=== PATIENT | male | born 1960 | race Caucasian/White ===

== ENCOUNTER 2018-04-27 09:29 | Day surgery (SDC) | payer BC, SELFPAY ==
[2018-04-27 09:54] VITALS: BP 142/90; PULSE 68; RESP 20; TEMP 36.6; O2SAT 95
[2018-04-27] MEDS: Lactated Ringers 1,000 ML 80 ML IV (10:20)
[2018-04-27] MEDS: Lidocaine 1% Pres-Free 5 ML VIAL (12:11)
--- NOTE | 2018-04-27 12:23 | W.PM.DSUDISC ---
Discharge Plan Disposition Patient Disposition: HOME Condition: Good Discharge Details Attending Provider: Saul Ramos Primary Care Provider: Syed Reyes [place] Meds and New Rx's Prescriptions: New hydrocodone-acetaminophen 5-325 mg Tablet 1 tab PO Q6H PRN PRN (Reason: Pain) Qty: 5 RF: 0 Continue trazodone 50 mg tablet 50 mg PO HS RF: 0 metoprolol succinate 50 MG tablet extended release 24 hr 50 mg PO DAILY RF: 0 aspirin [Aspir-81] 81 MG tablet,delayed release (DR/EC) 81 mg PO DAILY RF: 0 levothyroxine 88 MCG tablet 112 mcg PO DAILY RF: 0 hydrocortisone 30 GM cream 30 gm Topical BID RF: 0 pravastatin 20 MG tablet 20 mg PO DAILY RF: 0 enalapril maleate 20 MG tablet 20 mg PO DAILY RF: 0 olopatadine [Patanol] 5 ML drops 1 drp ophthalmic (eye) PRN PRNRF: 0 fluocinonide 15 GM cream 1 applic Topical PRN PRNRF: 0 fluticasone 16 GM spray,suspension 2 spry Inhalation DAILY RF: 0 coenzyme Q10 [CoQ-10] 100 MG capsule 100 tab PO DAILY RF: 0 cholecalciferol (vitamin D3) [Vitamin D3] 1,000 unit Capsule 1,000 unit PO DAILY RF: 0 sulfacetamide sodium 15 ML drops 2 drp ophthalmic (eye) TID RF: 0 atorvastatin 10 mg Tablet 10 mg PO DAILY RF: 0 lisinopril 20 mg Tablet 20 mg PO DAILY RF: 0 flaxseed oil 1,000 mg Capsule 1,000 mg PO RF: 0 ibuprofen 400 mg Tablet 400 mg PO BID PRNRF: 0 Discharge Instructions Stand Alone Forms: Richard Eddy Tunnel Release Equipment/Supplies: Sling Activity:: Elevate Remove Dressings/Wound Care:: 48 hours Shower/Bathe:: 48 hours Diet:: Normal Diet Discharge Orders Discharge Orders: Discharge Order (Routine); Ordered 04/27/18 Ordered By: Saul Ramos DS: Diagnosis Discharge Diagnosis (1) Left carpal tunnel syndrome: Status: Acute
[2018-04-27 12:55] VITALS: BP 146/99; PULSE 67; RESP 18; TEMP 36.1; O2SAT 95
[2018-04-27 13:15] VITALS: BP 152/96; PULSE 69; RESP 16; TEMP 35.9; O2SAT 97
--- NOTE | 2018-04-27 17:33 | W.PM.OP ---
Date of service: 04/27/18 Time of Service: 13:33 Operative Note DATE OF PROCEDURE: 04/27/18 PRE-OP DIAGNOSIS: Left Carpal Tunnel Syndrome POST-OP DIAGNOSIS: same PROCEDURE: Left Endoscopic Carpal Tunnel Release SURGEON: Saul Ramos ANESTHESIA: MAC ESTIMATED BLOOD LOSS: 0 PATHOLOGY: none sent TOURNIQUET TIME: 8 COMPLICATIONS: None Patient was transported to: same day Patient's condition: stable Indications: I have seen Efra in clinic for symptoms of carpal tunnel syndrome. The numbness, tingling, and pain limited function. Clinical exam findings with nerve conduction tests confirmed the diagnosis of carpal tunnel syndrome. Nonoperative measures such as bracing, time, activity modifications had been tried but disability and pain persisted. I discussed carpal tunnel release with the patient. I reviewed the risks of the procedure to include, but not limited to, bleeding, infection, pain, stiffness, incomplete release, damage to nerves or vessels, persistent numbness, recurrence. Despite these risks, the patient elected to proceed. Findings: There was tightened carpal tunnel. This was dilated and released successfully with the endoscopic with increased space within the tunnel. The antebrachial fascia was released proximally freeing the median nerve at the wrist. Procedure Description: Efra was greeted in the preoperative holding area where the correct side was identified and marked. The consent was reviewed with the patient and signed. The history and physical was updated. All questions were answered. Efra was taken back to the operating room. The patient was placed into the supine position on the operating room table with the left arm on an arm board. A nonsterile tourniquet was placed high onto the arm. All bony prominences were well padded. Prophylactic antibiotics in the form of cefazolin were administered. The left arm was then prepped with Chloraprep and draped in a standard fashion with stockinette and extremity drape. A timeout to confirm correct identity, side and site, procedure, allergies, anesthesia, and medical concerns was performed. The surgical site was marked in the volar wrist creases in line with the radial border of the fourth ray. This area was anesthetized with approximately 6cc of 1% Lidocaine. The limb was then exsanguinated with an Esmarch. The skin was incised with a 15 blade, approximately 1cm. The skin only was cut and the deeper tissue was dissected bluntly with a tenotomy scissor, avoiding passing nerve and venous structures. The fascia was penetrated and opened bluntly. A two-prong skin hook was placed under this proximal fascial edge. A series of hamate finders were used to identify and dilate the carpal tunnel. Synovial elevator was used to free synovial attachments to the underside of the transverse carpal ligament. My thumb was kept in the palm to svetlana the distal extent of the carpal tunnel and correctly position the hand. The [employer] endoscope was inserted without difficulty and without resistance. Excellent visualization showed horizontally running fibers of the transverse carpal ligament (TCL). The distal extent of the TCL was visualized and the end of the scope palpated with the thumb. The blade was elevated and withdrawn from distal to proximal. The TCL was split into two flaps. The endoscope was reinserted to confirm complete release and any remnant ligament was incised. The scope was withdrawn and the proximal aspect of the carpal tunnel was grossly inspected and appeared release with the median nerve visible. The antebrachial fascia at the level of the wrist was then freed from the overlying skin and then the underlying median nerve with blunt dissection. This was transected longitudinally for about 3cm proximal to the wrist incision. The wound was then irrigated with easy flow of irrigant distally and proximally. The incision was closed with a single 4-0 Nylon suture. The wound was dressed with Xeroform, Gauze, Kerlix and Konstantin. The tourniquet was deflated with the initial dressing and held with some pressure. Blood flow returned easily to all digits with capillary refill less than 2 seconds. The patient tolerated the procedure well and was returned to the Same Day Surgery area in a stable condition suffering no known complication.
== END 2018-04-27 13:45 | disposition home or self-care (01) ==
PROVIDERS: PCP Family Medicine; Visit Provider Student in an Organized Health Care Education/Training Program
PROC: 01N54ZZ Release Median Nerve, Percutaneous Endoscopic Approach (ICD-10-PCS; CPT 29848; principal; 2018-04-27 11:45)
DX: G56.02 Carpal tunnel syndrome, left upper limb (principal); E11.9 Type 2 diabetes mellitus without complications; I10 Essential (primary) hypertension
CPT/HCPCS: 29848; J0690; J1885; J2250; L3650

== ENCOUNTER 2018-07-23 12:21 | Outpatient (REF) | payer BC, SELFPAY ==
[2018-07-23 18:15] LABS: Anion Gap 9.8 mmol/L (3-11); BUN 14 mg/dL (7-18); CO2 27.2 mmol/L (21.0-32.0); CREATININE 0.95 mg/dL (0.70-1.30); Calcium 9.1 mg/dL (8.5-10.1); Chloride 103 mmol/L (98-107); Glucose 187 mg/dL (70-100); Potassium 4.1 mmol/L (3.5-5.1); Sodium 140 mmol/L (136-145)
== END 2018-07-23 12:41 ==
LOC: LBN 12:21
PROVIDERS: PCP Family Medicine; Visit Provider Family Medicine
DX: I10 Essential (primary) hypertension (principal); E11.9 Type 2 diabetes mellitus without complications
CPT/HCPCS: 80048

== ENCOUNTER 2019-03-23 08:14 | Outpatient (REF) | payer BC, SELFPAY ==
[2019-03-23 12:34] LABS: TSH (W/Ref FT4) 7.52 uIU/mL (0.36-3.74)
[2019-03-23 12:54] LABS: FREE T4 1.02 ng/dL (0.76-1.46)
== END 2019-03-23 08:34 ==
LOC: NCHCN 08:14
PROVIDERS: PCP Family Medicine; Visit Provider Family Medicine
DX: E03.9 Hypothyroidism, unspecified (principal)
CPT/HCPCS: 84439; 84443

== ENCOUNTER 2019-05-24 11:37 | Outpatient (REF) | payer BC, SELFPAY ==
[2019-05-24 13:14] LABS: HCT 43.3 % (40.0-50.0); HGB 14.6 g/dL (13.5-17.5); Mean Corp. HGB Concentration 33.7 g/dL (32.0-36.0); Mean Corpuscular Hemoglobin 32.5 pg (27.0-33.0); Mean Corpuscular Volume 96.4 fL (80-95); Mean Platelet Volume 8.9 fL (8.0-11.0); Platelet Count 279 x1000/uL (130-400); RBC 4.49 m/cumm (4.50-6.00); RBC Distribution Width 12.3 % (11.8-14.1); White Blood Cell Count 7.16 k/cumm (4.4-10.8)
[2019-05-24 14:12] LABS: ALT 47 U/L (16-63); AST 28 U/L (15-37); Albumin 3.6 g/dL (3.4-5.0); Alkaline Phosphatase 116 U/L (46-116); Anion Gap 10.7 mmol/L (3-11); BUN 11 mg/dL (7-18); Bilirubin, Total 0.3 mg/dL (0.2-1.0); CO2 24.3 mmol/L (21.0-32.0); Calcium 8.5 mg/dL (8.5-10.1); Calculated LDL 36 mg/dL; Chloride 105 mmol/L (98-107); Cholesterol 121 mg/dL (<200); Glucose 125 mg/dL (74-106); HDL Cholesterol 25 mg/dL (40-60); Potassium 4.2 mmol/L (3.5-5.1); Sodium 140 mmol/L (136-145); TSH 0.97 uIU/mL (0.36-3.74); Total Protein 7.1 g/dL (6.4-8.2); Triglyceride 303 mg/dL (<150)
== END 2019-05-24 11:57 ==
LOC: NCHCN 11:37
PROVIDERS: PCP Family Medicine; Visit Provider Family Medicine
DX: E03.9 Hypothyroidism, unspecified (principal); I10 Essential (primary) hypertension; E78.1 Pure hyperglyceridemia; Z00.00 Encounter for general adult medical examination without abnormal findings; E55.9 Vitamin D deficiency, unspecified
CPT/HCPCS: 80053; 80061; 82306; 85027; 84443

== ENCOUNTER 2019-09-21 11:43 | Outpatient (CLI) | payer BC, SELFPAY ==
--- NOTE | 2019-09-21 | DI.RAD_ITS ---
EXAM: XR WRIST LT COMPLETE CLINICAL HISTORY: LT WRIST PAIN M25.562, DORSAL MID CARPAL TENDERNESS AND LIMITED EXTENSION TECHNIQUE: COMPARISON: No exams were available for comparison FINDINGS: Three views were obtained. Carpal alignment appears within normal limits except for possible mild wi dening of navicular lunate joint. There are mild degenerative changes of the joints of the carpus mo st marked involving navicular multangular joints and multangular metacarpal joints. No other signifi cant findings. IMPRESSION:
== END 2019-09-21 12:03 ==
PROVIDERS: PCP Family Medicine; Visit Provider Family Medicine
DX: M25.532 Pain in left wrist (principal); M19.032 Primary osteoarthritis, left wrist
CPT/HCPCS: 73110

== ENCOUNTER 2020-03-28 08:42 | Outpatient (REF) | payer BC, SELFPAY ==
[2020-03-28 11:29] LABS: Hemoglobin A1C 6.4 % (<5.7)
[2020-03-28 11:58] LABS: ALT 44 U/L (16-63); AST 33 U/L (15-37); Albumin 3.7 g/dL (3.4-5.0); Alkaline Phosphatase 116 U/L (46-116); Anion Gap 9.8 mmol/L (3-11); BUN 13 mg/dL (7-18); Bilirubin, Total 0.4 mg/dL (0.2-1.0); CO2 25.2 mmol/L (21.0-32.0); CREATININE 0.85 mg/dL (0.70-1.30); Calcium 8.7 mg/dL (8.5-10.1); Calculated LDL 46 mg/dL (<100); Chloride 103 mmol/L (98-107); Cholesterol 147 mg/dL (<200); Glucose 113 mg/dL (74-106); HDL Cholesterol 26 mg/dL (40-60); Potassium 4.3 mmol/L (3.5-5.1); Sodium 138 mmol/L (136-145); TSH (W/Ref FT4) 4.19 uIU/mL (0.36-3.74); Total Protein 7.5 g/dL (6.4-8.2); Triglyceride 378 mg/dL (<150)
[2020-03-28 12:22] LABS: FREE T4 1.19 ng/dL (0.76-1.46)
== END 2020-03-28 09:02 ==
LOC: NCHCN 08:42
PROVIDERS: PCP Family Medicine; Visit Provider Family Medicine
DX: E11.9 Type 2 diabetes mellitus without complications (principal); E03.9 Hypothyroidism, unspecified; E78.1 Pure hyperglyceridemia; I10 Essential (primary) hypertension
CPT/HCPCS: 80053; 80061; 83036; 84439; 84443

== ENCOUNTER 2020-07-03 15:57 | Outpatient (REF) | payer BC, SELFPAY ==
[2020-07-03 16:08] LABS: TSH (W/Ref FT4) 0.97 uIU/mL (0.36-3.74)
== END 2020-07-03 16:17 ==
LOC: NCHCN 15:57
PROVIDERS: PCP Family Medicine; Visit Provider Family Medicine
DX: E03.9 Hypothyroidism, unspecified (principal)
CPT/HCPCS: 84443

== ENCOUNTER 2021-02-12 11:30 | Outpatient (REF) | payer BC, SELFPAY ==
[2021-02-12 14:17] LABS: Anion Gap 9.5 mmol/L (3-11); BUN 16 mg/dL (7-18); CO2 23.5 mmol/L (21.0-32.0); Calcium 8.7 mg/dL (8.5-10.1); Chloride 104 mmol/L (98-107); Glucose 258 mg/dL (74-106); Potassium 4.6 mmol/L (3.5-5.1); Sodium 137 mmol/L (136-145)
== END 2021-02-12 11:31 | disposition home or self-care (01) ==
LOC: LBN 11:30
PROVIDERS: PCP Family Medicine; Visit Provider Family Medicine
DX: E11.9 Type 2 diabetes mellitus without complications (principal)
CPT/HCPCS: 80048

== ENCOUNTER 2021-02-19 12:57 | Outpatient (CLI) | payer BC, SELFPAY ==
--- NOTE | 2021-02-19 | DI.RAD_ITS ---
Exam(s) XR CHEST 2V PA LATERAL EXAM: XR CHEST 2V PA LATERAL CLINICAL HISTORY: HEMOPTYSIS R04.2 TECHNIQUE: 2D digital imaging was performed. COMPARISON: CR CHEST 2 VIEWS PA,LAT from 12/12/2012 FINDINGS: The heart is not enlarged. The lungs are clear and well expanded. No pleural effusion seen. Mediastin al contours appear intact. IMPRESSION: Normal chest. RADIATION DOSE DELIVERED: Total DLP
== END 2021-02-19 13:17 ==
PROVIDERS: PCP Family Medicine; Visit Provider Family Medicine
DX: R04.2 Hemoptysis (principal)
CPT/HCPCS: 71046

== ENCOUNTER 2021-03-20 01:52 | Outpatient (CLI) | payer BC, SELFPAY ==
--- NOTE | 2021-03-20 | DI.CT_ITS ---
Exam(s) CT CHEST W EXAM: CT CHEST W CLINICAL HISTORY: HEMOPTYSIS, R04.2, SINGLE EPISODE TECHNIQUE: Imaging Protocol: Axial computed tomography images with coronal and sagittal reformatted images were created and reviewed CONTRAST MATERIAL: Intravenous: Omnipaque 350 Contrast volume:70 mL. COMPARISON: CR XR CHEST 2V PA LATERAL from 02/19/2021 CR XR CHEST 2V PA LATERAL from 02/19/2021 FINDINGS: Tracheobronchial tree: Patent where visualized. Mediastinum and Sandy: No dominant adenopathy or fluid collection. Pulmonary parenchyma: There is thickening of the interstitium predominantly in the basilar and periph eral location. There are faint ground-glass opacities seen predominantly in the lower lobes and the right middle lobe. No focal consolidating infiltrates are present. No pulmonary nodules are present . Pleura: No effusion or pneumothorax. Heart: The heart is not dilated. Mild coronary artery calcification. No pericardial effusion. Aorta: Thoracic aorta non-dilated. Mild atherosclerosis. Upper abdomen: There is diffuse decreased attenuation of the liver suggesting fatty infiltration. T here is a well-circumscribed 1.1 cm hypodensity in the subcapsular region of the left lobe of the warren er. There is a 1-2 mm nonobstructing stone in the superior pole of the right kidney. Lymph nodes: Within normal limits. Bones: Within normal limits for the patient's age. Soft tissues: Unremarkable. IMPRESSION: 1. Interstitial thickening in the basilar and peripheral location in the lungs suspicious for pulmona ry fibrosis. 2. Faint ground-glass opacities predominantly in the lower lobes and right middle lobe.The findings a re nonspecific but may include pneumonia, edema or hemorrhage. Please correlate clinically. 3. Fatty infiltration of the liver. 1.1 cm hypodensity in the left lobe of the liver. This may repr esent a cyst. Ultrasound may be considered for further evaluation. 4. Right nephrolithiasis. RADIATION DOSE DELIVERED: 753.73mGy.cm Total DLP DATA REPOSITORY: All CT scans at this facility are submitted to the National Radiology Data Registry (NRDR) Dose Index Registry (DIR) with the [employer] (A[employer]). RADIATION OPTIMIZATION: All CT scans at this facility use at least one of these dose optimization te chniques: automated exposure control; mA and/or kV adjustment per patient size (includes targeted exa ms where dose is matched to clinical indication); or iterative reconstruction.
[2021-03-20] MEDS: Omnipaque 350 MG/ML 100 ML BTL IJ (08:44)
== END 2021-03-20 02:12 ==
PROVIDERS: PCP Family Medicine; Visit Provider Family Medicine
DX: R04.2 Hemoptysis (principal); R91.8 Other nonspecific abnormal finding of lung field; K76.0 Fatty (change of) liver, not elsewhere classified; N20.0 Calculus of kidney
CPT/HCPCS: 71260; J3490

== ENCOUNTER 2021-03-28 02:12 | Outpatient (CLI) | payer BC, SELFPAY ==
[2021-03-28] MEDS: Inhaler, Assist Device 1 EACH MC (14:10)
[2021-03-28] MEDS: Albuterol HFA 18 GM 200 PUFF INH IH (14:10)
--- NOTE | 2021-04-01 14:28 | W.PFT ---
Date of service: 03/28/21 Time of Service: 12:58 Pulmonary Function Test Result Requesting Provider Syed Reyes Indications: Pulmonary fibrosis Interpretation Spirometry: There is no airflow limitation. There is not a significant bronchodilator effect. There is a restrictive pattern in spirometry. Lung Volumes: There is mild restriction Diffusion Capacity: There is a low diffusion capacity Airway Pressure: Airways resistance is normal Impression Mild restrictive lung disease Clinical Correlation therefore is recommended.
== END 2021-03-28 02:13 | disposition home or self-care (01) ==
PROVIDERS: PCP Family Medicine; Visit Provider Family Medicine
DX: J84.10 Pulmonary fibrosis, unspecified (principal); J98.4 Other disorders of lung
CPT/HCPCS: 94060; 94726; 94729

== ENCOUNTER 2021-04-29 16:26 | Outpatient (REF) | payer BC, SELFPAY ==
[2021-04-30 16:38] LABS: Rheumatoid Factor 9.6 IU/mL (<12.0)
[2021-05-01 10:19] LABS: Cyclic Citrullinated Peptide <2.5 U/mL (<5.0)
[2021-05-01 15:37] LABS: Scl 70 Antibodies, IgG <0.2 U
[2021-05-02 11:33] LABS: dsDNA Ab, IgG 20.6 IU/mL (<30.0)
[2021-05-02 12:23] LABS: SS-A Antibody 2.5 Units (<20.0)
[2021-05-02 12:25] LABS: SS-B (La) Ab, IgG 4.8 Units (<20.0)
[2021-05-02 12:40] LABS: Sm (Smith) Ab, IgG 5.5 Units (<20.0)
[2021-05-02 15:30] LABS: ANA Interpretation Positive (Negative)
[2021-05-15 16:11] LABS: Anti-EJ Ab Negative (Negative); Anti-Jo-1 Ab <20 Units (<20); Anti-Ku Ab Negative (Negative); Anti-MDA-5 Ab (CADM-140) <20 Units (<20); Anti-Mi-2-Ab Negative (Negative); Anti-NXP-2 (P140) Ab <20 Units (<20); Anti-OJ Ab Negative (Negative); Anti-PL-12 Ab Negative (Negative); Anti-PL-7 Ab Negative (Negative); Anti-PM/Scl-100 Ab <20 Units (<20); Anti-SRP Ab Negative (Negative); Anti-SS-A 52kD Ab, IgG <20 Units (<20); Anti-TIF-1gamma Ab <20 Units (<20); Anti-U1 RNP Ab <20 Units (<20); Anti-U2 RNP Ab Negative (Negative); Anti-U3 RNP (Fibrillarin) Negative (Negative)
== END 2021-04-29 16:27 | disposition home or self-care (01) ==
LOC: LBN 16:26
PROVIDERS: PCP Family Medicine; Visit Provider Student in an Organized Health Care Education/Training Program
DX: J84.10 Pulmonary fibrosis, unspecified (principal)
CPT/HCPCS: 83516; 86200; 86235; 86038; 86225; 86431

== ENCOUNTER 2021-05-24 15:18 | Outpatient (REF) | payer BC, SELFPAY ==
[2021-05-24 16:23] LABS: ALT 45 U/L (16-63); AST 30 U/L (15-37); Albumin 3.8 g/dL (3.4-5.0); Alkaline Phosphatase 136 U/L (46-116); Bilirubin, Direct 0.1 mg/dL (0.0-0.2); Bilirubin, Total 0.3 mg/dL (0.2-1.0); Total Protein 7.8 g/dL (6.4-8.2)
== END 2021-05-24 15:19 | disposition home or self-care (01) ==
LOC: LBN 15:18
PROVIDERS: PCP Family Medicine; Visit Provider Student in an Organized Health Care Education/Training Program
DX: J84.10 Pulmonary fibrosis, unspecified (principal)
CPT/HCPCS: 80076; 85025

== ENCOUNTER 2021-06-14 13:54 | Outpatient (REF) | payer BC, SELFPAY ==
[2021-06-14 12:20] LABS: Abs Immature Grans 0.05 10^3/uL (0.0-0.06); Absolute Basophil Count 0.08 10^3/uL (0.0-0.2); Absolute Lymphocyte Count 2.04 10^3/uL (1.2-3.4); Absolute Monocyte Count 0.87 10^3/uL (0.1-0.8); Absolute Neutrophil Count 4.69 10^3/uL (1.2-6.7); Basophils % 0.9; Eosinophils % 8.3; HCT 39.7 % (40.0-50.0); Immature Grans % 0.6; Lymphocytes % 24.2; MCHC 32.7 % (32.0-36.0); MCV 94.5 fL (80-95); Monocytes % 10.3; Neutrophils % 55.7; Nucleated RBC 0 %; Platelet Count 275 10^3/uL (130-400); RDW 12.8 % (11.8-14.1); RDW-SD 43.8 fL; WBC 8.43 10^3/uL (4.4-10.8)
[2021-06-14 12:34] LABS: Prothrombin Time 10.1 sec (9.3-11.0)
== END 2021-06-14 13:55 | disposition home or self-care (01) ==
LOC: LBN 13:54
PROVIDERS: PCP Family Medicine; Visit Provider Student in an Organized Health Care Education/Training Program
DX: J84.112 Idiopathic pulmonary fibrosis (principal)
CPT/HCPCS: 85025; 85610

== ENCOUNTER 2021-07-08 15:53 | Outpatient (CLI) | payer BC, SELFPAY ==
--- NOTE | 2021-07-08 | DI.RAD_ITS ---
Exam(s) XR HAND LT COMPLETE EXAM: XR HAND LT COMPLETE CLINICAL HISTORY: LEFT HAND JOINT PAIN M79.642 PAIN AND STIFFNESS 3RD PIP/MCP AND CMC AREA. TECHNIQUE: 2D digital imaging was performed. COMPARISON: No exams were available for comparison FINDINGS: BONES: No acute fracture is present. No bony destructive lesion is seen. JOINTS: No dislocation present. Joint space narrowing and mild periarticular spurring 1st carpal meta carpal joint. Minimal degenerative changes are seen in the distal interphalangeal joints of the fing ers. The metacarpophalangeal joints are unremarkable. SOFT TISSUE: Normal. IMPRESSION: Moderate degenerative changes 1st carpal metacarpal joint. Minimal degenerative changes interphalang eal joints. DATA REPOSITORY: RADIATION DOSE DELIVERED:
== END 2021-07-08 16:13 ==
PROVIDERS: PCP Family Medicine; Visit Provider Family Medicine
DX: M25.542 Pain in joints of left hand (principal); M18.12 Unilateral primary osteoarthritis of first carpometacarpal joint, left hand; M19.042 Primary osteoarthritis, left hand
CPT/HCPCS: 73130

== ENCOUNTER 2021-07-08 17:31 | Outpatient (REF) | payer BC, SELFPAY ==
[2021-07-08 16:27] LABS: Iron 65 ug/dL (65-175); Total Iron Binding Capacity 335 ug/dL (250-450); Transferrin Sat 19 % (20-55)
[2021-07-08 16:46] LABS: Vitamin D 25 Total 29.3 ng/mL (30-100)
[2021-07-08 16:54] LABS: Ferritin 78 ng/mL (26-388); Folate 12.2 ng/mL (8.6-20.0); TSH (W/Ref FT4) 1.18 uIU/mL (0.36-3.74); Vitamin B12 609 pg/mL (193-986)
== END 2021-07-08 17:32 | disposition home or self-care (01) ==
LOC: NCHCN 17:31
PROVIDERS: PCP Family Medicine; Visit Provider Family Medicine
DX: D64.9 Anemia, unspecified (principal); E03.9 Hypothyroidism, unspecified; E55.9 Vitamin D deficiency, unspecified; R94.8 Abnormal results of function studies of other organs and systems
CPT/HCPCS: 82306; 82607; 82728; 82746; 83540; 83550; 84443

== ENCOUNTER 2021-08-02 18:47 | Outpatient (REF) | payer BC, SELFPAY ==
[2021-08-02 18:04] LABS: Abs Immature Grans 0.02 10^3/uL (0.0-0.06); Absolute Basophil Count 0.04 10^3/uL (0.0-0.2); Absolute Eosinophil Count 0.66 10^3/uL (0.0-0.7); Absolute Lymphocyte Count 2.41 10^3/uL (1.2-3.4); Absolute Monocyte Count 0.78 10^3/uL (0.1-0.8); Absolute Neutrophil Count 3.78 10^3/uL (1.2-6.7); Basophils % 0.5; Eosinophils % 8.6; HCT 39.6 % (40.0-50.0); HGB 13.3 g/dL (13.5-17.5); Immature Grans % 0.3; Lymphocytes % 31.3; MCHC 33.6 % (32.0-36.0); MCV 95.2 fL (80-95); MPV 8.8 fL (8.0-11.0); Monocytes % 10.1; Neutrophils % 49.2; Nucleated RBC 0 %; Platelet Count 262 10^3/uL (130-400); RBC 4.16 10^6/uL (4.36-5.78); RDW 12.7 % (11.8-14.1); RDW-SD 43.9 fL; WBC 7.69 10^3/uL (4.4-10.8)
[2021-08-02 18:52] LABS: ALT 44 U/L (16-63); AST 31 U/L (15-37); Albumin 3.7 g/dL (3.4-5.0); Alkaline Phosphatase 148 U/L (46-116); Bilirubin, Direct 0.1 mg/dL (0.0-0.2); Bilirubin, Total 0.4 mg/dL (0.2-1.0); Total Protein 7.7 g/dL (6.4-8.2)
== END 2021-08-02 18:48 | disposition home or self-care (01) ==
LOC: LBN 18:47
PROVIDERS: PCP Family Medicine; Visit Provider Student in an Organized Health Care Education/Training Program
DX: J84.112 Idiopathic pulmonary fibrosis (principal)
CPT/HCPCS: 80076; 85025

== ENCOUNTER 2021-09-03 19:08 | Outpatient (REF) | payer BC, SELFPAY ==
[2021-09-03 18:06] LABS: ALT 46 U/L (16-63); AST 33 U/L (15-37); Albumin 3.9 g/dL (3.4-5.0); Alkaline Phosphatase 140 U/L (46-116); Bilirubin, Direct 0.1 mg/dL (0.0-0.2); Bilirubin, Total 0.4 mg/dL (0.2-1.0); Total Protein 8.1 g/dL (6.4-8.2)
[2021-09-03 21:25] LABS: Abs Immature Grans 0.01 10^3/uL (0.0-0.06); Absolute Basophil Count 0.05 10^3/uL (0.0-0.2); Absolute Eosinophil Count 0.63 10^3/uL (0.0-0.7); Absolute Lymphocyte Count 2.38 10^3/uL (1.2-3.4); Absolute Monocyte Count 0.88 10^3/uL (0.1-0.8); Absolute Neutrophil Count 4.18 10^3/uL (1.2-6.7); Basophils % 0.6; Eosinophils % 7.7; HCT 42.9 % (40.0-50.0); HGB 14.5 g/dL (13.5-17.5); Immature Grans % 0.1; Lymphocytes % 29.3; MCH 32.4 pg (27.0-33.0); MCHC 33.8 % (32.0-36.0); MCV 95.8 fL (80-95); Monocytes % 10.8; Neutrophils % 51.5; Nucleated RBC 0 %; Platelet Count 258 10^3/uL (130-400); RBC 4.48 10^6/uL (4.36-5.78); RDW 13.1 % (11.8-14.1); RDW-SD 45.8 fL; WBC 8.13 10^3/uL (4.4-10.8)
== END 2021-09-03 19:09 | disposition home or self-care (01) ==
LOC: LBN 19:08
PROVIDERS: PCP Family Medicine; Visit Provider Student in an Organized Health Care Education/Training Program
DX: J84.112 Idiopathic pulmonary fibrosis (principal); Z79.899 Other long term (current) drug therapy
CPT/HCPCS: 80076; 85025

== ENCOUNTER 2022-01-13 16:24 | Outpatient (REF) | payer OTHER, SELFPAY ==
[2022-01-13 17:06] LABS: Abs Immature Grans 0.01 10^3/uL (0.0-0.06); Absolute Basophil Count 0.07 10^3/uL (0.0-0.2); Absolute Eosinophil Count 0.87 10^3/uL (0.0-0.7); Absolute Lymphocyte Count 1.96 10^3/uL (1.2-3.4); Absolute Monocyte Count 0.81 10^3/uL (0.1-0.8); Absolute Neutrophil Count 3.94 10^3/uL (1.2-6.7); Basophils % 0.9; Eosinophils % 11.4; HCT 37.5 % (40.0-50.0); HGB 12.8 g/dL (13.5-17.5); Immature Grans % 0.1; Lymphocytes % 25.6; MCH 32.7 pg (27.0-33.0); MCHC 34.1 % (32.0-36.0); MCV 96 fL (80-95); MPV 8.8 fL (8.0-11.0); Monocytes % 10.6; Neutrophils % 51.4; Platelet Count 268 10^3/uL (130-400); RBC 3.92 10^6/uL (4.36-5.78); RDW 12.5 % (11.8-14.1); RDW-SD 43.5 fL; WBC 7.66 10^3/uL (4.4-10.8)
[2022-01-13 17:14] LABS: ALT 45 U/L (16-63); AST 36 U/L (15-37); Albumin 3.6 g/dL (3.4-5.0); Alkaline Phosphatase 120 U/L (46-116); Bilirubin, Direct 0.1 mg/dL (0.0-0.2); Bilirubin, Total 0.4 mg/dL (0.2-1.0); Total Protein 7.5 g/dL (6.4-8.2)
== END 2022-01-13 16:25 | disposition home or self-care (01) ==
LOC: LBN 16:24
PROVIDERS: PCP Family Medicine; Visit Provider Student in an Organized Health Care Education/Training Program
DX: J84.112 Idiopathic pulmonary fibrosis (principal); K21.9 Gastro-esophageal reflux disease without esophagitis; Z51.81 Encounter for therapeutic drug level monitoring
CPT/HCPCS: 80076; 85025

== ENCOUNTER 2022-01-23 01:57 | Outpatient (CLI) | payer OTHER, SELFPAY ==
[2022-01-23] MEDS: Albuterol HFA 18 GM 200 PUFF INH IH (14:14)
[2022-01-23] MEDS: Inhaler, Assist Device 1 EACH MC (14:14)
--- NOTE | 2022-01-24 14:51 | W.PFT ---
Date of service: 01/23/22 Time of Service: 13:03 Pulmonary Function Test Result Requesting Provider Keisha Indications: IPF Interpretation Spirometry: There is no airflow limitation. The FVC is low. There is no significant bronchodilator response. Lung Volumes: Lung volumes are normal Diffusion Capacity: The diffusion is low. Airway Pressure: Normal airways resistance. Impression The diffusion is low, with otherwise normal pulmonary function testing. Note: When compared to 03/28/21, the FEV1, FVC and TLC have improved, the DLCO is unchanged. Clinical Correlation therefore is recommended.
== END 2022-01-23 01:58 | disposition home or self-care (01) ==
LOC: RT 01:57
PROVIDERS: PCP Family Medicine; Visit Provider Student in an Organized Health Care Education/Training Program
DX: J84.112 Idiopathic pulmonary fibrosis (principal); Z87.891 Personal history of nicotine dependence
CPT/HCPCS: 94060; 94726; 94729

== ENCOUNTER 2022-02-10 17:26 | Outpatient (REF) | payer OTHER, SELFPAY ==
[2022-02-10 15:45] LABS: Hemoglobin A1C 6.3 % (<5.7)
[2022-02-11 09:59] LABS: Hepatitis B Surface Ag Negative (Negative)
[2022-02-11 10:26] LABS: HBs Antibody, Quant 6.8 mIU/mL (See Note); HIV-1/2 Ag & Ab Screen Negative (Negative); Hepatitis B Surface Ab Negative (See Note)
[2022-02-11 10:50] LABS: Hep A Total Ab w Rflx IgM Negative (Negative)
== END 2022-02-10 17:27 | disposition home or self-care (01) ==
LOC: NCHCN 17:26
PROVIDERS: PCP Family Medicine; Visit Provider Family Medicine
DX: Z00.00 Encounter for general adult medical examination without abnormal findings (principal); Z11.59 Encounter for screening for other viral diseases; Z11.4 Encounter for screening for human immunodeficiency virus [HIV]; E11.9 Type 2 diabetes mellitus without complications
CPT/HCPCS: 86706; 86709; 87340; 87389; 83036

== ENCOUNTER 2022-05-16 09:54 | Outpatient (CLI) | payer OTHER, SELFPAY ==
[2022-05-16 13:33] LABS: Abs Immature Grans 0.02 10^3/uL (0.0-0.06); Absolute Basophil Count 0.08 10^3/uL (0.0-0.2); Absolute Eosinophil Count 0.68 10^3/uL (0.0-0.7); Absolute Lymphocyte Count 1.76 10^3/uL (1.2-3.4); Absolute Monocyte Count 0.67 10^3/uL (0.1-0.8); Absolute Neutrophil Count 4.59 10^3/uL (1.2-6.7); Eosinophils % 8.7; HCT 41.3 % (40.0-50.0); HGB 13.6 g/dL (13.5-17.5); Immature Grans % 0.3; Lymphocytes % 22.6; MCH 31.6 pg (27.0-33.0); MCHC 32.9 % (32.0-36.0); MCV 96 fL (80-95); Monocytes % 8.6; Neutrophils % 58.8; Platelet Count 247 10^3/uL (130-400); RBC 4.31 10^6/uL (4.36-5.78); RDW 13.7 % (11.8-14.1); RDW-SD 48.9 fL
[2022-05-16 13:43] LABS: ALT 35 U/L (16-63); AST 28 U/L (15-37); Albumin 3.5 g/dL (3.4-5.0); Alkaline Phosphatase 127 U/L (46-116); Anion Gap 10.3 mmol/L (3-11); BUN 15 mg/dL (7-18); Bilirubin, Total 0.4 mg/dL (0.2-1.0); CO2 24.7 mmol/L (21.0-32.0); CREATININE 1.1 mg/dL (0.70-1.30); Calcium 8.5 mg/dL (8.5-10.1); Chloride 104 mmol/L (98-107); Estimated GFR 75.43 (mL/min/1.73m2); Glucose 207 mg/dL (74-106); Potassium 4.2 mmol/L (3.5-5.1); Sodium 139 mmol/L (136-145); Total Protein 7.3 g/dL (6.4-8.2)
== END 2022-05-16 09:55 | disposition home or self-care (01) ==
LOC: LBN 09:56
PROVIDERS: Student in an Organized Health Care Education/Training Program; PCP Family Medicine; Visit Provider Dermatology
DX: J84.112 Idiopathic pulmonary fibrosis (principal); Z79.899 Other long term (current) drug therapy
CPT/HCPCS: 80053; 85025

== ENCOUNTER 2022-07-17 15:20 | Outpatient (REF) | payer OTHER, SELFPAY ==
[2022-07-17 16:49] LABS: Creatine Kinase 334 U/L (39-308); TSH (W/Ref FT4) 5.43 uIU/mL (0.36-3.74)
[2022-07-17 17:47] LABS: FREE T4 0.98 ng/dL (0.76-1.46)
[2022-07-17 18:28] LABS: Vitamin D 25 Total 28.4 ng/mL (30-100)
== END 2022-07-17 15:21 | disposition home or self-care (01) ==
LOC: NCHCN 15:20
PROVIDERS: PCP Family Medicine; Visit Provider Family Medicine
DX: E03.9 Hypothyroidism, unspecified (principal); R94.8 Abnormal results of function studies of other organs and systems; E55.9 Vitamin D deficiency, unspecified
CPT/HCPCS: 82306; 82550; 84439; 84443

== ENCOUNTER 2022-07-24 04:18 | Outpatient (CLI) | payer OTHER, SELFPAY ==
--- NOTE | 2022-07-25 13:59 | W.PFT ---
Date of service: 07/24/22 Time of Service: 10:00 Pulmonary Function Test Result Indications: IPF Interpretation Spirometry: There is no airflow limitation. Diffusion Capacity: Decreased diffusion. Impression Decreased diffusion. Note: When compared to 07/15/22, the FEV1 and FVC are much improved. When compared to 01/23/22, the diffusion is stable, but the FVC is slightly decreased. Clinical Correlation therefore is recommended.
== END 2022-07-24 04:19 | disposition home or self-care (01) ==
LOC: RT 04:18
PROVIDERS: PCP Family Medicine; Visit Provider Student in an Organized Health Care Education/Training Program
DX: J84.112 Idiopathic pulmonary fibrosis (principal)
CPT/HCPCS: 94729; 94010

== ENCOUNTER 2022-09-05 14:43 | Outpatient (REF) | payer OTHER, SELFPAY ==
[2022-09-05 14:49] LABS: Abs Immature Grans 0.02 10^3/uL (0.0-0.06); Absolute Basophil Count 0.08 10^3/uL (0.0-0.2); Absolute Eosinophil Count 0.71 10^3/uL (0.0-0.7); Absolute Lymphocyte Count 1.95 10^3/uL (1.2-3.4); Absolute Monocyte Count 0.84 10^3/uL (0.1-0.8); Absolute Neutrophil Count 4.75 10^3/uL (1.2-6.7); Eosinophils % 8.5; HCT 41.5 % (40.0-50.0); HGB 13.7 g/dL (13.5-17.5); Immature Grans % 0.2; Lymphocytes % 23.4; MCH 31.7 pg (27.0-33.0); MCV 96 fL (80-95); Monocytes % 10.1; Neutrophils % 56.8; Platelet Count 269 10^3/uL (130-400); RBC 4.32 10^6/uL (4.36-5.78); RDW 13.1 % (11.8-14.1); RDW-SD 46.2 fL; WBC 8.35 10^3/uL (4.4-10.8)
[2022-09-05 15:13] LABS: ALT 38 U/L (16-63); AST 30 U/L (15-37); Albumin 3.5 g/dL (3.4-5.0); Alkaline Phosphatase 132 U/L (46-116); Bilirubin, Direct 0.1 mg/dL (0.0-0.2); Bilirubin, Total 0.4 mg/dL (0.2-1.0); Total Protein 7.3 g/dL (6.4-8.2)
== END 2022-09-05 14:44 | disposition home or self-care (01) ==
LOC: NCHCN 14:43
PROVIDERS: PCP Family Medicine; Visit Provider Family Medicine
DX: E03.9 Hypothyroidism, unspecified (principal); Z79.899 Other long term (current) drug therapy
CPT/HCPCS: 80076; 84443; 85025

== ENCOUNTER 2022-11-25 09:08 | Outpatient (CLI) | payer OTHER, SELFPAY ==
[2022-11-25 15:41] LABS: Abs Immature Grans 0.01 10^3/uL (0.0-0.06); Absolute Basophil Count 0.06 10^3/uL (0.0-0.2); Absolute Eosinophil Count 0.61 10^3/uL (0.0-0.7); Absolute Monocyte Count 0.71 10^3/uL (0.1-0.8); Absolute Neutrophil Count 4.15 10^3/uL (1.2-6.7); Basophils % 0.8; Eosinophils % 8.3; HCT 38.1 % (40.0-50.0); HGB 12.2 g/dL (13.5-17.5); Immature Grans % 0.1; Lymphocytes % 24.5; MCH 30.3 pg (27.0-33.0); MCV 95 fL (80-95); MPV 9.3 fL (8.0-11.0); Monocytes % 9.7; Neutrophils % 56.6; Platelet Count 254 10^3/uL (130-400); RBC 4.02 10^6/uL (4.36-5.78); RDW 13.1 % (11.8-14.1); RDW-SD 45.8 fL; WBC 7.34 10^3/uL (4.4-10.8)
[2022-11-25 15:59] LABS: ALT 35 U/L (16-63); AST 31 U/L (15-37); Albumin 3.6 g/dL (3.4-5.0); Alkaline Phosphatase 133 U/L (46-116); Bilirubin, Direct 0.1 mg/dL (0.0-0.2); Bilirubin, Total 0.4 mg/dL (0.2-1.0); Total Protein 7.5 g/dL (6.4-8.2)
== END 2022-11-25 09:09 | disposition home or self-care (01) ==
LOC: PUL 09:12 → LBN 13:21
PROVIDERS: PCP Family Medicine; Visit Provider Student in an Organized Health Care Education/Training Program
DX: J84.112 Idiopathic pulmonary fibrosis (principal); R91.1 Solitary pulmonary nodule; Z51.81 Encounter for therapeutic drug level monitoring; I10 Essential (primary) hypertension; E03.9 Hypothyroidism, unspecified; Z79.899 Other long term (current) drug therapy
CPT/HCPCS: 80076; 85025

== ENCOUNTER 2023-01-21 10:35 | Outpatient (REF) | payer OTHER, SELFPAY ==
[2023-01-21 17:49] LABS: Anion Gap 11.1 mmol/L (3-11); BUN 14 mg/dL (7-18); CO2 23.9 mmol/L (21.0-32.0); Calcium 8.6 mg/dL (8.5-10.1); Chloride 104 mmol/L (98-107); Estimated GFR 84.05 (mL/min/1.73m2); Ferritin 54 ng/mL (26-388); Glucose 199 mg/dL (74-106); Potassium 4.4 mmol/L (3.5-5.1); Sodium 139 mmol/L (136-145); Vitamin B12 646 pg/mL (193-986)
[2023-01-21 18:31] LABS: Iron 56 ug/dL (65-175); Total Iron Binding Capacity 350 ug/dL (250-450); Transferrin Sat 16 % (20-55)
== END 2023-01-21 10:36 | disposition home or self-care (01) ==
LOC: NCHCN 10:35
PROVIDERS: PCP Family Medicine; Visit Provider Family Medicine
DX: D64.9 Anemia, unspecified (principal); E11.9 Type 2 diabetes mellitus without complications; Z79.899 Other long term (current) drug therapy
CPT/HCPCS: 80048; 82607; 82728; 83540; 83550

== ENCOUNTER 2023-03-23 06:18 | Day surgery (SDC) | payer OTHER, SELFPAY ==
--- NOTE | 2023-03-22 19:03 | W.PM.DSUDISC ---
Date of service: 03/23/23 Time of Service: 07:52 Discharge Plan Disposition Patient Disposition: Home Condition: Good Discharge Details Reason For Visit: Screening colonoscopy Attending Provider: Erick Lawson Primary Care Provider: Syed Reyes [place] Meds and New Rx's Prescriptions: Continued trazodone 50 mg tablet 50 mg PO HS Patient Comments: 03.19.18 PT STATES HIS PCP CHANGED HIS ZOLPIDEM TO THIS.HE metoprolol succinate 50 MG tablet extended release 24 hr 50 mg PO DAILY amlodipine 5 mg tablet 5 mg PO DAILY Metamucil 3.4 gram/5.4 gram powder 1 tbsp PO DAILY Rx Instructions: mix into at least 8 oz of water or juice before administering nintedanib 150 mg capsule 150 mg PO Q12H Qty: 60 12RF levothyroxine 88 mcg tablet 150 mcg PO DAILY Patient Comments: patient states he takes 137mcg loratadine [Allergy Relief (loratadine)] 10 mg tablet 10 mg PO DAILY PRN famotidine 40 mg tablet See Rx Instructions .ROUTE .COMPLEX Qty: 90 12RF Dose Instruction: TAKE ONE TABLET BY MOUTH AT BEDTIME Rx Instructions: TAKE ONE TABLET BY MOUTH AT BEDTIME enalapril maleate 20 MG tablet 20 mg PO DAILY Patient Comments: pt. states he no longer takes olopatadine [Patanol] 5 ML drops 1 drp ophthalmic (eye) PRN PRN fluocinonide 15 GM cream 1 applic Topical PRN PRN fluticasone propionate 16 GM spray,suspension 2 spry Inhalation DAILY Patient Comments: nasacort coenzyme Q10 [CoQ-10] 100 mg capsule 100 mg PO DAILY lisinopril 20 mg Tablet 20 mg PO DAILY flaxseed oil 1,000 mg Capsule 1,000 mg PO DIRECTED ibuprofen 400 mg Tablet 400 mg PO BID PRN atorvastatin 10 mg tablet 10 mg PO .QOD Discontinued bisacodyl [Dulcolax (bisacodyl)] 5 mg tablet,delayed release (DR/EC) 5 mg PO ONCE Qty: 4 0RF Rx Instructions: Take per colonoscopy instructions provided by ordering providers office polyethylene glycol 3350 17 gram/dose powder 17 g PO ONCE Qty: 238 0RF Rx Instructions: Take per colonoscopy instructions provided by ordering providers office No Action Men's One Daily Tablet 1 tab PO DAILY iron 18 mg Tablet See Rx Instructions .ROUTE .COMPLEX Rx Instructions: 18 mg orally QOD cholecalciferol (vitamin D3) [Vitamin D3] 25 mcg (1,000 unit) tablet 25 mcg PO DAILY Patient Comments: Take 1 tablet by mouth once a day Discharge Instructions Additional Instructions: Abe, your colonoscopy went fine today. Like we talked about beforehand, you do have diverticulosis. Otherwise, I did not see any signs of tumors or polyps. I would recommend another colonoscopy in 10 years. 1. If tolerated, consume a soft, low fiber diet for 1-2 days. 2. Do not drive, drink alcohol, operate machinery, make critical decisions, or do activities that require coordination or balance for 24 hours. 3. Because air was put into your colon during the procedure, expelling air from your rectum (passing gas or farting) is normal. 4. You may not have a bowel movement for 1-3 days because of the colonoscopy prep. This is normal. 5. Go directly to the emergency room if you notice any of the following: Develop chills (warm to touch), or if you have a thermometer and your temperature is above 101 Difficulty breathing or difficultly swallowing Persistent vomiting Severe abdominal pain, other than gas cramps Severe chest pain Black, tarry stools Any bleeding ? exceeding one tablespoon 6. Call your physician if the site where your intravenous was started becomes red, swollen, painful, and warm to touch. 7. Your physician has reviewed your pre-procedure medications. Please continue to take those medications as previously ordered. You will be given specific information/education regarding any changes to your medications before leaving. Activity:: Activity as Tolerated Diet:: As Tolerated Discharge Orders Discharge Orders: Discharge Order (Routine); Ordered 03/22/23 Ordered By: Erick Lawson DS: Diagnosis Discharge Diagnosis (1) Screen for colon cancer: Status: Acute
--- NOTE | 2023-03-22 19:05 | COLE_ITS ---
Date of service: 03/23/23 Time of Service: 07:53 Colonoscopy Report Date of procedure: 03/23/23 Pre-op diagnosis general: Screening colonoscopy Post-op diagnosis procedure note: other (Diverticulosis) Procedure: Colonoscopy Surgeon: Erick Lawson Anesthesia Type: General:No Airway Estimated blood loss (mL): 0 Pathology: none sent Complications: None Disposition: same day Indications: Efra is 62 years old and he is due for a screening colonoscopy Prep: Miralax/Dulcolax Procedure Start Time: 07:27 Procedure End Time: 07:39 Retraction Time: 9 Findings: Diverticulosis Procedure Description: After the induction of monitored anesthetic care, and with the patient in left lateral decubitus position, I began by performing an external anorectal exam.? Perineum and skin were normal, as was the anal verge.? There were some external skin tags consistent with fibrosed hemorrhoids.? Next, I performed a digital rectal exam.? I did not appreciate any abnormal findings.? Next, I advanced a colonoscope into the rectal vault.? I performed retroflexion.? This was normal.? Using insufflation, I then advanced the colonoscope beyond the rectal folds and into the sigmoid colon before advancing towards the cecum.? The quality of the p rep was excellent.? There was diverticulosis, mostly centered in the sigmoid colon, extending from about 25 cm to about 40 cm from the anal verge the scope was noted to be in the cecum by identification of the ileocecal valve and appendiceal orifice.? I then began withdrawing the colonoscope using repeated irrigation as necessary for full evaluation of the colonic mucosa. ?Once the scope was withdrawn to the level of the rectum, great care was taken to examine portions of the rectal folds.? I did not see any signs of tumors or polyps anywhere along the colon. finally, the scope was withdrawn and the patient was brought to the same-day surgery recovery unit as the anesthetic wore off. ?The findings and instructions were shared with the patient prior to discharge.
[2023-03-23 06:46] VITALS: BP 154/86; PULSE 75; RESP 18; TEMP 36.7; O2SAT 97
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
[2023-03-23] MEDS: Lactated Ringers 1,000 ML 80 ML IV (07:05)
[2023-03-23 07:07] VITALS: BMI 28.7
[2023-03-23 07:45] VITALS: BP 106/69; PULSE 75; RESP 17; TEMP 36.5; O2SAT 96
[2023-03-23 08:15] VITALS: BP 124/73; PULSE 62; RESP 16; TEMP 36.9; O2SAT 96
--- NOTE | 2023-03-23 08:42 | W.ANESPOSTOP ---
Postoperative Evaluation Date, Time and Location Date Performed: 03/23/23 Time Performed: 07:54 Patient Location: Day Surgery Unit Vital Signs Most Recent Imported Vital Signs: Most Recent Vital Signs Temp Pulse Resp BP Pulse Ox 36.9 C 62 16 124/73 96 03/23/23 08:15 03/23/23 08:15 03/23/23 08:15 03/23/23 08:15 03/23/23 08:15 Pain Score Most Recent Pain Score: Most Recent Pain Score Pain Level 0 03/23/23 08:15 Assessment Mental Status: Awake (Alert & Oriented to Patient Baseline) Airway and Respiratory Function: Patent airway with normal (patient baseline) respiratory exam Cardiovascular Function: Hemodynamically Stable Hydration Status: Adequately Hydrated Nausea & Vomiting: No Nausea or Vomiting Pain: Pt. Denies Any Pain Peripheral Nerve Block: Patient did not receive a nerve block
== END 2023-03-23 08:50 | disposition home or self-care (01) ==
PROVIDERS: PCP Family Medicine; Visit Provider Surgery
PROC: 0DJD8ZZ Inspection of Lower Intestinal Tract, Via Natural or Artificial Opening Endoscopic (ICD-10-PCS; CPT 45378; principal; 2023-03-23 07:30)
DX: Z12.11 Encounter for screening for malignant neoplasm of colon (principal); K57.30 Diverticulosis of large intestine without perforation or abscess without bleeding
CPT/HCPCS: 45378; J2001

== ENCOUNTER 2023-05-25 04:46 | Outpatient (CLI) | payer OTHER, SELFPAY ==
--- NOTE | 2023-06-08 11:05 | W.PFT ---
Date of service: 06/24/23 Time of Service: 10:05 Pulmonary Function Test Result Indications: IPF Interpretation Spirometry: There is restrictive appearing spirometry. Lung Volumes: Normal lung volumes Diffusion Capacity: Normal diffusion Airway Pressure: Normal airways resistance Impression Normal pulmonary function testing Note: Lung function is stable from 07/24/22 Clinical Correlation therefore is recommended.
== END 2023-05-25 04:47 | disposition home or self-care (01) ==
PROVIDERS: PCP Family Medicine; Visit Provider Student in an Organized Health Care Education/Training Program
DX: J84.112 Idiopathic pulmonary fibrosis (principal)
CPT/HCPCS: 94726; 94729; 94010

== ENCOUNTER 2023-07-21 09:33 | Outpatient (REF) | payer OTHER, SELFPAY ==
[2023-07-21 15:53] LABS: Calculated LDL 48 mg/dL (<100); Cholesterol 115 mg/dL (<200); HDL Cholesterol 36 mg/dL (40-60); Triglyceride 159 mg/dL (<150)
[2023-07-21 15:58] LABS: Hemoglobin A1C 5.8 % (<5.7)
== END 2023-07-21 09:34 | disposition home or self-care (01) ==
LOC: NCHCN 09:33
PROVIDERS: PCP Family Medicine; Visit Provider Family Medicine
DX: E11.9 Type 2 diabetes mellitus without complications (principal)
CPT/HCPCS: 80061; 83036

== ENCOUNTER 2023-07-28 13:56 | Outpatient (REF) | payer OTHER, SELFPAY ==
[2023-07-28 15:37] LABS: HCT 37.2 % (40.0-50.0); HGB 12.7 g/dL (13.5-17.5); MCH 33.2 pg (27.0-33.0); MCHC 34.1 % (32.0-36.0); MCV 97 fL (80-95); MPV 8.9 fL (8.0-11.0); Platelet Count 271 10^3/uL (130-400); RBC 3.82 10^6/uL (4.36-5.78); RDW-SD 46.1 fL; WBC 8.92 10^3/uL (4.4-10.8)
[2023-07-28 16:45] LABS: Ferritin 184 ng/mL (26-388); TSH (W/Ref FT4) 0.49 uIU/mL (0.36-3.74)
[2023-07-28 17:18] LABS: Iron 49 ug/dL (65-175); Total Iron Binding Capacity 288 ug/dL (250-450); Transferrin Sat 17 % (20-55)
[2023-07-28 17:43] LABS: Vitamin D 25 Total 27.4 ng/mL (30-100)
== END 2023-07-28 13:57 | disposition home or self-care (01) ==
LOC: NCHCN 13:56
PROVIDERS: PCP Family Medicine; Visit Provider Family Medicine
DX: D50.9 Iron deficiency anemia, unspecified (principal); E03.9 Hypothyroidism, unspecified; E55.9 Vitamin D deficiency, unspecified
CPT/HCPCS: 82306; 85027; 82728; 83540; 83550; 84443

== ENCOUNTER 2023-08-24 08:23 | Day surgery (SDC) | payer OTHER, SELFPAY ==
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
--- NOTE | 2023-08-23 20:11 | W.PM.DSUDISC ---
Date of service: 08/24/23 Time of Service: 10:23 Discharge Plan Disposition Patient Disposition: Home Condition: Good Discharge Details Reason For Visit: EGD Attending Provider: Erick Lawson Primary Care Provider: Syed Reyes [place] Meds and New Rx's Prescriptions: Continued trazodone 50 mg tablet 50 mg PO HS Patient Comments: 03.19.18 PT STATES HIS PCP CHANGED HIS ZOLPIDEM TO THIS.HE loperamide [Imodium A-D] 2 mg tablet 1 mg PO DAILY metoprolol succinate 50 MG tablet extended release 24 hr 50 mg PO DAILY amlodipine 5 mg tablet 5 mg PO DAILY Metamucil 3.4 gram/5.4 gram powder 1 tbsp PO DAILY Rx Instructions: mix into at least 8 oz of water or juice before administering levothyroxine 88 mcg tablet 150 mcg PO DAILY loratadine [Allergy Relief (loratadine)] 10 mg tablet 10 mg PO DAILY PRN famotidine 40 mg tablet See Rx Instructions .ROUTE .COMPLEX Qty: 90 12RF Dose Instruction: TAKE ONE TABLET BY MOUTH AT BEDTIME Rx Instructions: TAKE ONE TABLET BY MOUTH AT BEDTIME Ofev 150 mg capsule See Rx Instructions .ROUTE .COMPLEX Qty: 60 12RF Dose Instruction: TAKE 1 CAPSULE BY MOUTH TWICE A DAY 12 HOURS APART WITH FOOD Rx Instructions: TAKE 1 CAPSULE BY MOUTH TWICE A DAY 12 HOURS APART WITH FOOD olopatadine [Patanol] 5 ML drops 1 drp ophthalmic (eye) PRN PRN fluocinonide 15 GM cream 1 applic Topical PRN PRN fluticasone propionate 16 GM spray,suspension 2 spry Inhalation DAILY Patient Comments: nasacort coenzyme Q10 [CoQ-10] 100 mg capsule 100 mg PO DAILY multivitamin with minerals Tablet 1 tab PO DAILY iron 18 mg Tablet See Rx Instructions .ROUTE .COMPLEX Rx Instructions: 18 mg orally QOD cholecalciferol (vitamin D3) [Vitamin D3] 25 mcg (1,000 unit) tablet 25 mcg PO DAILY Patient Comments: Take 1 tablet by mouth once a day lisinopril 20 mg Tablet 20 mg PO DAILY ibuprofen 400 mg Tablet 400 mg PO BID PRN atorvastatin 10 mg tablet 10 mg PO .QOD Discharge Instructions Additional Instructions: Abe, it was very nice seeing you again today, and I hope that the EGD was fairly comfortable. Generally speaking I do not see anything to worry about. However, the lining of your duodenum (which is the first part of your small intestine) looks slightly abnormal to me. Like I showed you in the pictures, the ends of the villi (which are little absorptive fingers in the lining of the tissue) appear a little more white than usual. I wonder if this represents lymphangiectasia. While many of your symptoms do not quite add up with that, there are of lymphangiectasia associated with anemia, as well as low levels of fat-soluble vitamins. And as you probably remember, I pointed out that your vitamin D level was a little bit low. Vitamin D is one of the fat-soluble vitamins. I do not think this is anything to panic about. Like we talked about before the procedure, I did multiple biopsies all different areas, and I would like to see what those biopsies show before we do anything different. When I have those results, I will be in touch with my recommendations for the next steps. 1. If tolerated, consume a soft, low fiber diet for 1-2 days. [address] Do not drive, drink alcohol, operate machinery, make critical decisions, or do activities that require coordination or balance for 24 hours. 3. You may experience a sore throat for 24 to 48 hours. You may use throat lozenges or gargle with warm salt water to relieve the discomfort. 4. Because air was put into your stomach during the procedure, you may experience some belching. 5. Go directly to the emergency room if you notice any of the following: Develop chills (warm to touch), or if you have a thermometer and your temperature is above 101 Difficulty breathing or difficultly swallowing Persistent vomiting Severe abdominal pain, other than gas cramps Severe chest pain Black, tarry stools Any bleeding ? exceeding one tablespoon 6. Call your physician if the site where your intravenous was started becomes red, swollen, painful, and warm to touch. 7. Your physician has reviewed your pre-procedure medications. Please continue to take those medications as previously ordered. You will be given specific information/education regarding any changes to your medications before leaving. Activity:: Activity as Tolerated Diet:: As Tolerated Discharge Orders Discharge Orders: Discharge Order (Routine); Ordered 08/23/23 Ordered By: Erick Lawson DS: Diagnosis Discharge Diagnosis (1) Iron deficiency anemia due to chronic blood loss: Status: Acute Asessment and Plan: Follow-up on biopsy results
--- NOTE | 2023-08-23 20:15 | W.PM.ENDDOP ---
Date of service: 08/24/23 Time of Service: : Endoscopy Report DATE OF PROCEDURE: 08/24/23 PRE-OP DIAGNOSIS: iron deficiency anemia POST-OP DIAGNOSIS: same PROCEDURE: EGD with biopsies SURGEON: Erick Lawson ANESTHESIA TYPE: General:No Airway ESTIMATED BLOOD LOSS: 10 PATHOLOGY: other (Duodenal biopsies, duodenal bulb biopsies, gastric antrum and body biopsies) COMPLICATIONS: None DISPOSITION: same day INDICATIONS: Efra is a 63 year old man with longstanding GERD and iron deficiency anemia PROCEDURE START TIME: 09:56 PROCEDURE END TIME: 10:01 FINDINGS: Prominent duodenal villi that may represent lymphangiectasia. PROCEDURE DESCRIPTION: After the initiation of anesthesia, and with the assistance of a bite block, I advanced a standard gastroscope through the mouth past the hypopharynx and into the esophagus.? Under the direct vision of the scope, I advanced down the esophagus into the stomach.? The esophagus was was totally normal down to the GE junction, which measured approximately 45 cm from the incisors. Z-line was regular, and I did not see any signs of Sims's esophagus. Narrowband imaging was used to assist with the analysis. Next, the camera was advanced down into the stomach proper, and the stomach was insufflated until the gastric rugae were obliterated. The lining of the stomach looked normal. I performed retroflexion. I did not see any obvious signs of hiatal hernia. I turned the camera back antegrade, and navigated down around the incisura angularis. The antrum and pylorus were normal, and I did not see any signs of gastritis. I advanced across the pylorus into the duodenal bulb which was easily insufflated as well. The duodenum was a little bit pale, and the tips of the file were quite prominent and white stained. Clinically, it had an appearance consistent with lymphangiectasia. I saw no signs of any duodenal ulcers. I perform random biopsies of the duodenum, as well as the duodenal bulb. These were done with cold forceps without any significant bleeding. I brought the camera back into the stomach, and perform biopsies of the gastric antrum and body as well to rule out Helicobacter pylori. He tolerated the procedure fine, at that point, I emptied the stomach, and brought the camera back out along the length of the esophagus which was examined 1 last time.
[2023-08-24 09:00] VITALS: BP 147/75; PULSE 70; RESP 16; TEMP 36.7; O2SAT 96
[2023-08-24] MEDS: Lactated Ringers 1,000 ML 80 ML IV (09:03)
[2023-08-24 09:13] VITALS: BMI 29.2
--- NOTE | 2023-08-24 09:59 | BOWEL_PTH ---
PATIENT: Efra Holt LOC: [facility] U#:[id number] AGE/SX: 63/M ROOM: RE08/24/[address]: Erick Lawson MD : 1960 BED: DIS: 08/24/2023 SPEC #: [id number] RECD: 08/24/23 12:46 STATUS: KIMBERLY RE #: [id number] BARRERA: 08/24/23 09:[address]: Erick Lawson DEPT: Surgical Specimen RECD BY: Macarena Bradshaw ENTERED: 08/24/23 12:48 SP TYPE: Bowel OTHR DR: Syed Reyes Tissues: 1 - BIOPSY BOWEL 2 - BIOPSY BOWEL 3 - STOMACH BIOPSY 4 - STOMACH BIOPSY Procedures: GROSS AND MICRO LEVEL 4 IMMUNOPEROXIDASE STAIN Comments: [id number]
[2023-08-24 10:10] VITALS: BP 123/74; PULSE 72; RESP 16; TEMP 36.3; O2SAT 96
[2023-08-24 10:43] VITALS: BP 135/77; PULSE 71; RESP 16; TEMP 36.2; O2SAT 97
--- NOTE | 2023-08-24 10:48 | W.ANESPOSTOP ---
Postoperative Evaluation Date, Time and Location Date Performed: 08/24/23 Time Performed: 10:40 Patient Location: Day Surgery Unit Vital Signs Most Recent Imported Vital Signs: Most Recent Vital Signs Temp Pulse Resp BP Pulse Ox 36.2 C L 71 16 135/77 97 08/24/23 10:43 08/24/23 10:43 08/24/23 10:43 08/24/23 10:43 08/24/23 10:43 Pain Score Most Recent Pain Score: Most Recent Pain Score Pain Level 08/24/23 10:43 Assessment Mental Status: Awake (Alert & Oriented to Patient Baseline) Airway and Respiratory Function: Patent airway with normal (patient baseline) respiratory exam Cardiovascular Function: Hemodynamically Stable Hydration Status: Adequately Hydrated Nausea & Vomiting: No Nausea or Vomiting Pain: Pt. Denies Any Pain Peripheral Nerve Block: Patient did not receive a nerve block
[2023-08-24] MEDS: IRON SUCROSE COMPLEX 200 MG in Normal Saline 100 ML 440 MG IVPB (11:10)
[2023-08-24] MEDS: Normal Saline Flush 10 ML SYR IV (11:24)
== END 2023-08-24 11:40 | disposition home or self-care (01) ==
LOC: SUR 08:24
PROVIDERS: PCP Family Medicine; Visit Provider Surgery
PROC: 0DJ68ZZ Inspection of Stomach, Via Natural or Artificial Opening Endoscopic (ICD-10-PCS; CPT 43235; principal; 2023-08-24 09:45)
DX: D50.0 Iron deficiency anemia secondary to blood loss (chronic) (principal); K21.9 Gastro-esophageal reflux disease without esophagitis; E78.1 Pure hyperglyceridemia; K29.70 Gastritis, unspecified, without bleeding
CPT/HCPCS: 43239; 88305; 96365; 88361; J1756; J2405; J2704

== ENCOUNTER 2023-08-31 03:54 | Outpatient (RCR) | payer OTHER, SELFPAY ==
[2023-08-31] MEDS: IRON SUCROSE COMPLEX 200 MG in Normal Saline 100 ML 440 MG IVPB (14:18)
[2023-08-31] MEDS: Normal Saline Flush 10 ML SYR IVP (14:19)
== END 2023-09-03 23:59 | disposition home or self-care (01) ==
LOC: INF 03:54
PROVIDERS: PCP Family Medicine; Visit Provider Surgery
DX: D64.9 Anemia, unspecified
CPT/HCPCS: 96365; J1756

== ENCOUNTER 2023-09-01 17:26 | Outpatient (REF) | payer OTHER, SELFPAY ==
[2023-09-01 18:11] LABS: ALT 35 U/L (16-63); AST 31 U/L (15-37); Albumin 3.5 g/dL (3.4-5.0); Alkaline Phosphatase 151 U/L (46-116); Anion Gap 11.1 mmol/L (3-11); BUN 19 mg/dL (7-18); Bilirubin, Total 0.4 mg/dL (0.2-1.0); CO2 25.9 mmol/L (21.0-32.0); CREATININE 1.1 mg/dL (0.70-1.30); Calcium 8.9 mg/dL (8.5-10.1); Chloride 104 mmol/L (98-107); Glucose 102 mg/dL (74-106); Potassium 4.4 mmol/L (3.5-5.1); Sodium 141 mmol/L (136-145); Total Protein 7.6 g/dL (6.4-8.2)
== END 2023-09-01 17:27 | disposition home or self-care (01) ==
LOC: NCHCN 17:26
PROVIDERS: PCP Family Medicine; Visit Provider Physician Assistant Surgical
DX: J84.112 Idiopathic pulmonary fibrosis (principal)
CPT/HCPCS: 80053

== ENCOUNTER 2023-09-07 04:42 | Outpatient (RCR) | payer OTHER, SELFPAY ==
[2023-09-07] MEDS: Normal Saline Flush 10 ML SYR IVP (14:12)
[2023-09-07] MEDS: IRON SUCROSE COMPLEX 200 MG in Normal Saline 100 ML 440 MG IVPB (14:12)
== END 2023-10-04 23:59 | disposition home or self-care (01) ==
LOC: INF 04:42
PROVIDERS: PCP Family Medicine; Visit Provider Surgery
DX: D50.9 Iron deficiency anemia, unspecified (principal)
CPT/HCPCS: 96365; J1756

== ENCOUNTER 2023-09-22 12:26 | Outpatient (REF) | payer OTHER, SELFPAY ==
[2023-09-22 15:26] LABS: HGB 12.6 g/dL (13.5-17.5); MCHC 33.2 % (32.0-36.0); MCV 100 fL (80-95); MPV 8.6 fL (8.0-11.0); Platelet Count 280 10^3/uL (130-400); RBC 3.82 10^6/uL (4.36-5.78); RDW 12.9 % (11.8-14.1); RDW-SD 46.9 fL; WBC 9.92 10^3/uL (4.4-10.8)
[2023-09-22 15:46] LABS: Iron 58 ug/dL (65-175); Total Iron Binding Capacity 232 ug/dL (250-450); Transferrin Sat 25 % (20-55)
[2023-09-22 16:33] LABS: Ferritin 383 ng/mL (26-388)
== END 2023-09-22 12:27 | disposition home or self-care (01) ==
LOC: NCHCN 12:26
PROVIDERS: PCP Family Medicine; Visit Provider Family Medicine
DX: D50.9 Iron deficiency anemia, unspecified (principal)
CPT/HCPCS: 85027; 82728; 83540; 83550

== ENCOUNTER 2023-11-08 10:14 | Inpatient (IN) | payer OTHER, SELFPAY ==
[2023-11-08] VITALS (19 sets, daily range): BP systolic 127–168; BP diastolic 60–84; PULSE 88–113; RESP 2–24; TEMP 36.7–38.8; O2SAT 82–94
--- NOTE | 2023-11-08 10:30 | DI.RAD_ITS ---
Exam(s) XR PORTABLE CHEST AP EXAM: XR PORTABLE CHEST AP CLINICAL HISTORY: cough and fever TECHNIQUE: 2D digital imaging was performed. COMPARISON: CR XR CHEST 2V PA LATERAL from 02/19/[address] CHEST WO from 05/21/2023 FINDINGS: Exam limited by under penetration at the lung bases. LUNGS: Bilateral infiltrates involving the mid through lower lung zones. No effusion visible. No p neumothorax. HEART: Normal size. AORTA: Normal diameter. BONES: Unremarkable for age. Soft tissues: Unremarkable. IMPRESSION: Bilateral pulmonary infiltrates. DATA REPOSITORY: RADIATION DOSE DELIVERED:
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
[2023-11-08] MEDS: Acetaminophen 500 MG TAB 1000 MG PO (10:50)
[2023-11-08] MEDS: Albuterol/Ipratropium 3 ML UPD VIAL UPD (10:50)
[2023-11-08] MEDS: Normal Saline 1,000 ML 1000 ML IV (10:51)
[2023-11-08] MEDS: Dexamethasone 10 MG/ML VIAL IVP (10:51)
[2023-11-08 10:55] LABS: BE (Venous) -2 mmol/L (-2-3); HCO3 (Venous) 23 mmol/L (23-28); O2 Sat (Venous) 79 %; TCO2 (Venous) 21 mmol/L (24-29); pCO2 (Venous) 35 mmHg (41-51); pH (Venous) 7.43 (7.31-7.41); pO2 (Venous) 42 mmHg
[2023-11-08 10:56] LABS: Lactate 1.7 mmol/L (0.6-1.4)
[2023-11-08 10:57] LABS: Abs Immature Grans 0.02 10^3/uL (0.0-0.06); Absolute Basophil Count 0.05 10^3/uL (0.0-0.2); Absolute Eosinophil Count 0.17 10^3/uL (0.0-0.7); Absolute Lymphocyte Count 0.92 10^3/uL (1.2-3.4); Absolute Monocyte Count 0.97 10^3/uL (0.1-0.8); Absolute Neutrophil Count 5.47 10^3/uL (1.2-6.7); Basophils % 0.7 %; Eosinophils % 2.2 %; HGB 10.7 g/dL (13.5-17.5); Immature Grans % 0.3 %; Lymphocytes % 12.1 %; MCHC 33.4 % (32.0-36.0); MCV 99 fL (80-95); MPV 8.4 fL (8.0-11.0); Monocytes % 12.8 %; Neutrophils % 71.9 %; Platelet Count 210 10^3/uL (130-400); RBC 3.24 10^6/uL (4.36-5.78); RDW 13.2 % (11.8-14.1)
[2023-11-08 11:09] LABS: INR 1.1 (0.9-1.1); PTT Activated 29.2 sec (23.6-32.8); Prothrombin Time 11.1 sec (9.1-11.1)
[2023-11-08 11:17] LABS: COVID-19 PCR Negative (Negative); Influenza A PCR Negative (Negative); Influenza B PCR Negative (Negative); RSV PCR Negative (Negative)
[2023-11-08 11:18] LABS: Source Nasopharynx
[2023-11-08 11:21] LABS: ALT 29 U/L (16-63); AST 33 U/L (15-37); Albumin 3.1 g/dL (3.4-5.0); Alkaline Phosphatase 128 U/L (46-116); Anion Gap 14.4 mmol/L (3-11); BUN 26 mg/dL (7-18); Bilirubin, Total 1.6 mg/dL (0.2-1.0); CO2 23.6 mmol/L (21.0-32.0); CREATININE 1.4 mg/dL (0.70-1.30); Calcium 8.6 mg/dL (8.5-10.1); Chloride 102 mmol/L (98-107); Estimated GFR 55.78 (mL/min/1.73m2); Glucose 148 mg/dL (74-106); Magnesium 1.9 mg/dL (1.8-2.4); Potassium 3.8 mmol/L (3.5-5.1); Sodium 140 mmol/L (136-145); TSH (W/Ref FT4) 0.59 uIU/mL (0.36-3.74); Total Protein 7.9 g/dL (6.4-8.2)
[2023-11-08 11:28] LABS: Procalcitonin 0.2 ng/mL
[2023-11-08] MEDS: cefTRIAXone 2 GM/50 ML BAG IVPB (11:40)
--- NOTE | 2023-11-08 11:43 | DI.VRAD_ITS ---
PROCEDURE INFORMATION: Exam: XR Chest Exam date and time: 11/08/2023 10:54 AM Age: 63 years old Clinical indication: Other: Cough and fever TECHNIQUE: Imaging protocol: Radiologic exam of the chest. Views: 1 view. COMPARISON: CT CHEST WO 05/21/2023 8:27 AM FINDINGS: Lungs: Increased opacity in the mid to lower lungs bilaterally. Pleural spaces: Cannot exclude pleural effusions. Heart/Mediastinum: Enlarged cardiac silhouette. Bones/joints: Grossly unremarkable. IMPRESSION: 1. Increased opacity in the mid to lower lungs bilaterally, suggesting parenchymal disease such as pneumonia or edema. Pleural effusions cannot be excluded. Follow-up as clinically warranted. 2. Enlarged cardiac silhouette. Dictated and Authenticated by: Shania Avila MD. Ordering:BELLO Sun MD
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
[2023-11-08] MEDS: AZITHROMYCIN 500 MG in Normal Saline 250 ML 250 MG IVPB (12:25)
[2023-11-08 14:21] LABS: Lactate 1.6 mmol/L (0.6-1.4)
[2023-11-08] MEDS: Albuterol 2.5 MG/3 ML INH SOLN VIAL UPD (16:07)
[2023-11-08 16:37] LABS: Bilirubin Negative (Negative); Blood Large (Negative); Clarity Clear (Clear); Glucose 100 mg/dL (Negative); Ketones Negative (Negative); Leukocyte Esterase Negative (Negative); Nitrite Negative (Negative); Specific Gravity 1.015 (1.005-1.025); pH 5.5 (5-8)
[2023-11-08 16:44] LABS: Bacteria Negative HPF (Negative); C & S Indicated? No; Crystals Negative HPF (Negative); Epithelial Cells Negative HPF (Negative); Mucus Trace (Negative); WBC 0-2 HPF (0-5)
[2023-11-08] MEDS: Normal Saline Flush 10 ML SYR IVP (19:43)
[2023-11-08] MEDS: Famotidine 20 MG TAB 40 MG PO (22:30)
[2023-11-08] MEDS: Atorvastatin 10 MG TAB PO (22:30)
[2023-11-08] MEDS: traZODone 50 MG TAB PO (22:30)
[2023-11-08] MEDS: Acetaminophen 325 MG TAB 650 MG PO (23:10)
[2023-11-09] VITALS (12 sets, daily range): BP systolic 135–162; BP diastolic 73–80; PULSE 83–106; RESP 3–20; TEMP 36.9–37.2; O2SAT 88–96
[2023-11-09] MEDS: Levothyroxine 150 MCG TAB PO (05:49)
[2023-11-09 06:21] LABS: Abs Immature Grans 0.09 10^3/uL (0.0-0.06); Absolute Basophil Count 0.03 10^3/uL (0.0-0.2); Absolute Lymphocyte Count 1.45 10^3/uL (1.2-3.4); Absolute Monocyte Count 1.14 10^3/uL (0.1-0.8); Absolute Neutrophil Count 8.76 10^3/uL (1.2-6.7); Basophils % 0.3 %; HCT 29.1 % (40.0-50.0); HGB 10.3 g/dL (13.5-17.5); Immature Grans % 0.8 %; Lymphocytes % 12.6 %; MCHC 35.4 % (32.0-36.0); MCV 96 fL (80-95); MPV 8.5 fL (8.0-11.0); Monocytes % 9.9 %; Neutrophils % 76.4 %; Platelet Count 250 10^3/uL (130-400); RBC 3.03 10^6/uL (4.36-5.78); RDW 13.2 % (11.8-14.1); RDW-SD 46.6 fL; WBC 11.47 10^3/uL (4.4-10.8)
[2023-11-09 06:39] LABS: ALT 31 U/L (16-63); AST 35 U/L (15-37); Albumin 2.8 g/dL (3.4-5.0); Alkaline Phosphatase 121 U/L (46-116); Anion Gap 12.4 mmol/L (3-11); BUN 31 mg/dL (7-18); Bilirubin, Total 0.9 mg/dL (0.2-1.0); CO2 21.6 mmol/L (21.0-32.0); CREATININE 1.3 mg/dL (0.70-1.30); Calcium 8.3 mg/dL (8.5-10.1); Chloride 105 mmol/L (98-107); Estimated GFR 60.96 (mL/min/1.73m2); Glucose 160 mg/dL (74-106); Potassium 4.2 mmol/L (3.5-5.1); Sodium 139 mmol/L (136-145); Total Protein 7.7 g/dL (6.4-8.2)
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
[2023-11-09] MEDS: Multivitamin w/Minerals TAB 1 TAB PO (08:28)
[2023-11-09] MEDS: amLODIPine 5 MG TAB PO (08:29)
[2023-11-09] MEDS: Metoprolol CR 50 MG TABCR PO (08:29)
[2023-11-09] MEDS: Cholecalciferol (Vitamin D3) 1,000 UNIT TAB 1000 UNITS PO (08:29)
[2023-11-09] MEDS: Azithromycin 250 MG TAB PO (08:29)
--- NOTE | 2023-11-09 09:05 | DI.CT_ITS ---
Exam(s) CT CHEST WO EXAM: CT CHEST WO CLINICAL HISTORY: PNA vs ILD flare TECHNIQUE: Imaging Protocol: Axial computed tomography images with coronal and sagittal reformatted images were created and reviewed CONTRAST MATERIAL: Intravenous: Omnipaque 350 Contrast volume:structured data ml. COMPARISON: CT CT CHEST WO from 05/21/2023 CR,XR XR PORTABLE CHEST AP from 11/08/2023 FINDINGS: Pulmonary parenchyma: Bilateral mainly ground-glass infiltrates involving the majority of the lower l obes, portions of the right middle lobe and inferior portions of the upper lobes and lingula. There are a few scattered areas of patchy focal consolidation. Air bronchograms present. Mild underlying fibrotic changes at the lung bases. Tracheobronchial tree: No bronchiectasis or mucous plugging. Mediastinum and [place]: No dominant adenopathy or fluid collection. Pleura: No effusion. No pneumothorax. Heart: The heart is not dilated. Mild coronary artery calcifications are seen. Aorta: Thoracic aorta non-dilated. Mild atherosclerotic changes. Upper abdomen: No acute findings.. Bones: Milddegenerative changes in the spine. Soft tissues: Unremarkable. IMPRESSION: Extensive bilateral, mainly ground-glass infiltrates involving the lower half of the lungs. RADIATION DOSE DELIVERED: 628.53mGy.cm Total DLP DATA REPOSITORY: All CT scans at this facility are submitted to the National Radiology Data Registry (NRDR) Dose Index Registry (DIR) with the [employer] (ACR). RADIATION OPTIMIZATION: All CT scans at this facility use at least one of these dose optimization te chniques: automated exposure control; mA and/or kV adjustment per patient size (includes targeted exa ms where dose is matched to clinical indication); or iterative reconstruction.
[2023-11-09] MEDS: Albuterol/Ipratropium 3 ML UPD VIAL UPD ×4 (09:12→20:20)
[2023-11-09] MEDS: Normal Saline Flush 10 ML SYR IVP ×2 (09:32→22:38)
[2023-11-09] MEDS: cefTRIAXone 2 GM/50 ML BAG IVPB (09:32)
--- NOTE | 2023-11-09 12:00 | PHA.REVIEW2 ---
Pharmacy Admission Review Admission Clinical Review Admission Pharmacy Review: Community acquired pneumonia (Acute) Hypoxic respiratory failure (Acute) Severe sepsis (Acute) Idiopathic pulmonary fibrosis (Acute) Diabetes mellitus type 2, diet-controlled (Acute) Hemoptysis (Acute) seasonal Allergy (Mild, Uncoded 11/08/23 10:21) Itching Resuscitation Status Full Code Height 5 ft 9 in Weight 87.1 kg Pharmacy Admission Review Renal Dosing Renal Dosing: BUN 31 mg/dL (7-18) H 11/09/23 06:11 Creatinine 1.3 mg/dL (0.70-1.30) 11/09/23 06:11 Medications needing adjustments: Reviewed (CrCl 61.9 mL/min) List of meds needing interventions: Current medications are okay Anticoagulation Anticoagulation: Hgb 10.3 g/dL (13.5-17.5) L 11/09/23 06:11 Hct 29.1 % (40.0-50.0) L 11/09/23 06:11 Plt Count 250 10^3/uL (130-400) 11/09/23 06:11 INR 1.1 (0.9-1.1) 11/08/23 10:45 Creatinine 1.3 mg/dL (0.70-1.30) 11/09/23 06:11 DVT Prophylaxis: Reviewed (TEDs) Relevant Labs Relevant Labs: Sodium 139 mmol/L (136-145) 11/09/23 06:11 Potassium 4.2 mmol/L (3.5-5.1) 11/09/23 06:11 Chloride 105 mmol/L (98-107) 11/09/23 06:11 Magnesium 1.9 mg/dL (1.8-2.4) 11/08/23 10:45 Electrolytes, C-Reactive P, ESR: Reviewed (Hgb 10.3) DM Control DM Control: Glucose 160 mg/dL (74-106) H 11/09/23 06:11 DM Control: Reviewed Insulin Dosing, Diabetic Medication: Diet controlled Cardiac Review BP, HR, EF%: Reviewed (BP 137/73 and HR 98, Ox 90) QTc Review QTc: Reviewed (No EKG on file) IV to PO Switch IV Medications: Reviewed (Ceftriaxone) Home Meds Home Med List reviewed: Intervened Relevent Home Meds Not ordered & why?: CoQ10, fluocinonide cream (PRN), ibuprofen (PRN) and lisinopril Reached out to provider regarding lisinopril. Provider stated that it was being held due to possible SOCO but can restart. I put in order for today. Ofev was brought in for patient, verified med and brought back up to [facility] Current Meds Current Medication Order Review: Reviewed Pharmacy Antibiotic Review Relevant Labs: WBC 11.47 10^3/uL (4.4-10.8) H 11/09/23 06:11 Procalcitonin 0.2 ng/mL 11/08/23 10:45 Temperature 37.1 C Pharmacy Antibiotic Activity: C/S review and Reviewed, no change Comments: Patient is on ceftriaxone day 2 for pneumonia and sepsis. WBC slightly increased from 7.6 to 11.47. Blood and sputum cultures pending.
[2023-11-09] MEDS: Lisinopril 20 MG TAB PO (12:24)
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
--- NOTE | 2023-11-09 13:36 | PGE_ITS ---
Date of Service Date of service: 11/09/23 Time of Service: 13:36 Assessment and Plan Assessment and plan (1) Severe sepsis: Status: Resolved Assessment and plan: hemodynamically stable. continue antibiotics for CAP Leukocytosis is likely secondary to steroids administered in the emergency department (2) Hypoxic respiratory failure: Status: Acute Assessment and plan: responding to treatment wean oxygen as able Leukocytosis likely secondary to steroids administered in the emergency department will continue to monitor (3) Community acquired pneumonia: Status: Acute Assessment and plan: continue ceftriaxone and azithromycin day 2 for now See pulmonary consultation and recommendations planned bronchoscopy for tomorrow. (4) Idiopathic pulmonary fibrosis: Status: Acute Assessment and plan: continue Ofev, suspected to be etiology of his presentation per pulmonology planned bronchoscopy for tomorrow. (5) Diabetes mellitus type 2, diet-controlled: Status: Acute Assessment and plan: diet controlled last A1C 5.8 no surveillance while hospitalized. (6) Discharge planning issues: Status: Acute Assessment and plan: Chemical DVT prophylaxis on hold secondary to hemoptysis PT consulted and recommendations for home health PT upon discharge Case management following for discharge planning Discussed with Subjective Subjective Patient reports: no new complaints, feels better, tolerating liquids well, tolerating a regular diet, shortness of breath (improved) and afebrile Interval history since last seen: Continues to have hemoptysis overnight hemodynamically stable states he is feeling better Exam Narrative Exam Narrative: Well-appearing male of stated age in no acute distress head is atraumatic eyes nonicteric noninjected cheeks flushed EOMs intact oral mucosa is slightly dry neck is supple with no JVD respirations are even and unlabored he has coarse breath sounds throughout especially in the bases there is no wheezing cardiovascular regular rate and rhythm no murmurs appreciated abdomen is round soft nontender with positive bowel sounds bilateral lower extremities with no peripheral edema skin with no rashes or lesions neurologic he is awake alert oriented no focal deficits psychiatric appropriate mood and affect Objective Last Vital Signs Temp 37.1 C 11/09/23 07:14 Pulse 95 H 11/09/23 12:12 Resp 16 11/09/23 12:00 BP 137/73 11/09/23 07:14 Pulse Ox 93 11/09/23 12:00 Laboratory Results - last 24 hr 11/08/23 11/08/23 11/09/23 14:10 16:26 06:11 WBC 11.47 H RBC 3.03 L Hgb 10.3 L Hct 29.1 L MCV 96 H MCH 34.0 H MCHC 35.4 RDW 13.2 Plt Count 250 MPV 8.5 Immature Gran % 0.8 Neutrophils % 76.4 Lymphocytes % 12.6 Monocytes % 9.9 Eosinophils % 0.0 Basophils % 0.3 Nucleated RBC % 0.0 Absolute Neutrophils 8.76 H Absolute Lymphocytes 1.45 Absolute Monocytes 1.14 H Absolute Eosinophils 0.00 Absolute Basophils 0.03 VBG Lactate 1.6 H Sodium 139 Potassium 4.2 Chloride 105 Carbon Dioxide 21.6 Anion Gap 12.4 H BUN 31 H Creatinine 1.3 Est GFR (CKD-EPI 2020) 60.96 Glucose 160 H Calcium 8.3 L Total Bilirubin 0.9 AST 35 ALT 31 Alkaline Phosphatase 121 H Total Protein 7.7 Albumin 2.8 L Urine Color Yellow Urine Clarity Clear Urine pH 5.5 Ur Specific [place] 1.015 Urine Protein 30 H Urine Ketones Negative Urine Blood Large H Urine Nitrite Negative Urine Bilirubin Negative Urine Urobilinogen 1.0 H Ur Leukocyte Esterase Negative Urine RBC 10-20 H Urine WBC 0-2 Ur Epithelial Cells Negative Urine Crystals Negative Urine Bacteria Negative Urine Mucus Trace Ur Culture Indicated? No Urine Glucose 100 H Time Spent with Patient Time Spent with Patient: 35-49 minutes Time was spent: preparing to see the patient(eg.review tests), obtaining and/or reviewing separately otained hiistory, ordering medications,tests, procedures, referring, communicating with other health foster care social worker, indepentently interpreting results and counseling the patient
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
[2023-11-09] MEDS: Famotidine 20 MG TAB 40 MG PO (22:37)
[2023-11-09] MEDS: traZODone 50 MG TAB PO (22:37)
[2023-11-10] VITALS (57 sets, daily range): BP systolic 79–158; BP diastolic 44–83; PULSE 18–102; RESP 8–96; TEMP 31–37.1; O2SAT 90–98; BMI 28.3
[2023-11-10] MEDS: Levothyroxine 150 MCG TAB PO (06:10)
[2023-11-10 06:46] LABS: HCT 27.7 % (40.0-50.0); HGB 9.9 g/dL (13.5-17.5); MCH 34.4 pg (27.0-33.0); MCHC 35.7 % (32.0-36.0); MCV 96 fL (80-95); MPV 8.3 fL (8.0-11.0); Platelet Count 260 10^3/uL (130-400); RBC 2.88 10^6/uL (4.36-5.78); RDW 13.5 % (11.8-14.1); RDW-SD 47.8 fL; WBC 14.71 10^3/uL (4.4-10.8)
[2023-11-10 07:04] LABS: Anion Gap 13.3 mmol/L (3-11); BUN 30 mg/dL (7-18); CO2 21.7 mmol/L (21.0-32.0); CREATININE 1.2 mg/dL (0.70-1.30); Calcium 8.4 mg/dL (8.5-10.1); Chloride 107 mmol/L (98-107); Estimated GFR 67.11 (mL/min/1.73m2); Glucose 148 mg/dL (74-106); Potassium 3.9 mmol/L (3.5-5.1); Sodium 142 mmol/L (136-145)
[2023-11-10 07:16] LABS: Absolute Basophil Count 0.15 10^3/uL (0.0-0.2); Absolute Eosinophil Count 0.15 10^3/uL (0.0-0.7); Absolute Lymphocyte Count 2.35 10^3/uL (1.2-3.4); Absolute Monocyte Count 1.32 10^3/uL (0.1-0.8); Absolute Neutrophil Count 10.74 10^3/uL (1.2-6.7); Bands % 1 %
[2023-11-10 07:17] LABS: Diff Comment Manual Differential; RBC Morphology Normal
--- NOTE | 2023-11-10 07:32 | PGE_ITS ---
Assessment and Plan Assessment and plan (1) Hypoxic respiratory failure: Status: Acute (2) Hemoptysis: Status: Acute (3) Idiopathic pulmonary fibrosis: Status: Acute Assessment and plan: This is a 63 yo with IPF which has been stable on OFEV since 2021. I am not convinced his current pulmonary process is a pneumonia based on his history, labs and imaging. I worry about an ILD flare. He is planned for bronchoscopy today at 1200 to rule out infection. His O2 requirements have improved on antibiotics, so there may be an underlying infection contributing to his flare. Hypoxic respiratory failure - supplemental O2 as needed - Duonebs QID - IS - bronchoscopy today - consent signed and in the chart Hemoptysis - continue to monitor - likely due to coughing from currently pulmonary process - hold chemical DVT ppx for now - bronchoscopy as above IPF - continue OFEV q12 hr with food - Immodium prn General Date Of Service Date of service: 11/10/23 Time of Service: 07:32 Reason for Consult: Concern for Pneumonia Subjective Note Note: He is doing well today but did not sleep well last night out of concern for the procedure today. He is currently only requiring 1LPM O2. Not coughing anything up today. Exam Narrative Exam Narrative: Gen: NAD, normal respiratory effort, well-nourished HENT: PERRL Chest: No respiratory distress, normal appearance of chest, bilateral lower field crackles Heart: regular rate and rhythym, no murmurs, rubs or gallops Abdomen: Non-distended, soft, non tender Extremities: No clubbing, edema, cyanosis, rashes Neuro: AAOx3 , non focal Psych: cooperative, appropriate mental affect Objective Last Vital Signs Temp 37.1 C 11/10/23 07:15 Pulse 96 H 11/10/23 07:15 Resp 18 11/10/23 07:15 BP 158/77 H 11/10/23 07:15 Pulse Ox 91 L 11/10/23 07:15 Laboratory Results - last 24 hr 11/10/23 06:31 WBC 14.71 H RBC 2.88 L Hgb 9.9 L Hct 27.7 L MCV 96 H MCH 34.4 H MCHC 35.7 RDW 13.5 Plt Count 260 MPV 8.3 Immature Gran % See Differential Neutrophils % 72.0 Band Neutrophils % 1 Lymphocytes % 16.0 Monocytes % 9.0 Eosinophils % 1.0 Basophils % 1.0 Nucleated RBC % 0.0 Absolute Neutrophils 10.74 H Absolute Lymphocytes 2.35 Absolute Monocytes 1.32 H Absolute Eosinophils 0.15 Absolute Basophils 0.15 RBC Morphology Normal Sodium 142 Potassium 3.9 Chloride 107 Carbon Dioxide 21.7 Anion Gap 13.3 H BUN 30 H Creatinine 1.2 Est GFR (CKD-EPI 2020) 67.11 Glucose 148 H Calcium 8.4 L Results Medications Medications: Active Medications Generic Name Dose Route Start Last Admin Trade Name Freq PRN Reason Stop Dose Admin Acetaminophen 650 mg 11/08/23 23:00 11/08/23 23:10 Acetaminophen 325 Mg Tab PO 650 mg Q4H PRN PRN Administration Albuterol Sulfate 2.5 mg 11/08/23 13:04 11/08/23 16:07 Albuterol 2.5 Mg/3 Ml Inh Soln Vial UPD 2.5 mg Q2H PRN PRN Administration Albuterol/Ipratropium 3 ml 11/09/23 08:30 11/09/23 20:20 Albuterol/Ipratropium 3 Ml Upd Vial UPD 3 ml QID ARIEL Administration Amlodipine Besylate 5 mg 11/09/23 08:30 11/09/23 08:29 Amlodipine 5 Mg Tab PO 5 mg DAILY ARIEL Administration Atorvastatin Calcium 10 mg 11/08/23 22:00 11/08/23 22:30 Atorvastatin 10 Mg Tab PO 10 mg Q48H ARIEL Administration Azithromycin 250 mg 11/09/23 08:30 11/09/23 08:29 Azithromycin 250 Mg Tab PO 11/12/23 08:31 250 mg DAILY ARIEL Administration Cholecalciferol 1,000 units 11/09/23 08:30 11/09/23 08:29 Cholecalciferol (Vitamin D3) 1,000 Unit Tab PO 1,000 units DAILY ARIEL Administration Famotidine 40 mg 11/08/23 22:00 11/09/23 22:37 Famotidine 20 Mg Tab PO 40 mg DAILY@2200 ARIEL Administration Fluticasone Propionate 0 gm 11/09/23 08:30 11/09/23 08:35 Fluticasone Nasal Watson 16 Gm Btl NS Not Given DAILY ARIEL Ceftriaxone Sodium/Dextrose 2 gm in 50 mls @ 100 mls/hr 11/09/23 08:30 11/09/23 10:26 Rocephin IVPB 11/14/23 08:29 Infused DAILY [facility] Infusion IV Miscellaneous Supplies 1 each 11/08/23 10:30 Iv Access IV DIRECTED ARIEL Iron/Minerals/Multivitamins 1 tab 11/09/23 08:30 11/09/23 08:28 Multivitamin W/Minerals Tab PO 1 tab DAILY ARIEL Administration Levothyroxine Sodium 150 mcg 11/09/23 06:00 11/10/23 06:10 Levothyroxine 150 Mcg Tab PO 150 mcg DAILY@0600 ARIEL Administration Lisinopril 20 mg 11/09/23 12:00 11/09/23 12:24 Lisinopril 20 Mg Tab PO 20 mg DAILY ARIEL Administration Loperamide HCl 2 mg 11/09/23 08:30 Loperamide 2 Mg Cap PO DAILY PRN PRN Loratadine 10 mg 11/08/23 13:04 Loratidine 10 Mg Tab PO DAILY PRN PRN Metoprolol Succinate 50 mg 11/09/23 08:30 11/09/23 08:29 Metoprolol Cr 50 Mg Tabcr PO 50 mg DAILY ARIEL Administration Olopatadine HCl 0 ml 11/08/23 13:04 Olopatadine 0.1% Ophth Kareen 5 Ml Btl OP BID PRN PRN Pt's Own Nintedanib 1 each 11/08/23 20:00 11/09/23 22:37 [Ofev] 150 Mg PO 1 each Capsule Q12H ARIEL Administration Psyllium Hydrophilic Mucilloid 1 each 11/09/23 20:00 11/09/23 22:38 Psyllium Pkt PO Not Given QPM ARIEL Sodium Chloride 0 ml 11/08/23 20:00 11/09/23 22:38 Normal Saline Flush 10 Ml Syr IVP 10 ml BID ARIEL Administration Sodium Chloride 0 ml 11/08/23 10:26 Normal Saline 10 Ml Vial IJ DIRECTED PRN Trazodone HCl 50 mg 11/08/23 22:00 11/09/23 22:37 Trazodone 50 Mg Tab PO 50 mg DAILY@2200 ARIEL Administration Allergies seasonal Allergy (Mild, Uncoded 11/08/23 10:21) Itching Labs 11/10/23 06:31 11/10/23 06:31 Labs: 11/08/23 11:40 Blood Blood Culture - Preliminary NO GROWTH 24 HOURS 11/08/23 11:00 Blood Blood Culture - Preliminary NO GROWTH 24 HOURS 11/09/23 09:36 Sputum Sputum Culture - Pending 11/09/23 09:36 Sputum Gram Stain - Final Laboratory Tests Range/Units 11/08/23 11/08/23 11/08/23 10:26 10:30 10:45 WBC (4.4-10.8) 10^3/uL 7.60 RBC (4.36-5.78) 10^6/uL 3.24 L Hgb (13.5-17.5) g/dL 10.7 L Hct (40.0-50.0) % 32.0 L MCV (80-95) fL 99 H MCH (27.0-33.0) pg 33.0 MCHC (32.0-36.0) % 33.4 RDW (11.8-14.1) % 13.2 Plt Count (130-400) 10^3/uL 210 MPV (8.0-11.0) fL 8.4 Immature Gran % % 0.3 Neutrophils % % 71.9 Band Neutrophils % % Lymphocytes % % 12.1 Monocytes % % 12.8 Eosinophils % % 2.2 Basophils % % 0.7 Nucleated RBC % (0.0-0.3) % 0.0 Absolute Neutrophils (1.2-6.7) 10^3/uL 5.47 Absolute Lymphocytes (1.2-3.4) 10^3/uL 0.92 L Absolute Monocytes (0.1-0.8) 10^3/uL 0.97 H Absolute Eosinophils (0.0-0.7) 10^3/uL 0.17 Absolute Basophils (0.0-0.2) 10^3/uL 0.05 RBC Morphology PT (9.1-11.1) sec 11.1 INR (0.9-1.1) 1.1 APTT (23.6-32.8) sec 29.2 VBG pH (7.31-7.41) 7.43 H VBG pCO2 (41-51) mmHg 35 L VBG pO2 mmHg 42 VBG HCO3 (23-28) mmol/L 23 VBG Total CO2 (24-29) mmol/L 21 L VBG O2 Saturation % 79 VBG Base Excess (-2-3) mmol/L -2 VBG Lactate (0.6-1.4) mmol/L 1.7 H Sodium Cancelled 140 Potassium Cancelled 3.8 Chloride Cancelled 102 Carbon Dioxide Cancelled 23.6 Anion Gap Cancelled 14.4 H BUN Cancelled 26 H Creatinine Cancelled 1.4 H Est GFR (CKD-EPI 2020) Cancelled 55.78 Glucose Cancelled 148 H Calcium Cancelled 8.6 Magnesium (1.8-2.4) mg/dL 1.9 Total Bilirubin Cancelled 1.6 H AST Cancelled 33 ALT Cancelled 29 Alkaline Phosphatase Cancelled 128 H Total Protein Cancelled 7.9 Albumin Cancelled 3.1 L Procalcitonin ng/mL 0.2 TSH (0.36-3.74) uIU/mL 0.59 Urine Color (Yellow) Urine Clarity (Clear) Urine pH (5-8) Ur Specific [place] (1.005-1.025) Urine Protein (Neg-Trace) mg/dL Urine Ketones (Negative) mg/dL Urine Blood (Negative) Urine Nitrite (Negative) Urine Bilirubin (Negative) Urine Urobilinogen (Up to 0.2) mg/dL Ur Leukocyte Esterase (Negative) Urine RBC (0-2) HPF Urine WBC (0-5) HPF Ur Epithelial Cells (Negative) HPF Urine Crystals (Negative) HPF Urine Bacteria (Negative) HPF Urine Mucus (Negative) Ur Culture Indicated? Urine Glucose (Negative) mg/dL COVID-19 Source Nasopharynx SARS-CoV-2 (PCR) (Negative) Negative Influenza Type A (PCR) (Negative) Negative Influenza Type B (PCR) (Negative) Negative RSV (PCR) (Negative) Negative Range/Units 11/08/23 11/08/23 11/09/23 14:10 16:26 06:11 WBC (4.4-10.8) 10^3/uL 11.47 H RBC (4.36-5.78) 10^6/uL 3.03 L Hgb (13.5-17.5) g/dL 10.3 L Hct (40.0-50.0) % 29.1 L MCV (80-95) fL 96 H MCH (27.0-33.0) pg 34.0 H MCHC (32.0-36.0) % 35.4 RDW (11.8-14.1) % 13.2 Plt Count (130-400) 10^3/uL 250 MPV (8.0-11.0) fL 8.5 Immature Gran % % 0.8 Neutrophils % % 76.4 Band Neutrophils % % Lymphocytes % % 12.6 Monocytes % % 9.9 Eosinophils % % 0.0 Basophils % % 0.3 Nucleated RBC % (0.0-0.3) % 0.0 Absolute Neutrophils (1.2-6.7) 10^3/uL 8.76 H Absolute Lymphocytes (1.2-3.4) 10^3/uL 1.45 Absolute Monocytes (0.1-0.8) 10^3/uL 1.14 H Absolute Eosinophils (0.0-0.7) 10^3/uL 0.00 Absolute Basophils (0.0-0.2) 10^3/uL 0.03 RBC Morphology PT (9.1-11.1) sec INR (0.9-1.1) APTT (23.6-32.8) sec VBG pH (7.31-7.41) VBG pCO2 (41-51) mmHg VBG pO2 mmHg VBG HCO3 (23-28) mmol/L VBG Total CO2 (24-29) mmol/L VBG O2 Saturation % VBG Base Excess (-2-3) mmol/L VBG Lactate (0.6-1.4) mmol/L 1.6 H Sodium 139 Potassium 4.2 Chloride 105 Carbon Dioxide 21.6 Anion Gap 12.4 H BUN 31 H Creatinine 1.3 Est GFR (CKD-EPI 2020) 60.96 Glucose 160 H Calcium 8.3 L Magnesium (1.8-2.4) mg/dL Total Bilirubin 0.9 AST 35 ALT 31 Alkaline Phosphatase 121 H Total Protein 7.7 Albumin 2.8 L Procalcitonin ng/mL TSH (0.36-3.74) uIU/mL Urine Color (Yellow) Yellow Urine Clarity (Clear) Clear Urine pH (5-8) 5.5 Ur Specific [place] (1.005-1.025) 1.015 Urine Protein (Neg-Trace) mg/dL 30 H Urine Ketones (Negative) mg/dL Negative Urine Blood (Negative) Large H Urine Nitrite (Negative) Negative Urine Bilirubin (Negative) Negative Urine Urobilinogen (Up to 0.2) mg/dL 1.0 H Ur Leukocyte Esterase (Negative) Negative Urine RBC (0-2) HPF 10-20 H Urine WBC (0-5) HPF 0-2 Ur Epithelial Cells (Negative) HPF Negative Urine Crystals (Negative) HPF Negative Urine Bacteria (Negative) HPF Negative Urine Mucus (Negative) Trace Ur Culture Indicated? No Urine Glucose (Negative) mg/dL 100 H COVID-19 Source SARS-CoV-2 (PCR) (Negative) Influenza Type A (PCR) (Negative) Influenza Type B (PCR) (Negative) RSV (PCR) (Negative) Range/Units 11/10/23 06:31 WBC (4.4-10.8) 10^3/uL 14.71 H RBC (4.36-5.78) 10^6/uL 2.88 L Hgb (13.5-17.5) g/dL 9.9 L Hct (40.0-50.0) % 27.7 L MCV (80-95) fL 96 H MCH (27.0-33.0) pg 34.4 H MCHC (32.0-36.0) % 35.7 RDW (11.8-14.1) % 13.5 Plt Count (130-400) 10^3/uL 260 MPV (8.0-11.0) fL 8.3 Immature Gran % % See Differential Neutrophils % % 72.0 Band Neutrophils % % 1 Lymphocytes % % 16.0 Monocytes % % 9.0 Eosinophils % % 1.0 Basophils % % 1.0 Nucleated RBC % (0.0-0.3) % 0.0 Absolute Neutrophils (1.2-6.7) 10^3/uL 10.74 H Absolute Lymphocytes (1.2-3.4) 10^3/uL 2.35 Absolute Monocytes (0.1-0.8) 10^3/uL 1.32 H Absolute Eosinophils (0.0-0.7) 10^3/uL 0.15 Absolute Basophils (0.0-0.2) 10^3/uL 0.15 RBC Morphology Normal PT (9.1-11.1) sec INR (0.9-1.1) APTT (23.6-32.8) sec VBG pH (7.31-7.41) VBG pCO2 (41-51) mmHg VBG pO2 mmHg VBG HCO3 (23-28) mmol/L VBG Total CO2 (24-29) mmol/L VBG O2 Saturation % VBG Base Excess (-2-3) mmol/L VBG Lactate (0.6-1.4) mmol/L Sodium 142 Potassium 3.9 Chloride 107 Carbon Dioxide 21.7 Anion Gap 13.3 H BUN 30 H Creatinine 1.2 Est GFR (CKD-EPI 2020) 67.11 Glucose 148 H Calcium 8.4 L Magnesium (1.8-2.4) mg/dL Total Bilirubin AST ALT Alkaline Phosphatase Total Protein Albumin Procalcitonin ng/mL TSH (0.36-3.74) uIU/mL Urine Color (Yellow) Urine Clarity (Clear) Urine pH (5-8) Ur Specific [place] (1.005-1.025) Urine Protein (Neg-Trace) mg/dL Urine Ketones (Negative) mg/dL Urine Blood (Negative) Urine Nitrite (Negative) Urine Bilirubin (Negative) Urine Urobilinogen (Up to 0.2) mg/dL Ur Leukocyte Esterase (Negative) Urine RBC (0-2) HPF Urine WBC (0-5) HPF Ur Epithelial Cells (Negative) HPF Urine Crystals (Negative) HPF Urine Bacteria (Negative) HPF Urine Mucus (Negative) Ur Culture Indicated? Urine Glucose (Negative) mg/dL COVID-19 Source SARS-CoV-2 (PCR) (Negative) Influenza Type A (PCR) (Negative) Influenza Type B (PCR) (Negative) RSV (PCR) (Negative)
[2023-11-10] MEDS: Albuterol/Ipratropium 3 ML UPD VIAL UPD ×3 (07:43→20:10)
[2023-11-10] MEDS: Azithromycin 250 MG TAB PO (08:55)
[2023-11-10] MEDS: cefTRIAXone 2 GM/50 ML BAG IVPB (08:55)
[2023-11-10] MEDS: amLODIPine 5 MG TAB PO ×2 (08:55)
[2023-11-10] MEDS: Metoprolol CR 50 MG TABCR PO (08:56)
[2023-11-10] MEDS: Multivitamin w/Minerals TAB 1 TAB PO (08:56)
[2023-11-10] MEDS: Cholecalciferol (Vitamin D3) 1,000 UNIT TAB 1000 UNITS PO (08:56)
[2023-11-10] MEDS: Normal Saline Flush 10 ML SYR IVP ×2 (08:57→23:26)
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
--- NOTE | 2023-11-10 10:50 | PDOC.CMPRO ---
Date of service: 11/10/23 Time of Service: 10:50 Care Management Progress Note Progress Note Text Progress Note Text: S/O: Efra went to the OR today for a bronchoscopy. Per report, as a result of the procedure, there is concern for a systemic process such as vasculitis; Efra will have a work up for this, and Dr. Enciso recommended a rheumatology consult. He was transferred to the ICU after the procedure, and is on high flow nasal canula, with a plan to wean this down, as tolerated. Efra was resting when CM attempted to meet with him, and he did not easily awaken. He is being closely monitored at ICU level of care. CM will continue to follow. A: Efra is a 63 year old male admitted to [facility] on 11/08/23 with severe sepsis, CAP. P: Anticipate Efra will return home once medically cleared. His will drive him home via private vehicle when ready. He will follow up with his PCP and discharge plan of care. CM will continue to follow. SDOH(Care Management) Screening Will the Patient Participate in the Screening?: Yes Do you worry about having a steady place to live?: no Problems where you live: no known problems In the past 12 months, have you had to go without electric, gas, oil or water in your home?: no Have you or anyone in your house had to go without enough food to eat?: no Has lack of transportation kept you from medical appointments or from doing things needed for daily living?: no Has anyone in your support network made you feel unsafe for any reason?: no
[2023-11-10] MEDS: Lactated Ringers 1,000 ML 30 ML IV (12:06)
--- NOTE | 2023-11-10 12:24 | PAPNONF_PTH ---
PATIENT: Efra Holt LOC: [id number]#:[id number] AGE/SX: 63/M ROOM: RE11/08/[address]: Nico Cee MD : [id number] BED: A DIS: 11/16/2023 SPEC #: [id number] RECD: 11/10/23 13:03 STATUS: KIMBERLY REQ #: [id number] BARRERA: 11/10/23 12:[address]: Nico Cee DEPT[facility] Cytology RECD BY: Macarena Bradshaw ENTERED: 11/10/23 13:04 SP TYPE: PAPNONF OTHR DR: MD Eric Barry John InPatient Dan Wyand Tissues: 1 - BODY FLUID CYTO(NOT S/U/N/EM)[facility] Procedures: BODY FLUID CYTO(NOT SPU/UR/NIP/ENDOM)[facility] SPECIAL STAIN 1 Comments: (TV = 20 ml, SENT FRESH) (REFRIGERATED)
[2023-11-10] MEDS: Lidocaine 1% Pres-Free 5 ML VIAL (12:25)
[2023-11-10] MEDS: Norepinephrine in D5W 8 MG/250 ML BAG 7.5 MG IV (12:50)
[2023-11-10] MEDS: Droperidol 5 MG/2 ML VIAL 0.625 MG IVP (13:16)
--- NOTE | 2023-11-10 13:38 | PT.INNT ---
PT Notes Visit Reasons: Severe Sepsis, Community Acquired Pneumonia Pt not available, had to move from [facility] to ICU.
--- NOTE | 2023-11-10 13:48 | W.PM.OP ---
Date of service: 11/10/23 Time of Service: 12:00 Operative Note Operative Note PRE-OP DIAGNOSIS: Pneumonia vs ILD flare POST-OP DIAGNOSIS: other (Diffuse alveolar hemorrhage) Refer to Anesthesia Record Procedure Description: Bronchoscopy Procedure performed: Flexible bronchoscopy with BAL Sedation plan: General anesthesia Informed consent was obtained after the risks and benefits or the procedure were discussed. The patient was sedated and intubated by anesthesia. A proper and complete OR compliant time out was performed. The therapeutic 6.2mm Olympus bronchoscope was inserted through the endotracheal tube. The bronchoscope was inserted into the airways, were 3cc in total of 1% topical lidocaine was used the anesthetize the airways. The trachea was midline and without lesion or injury. The mucosa appeared normal and there were no signs of tracheomalacia. The sapphire was sharp. All bronchial subsegments were visualized within each lobe and showed some blood mixed with sputum. No injury or lesions seen. A bronchoalveolar lavage was performed in the lingula. A total of 180cc of saline was administered with a return of 80cc. The fluid was progressively more bloody with subsequent aliquots (as seen below). After the BAL the lingula did have more blood that was moving with respirations. I used approximately 15cc of cold saline to achieve hemostasis. The site was observed for a few minutes and no subsequent bleeding was observed. The bronchoscope was then removed and the case terminated. The patient was taken to PACU in stable condition, however was requiring HFNC to maintain saturations. The patient will be moved from PACU to the ICU for closer observation. Case discussed with hospitalist team. Samples collected:Lingula BAL and bronchial washings Testing ordered:Cell diffs, bacterial, fungal, AFB cultures, cytopathology, silver stain, expanded respiratory viral panel Complications: Need for high post operative O2 support Kisha Valdes MD Pulmonary & Critical Care Medicine
--- NOTE | 2023-11-10 13:57 | W.ANESPOSTOP ---
Postoperative Evaluation Date, Time and Location Date Performed: 11/10/23 Time Performed: 13:40 Patient Location: PACU Vital Signs Most Recent Imported Vital Signs: Most Recent Vital Signs Temp Pulse Resp BP Pulse Ox 36.8 C 78 24 104/54 L 96 11/10/23 13:15 11/10/23 13:15 11/10/23 13:15 11/10/23 13:15 11/10/23 13:15 Pain Score Most Recent Pain Score: Most Recent Pain Score Pain Level [Generalized] 0 11/09/23 08:35 Pain Level 0 11/10/23 13:15 Assessment Mental Status: Awake (Alert & Oriented to Patient Baseline) Airway and Respiratory Function: Patent airway with normal (patient baseline) respiratory exam Cardiovascular Function: Hemodynamically Stable (low dose NE. ) Hydration Status: Adequately Hydrated Nausea & Vomiting: Active Nausea or Vomiting Present (drop ordered) Nausea and Vomiting Management: Nausea and vomiting active, being managed as an inpatient Pain: Pt. Denies Any Pain Peripheral Nerve Block: Patient did not receive a nerve block
--- NOTE | 2023-11-10 15:25 | CE_ITS ---
Date of service: 11/10/23 Time of Service: 14:30 Event Note: Patient returned from bronchoscsopy on levophed for hypotension and on high flow nasal cannuala. Per Dr. Quiroz no significant complications from procedure, low BP likely related to anesthesia. Bronchoscopy did show copious blood c/w diffuse aveolar hemorrhage. She is ordering additional blood tests for inflammatory conditions that could cause this. She started high dose steroids. On exam, he is comfortable and speaking in full sentences with HFNC with O2 sat 94% and MAP in 70s. A&O, no distress. CV: RRR, no M/G/R. Lungs: Rales 1/[address] up gege lung parisi, wetter than his typical basliar rales, superior parisi clear, no wheeze. No joint redness/swelling. No rash, chronic vitiligo. Expect him to taper off norepi drip and titrate down to nasal cannula. We will need to touch base with rheumatology regarding additional recom mendations and follow up plan. Time Spent with Patient Time spent in critical care(minutes): 40 Time Spent Included: Coordination of care, Chart review, Documenting critically ill care, Time at immediate bedside and Discussing critically ill care with other medical staff
--- NOTE | 2023-11-10 17:27 | CHAPLAIN ---
Efra was sitting up in the chair, visiting with his Meagan when I visited. They are both very pleasant and easily engaged in conversation. Efra said he is feeling better. He was moved from Med/Surg to ICU this afternoon for closer monitoring after a procedure today. I will continue to visit.
--- NOTE | 2023-11-10 17:32 | CHAPLAIN ---
Fr. Monson from [facility] visited Efra today.
[2023-11-10] MEDS: methylPREDNISolone SUCC 500 MG in Normal Saline 100 ML 200 MG IVPB (20:00)
--- NOTE | 2023-11-10 20:59 | NUR.NOTE ---
Nursing Note: 2100 Patient has just had 2 small bloody sputum at this time. At approximately 1815 patient also had a small bloody sputum.
[2023-11-10] MEDS: Famotidine 20 MG TAB 40 MG PO (23:24)
[2023-11-10] MEDS: traZODone 50 MG TAB PO (23:24)
[2023-11-10] MEDS: Atorvastatin 10 MG TAB PO (23:24)
[2023-11-11] VITALS (111 sets, daily range): BP systolic 99–150; BP diastolic 52–83; PULSE 61–127; RESP 3–35; TEMP 31–37; O2SAT 82–99
[2023-11-11] MEDS: Levothyroxine 150 MCG TAB PO (05:52)
[2023-11-11 07:04] LABS: Abs Immature Grans 0.14 10^3/uL (0.0-0.06); Absolute Basophil Count 0.01 10^3/uL (0.0-0.2); Absolute Eosinophil Count 0.01 10^3/uL (0.0-0.7); Absolute Lymphocyte Count 1.04 10^3/uL (1.2-3.4); Absolute Monocyte Count 0.28 10^3/uL (0.1-0.8); Absolute Neutrophil Count 8.25 10^3/uL (1.2-6.7); Basophils % 0.1 %; Eosinophils % 0.1 %; HGB 9.2 g/dL (13.5-17.5); Immature Grans % 1.4 %; Lymphocytes % 10.7 %; MCH 32.7 pg (27.0-33.0); MCHC 32.9 % (32.0-36.0); MCV 100 fL (80-95); MPV 8.7 fL (8.0-11.0); Monocytes % 2.9 %; Neutrophils % 84.8 %; Platelet Count 253 10^3/uL (130-400); RBC 2.81 10^6/uL (4.36-5.78); RDW 13.5 % (11.8-14.1); RDW-SD 49.5 fL; WBC 9.73 10^3/uL (4.4-10.8)
[2023-11-11 07:19] LABS: Anion Gap 12.5 mmol/L (3-11); BUN 32 mg/dL (7-18); CO2 21.5 mmol/L (21.0-32.0); CREATININE 1.3 mg/dL (0.70-1.30); Calcium 7.8 mg/dL (8.5-10.1); Chloride 106 mmol/L (98-107); Estimated GFR 60.96 (mL/min/1.73m2); Glucose 244 mg/dL (74-106); Potassium 4.2 mmol/L (3.5-5.1); Sodium 140 mmol/L (136-145)
[2023-11-11] MEDS: Albuterol/Ipratropium 3 ML UPD VIAL UPD ×4 (08:03→20:10)
--- NOTE | 2023-11-11 08:55 | PDOC.CMPRO ---
Date of service: 11/11/23 Time of Service: 08:56 Care Management Progress Note Progress Note Text Progress Note Text: S/O: Efra was sitting up chatting with his visitors when CM met with him. He stated that he feels much better physically, but not in terms of his diagnosis. Efra had a bronchoscopy yesterday which showed : copious blood c/w diffuse aveolar hemorrhage. After the procedure Efra was hypotensive and and was moved to the ICU and is now receiving oxygen via high flow nasal cannula at 40L/min. Efra informed CM that his goal is to return home, without oxygen, and have his health be back to baseline. The provider plans to contact rheumatology regarding the findings as there are some inflammatory conditions that could cause this. A: Efra is a 63 year old male admitted to [facility] on 11/08/23 with severe sepsis, CAP. P: Anticipate Efra will return home once medically cleared. His will drive him home via private vehicle when ready. He will follow up with his PCP and discharge plan of care. CM will continue to follow. SDOH(Care Management) Screening Will the Patient Participate in the Screening?: Yes Do you worry about having a steady place to live?: no Problems where you live: no known problems In the past 12 months, have you had to go without electric, gas, oil or water in your home?: no Have you or anyone in your house had to go without enough food to eat?: no Has lack of transportation kept you from medical appointments or from doing things needed for daily living?: no Has anyone in your support network made you feel unsafe for any reason?: no
[2023-11-11] MEDS: Insulin Aspart 300 UNITS/3 ML PEN SC ×3 (09:00→17:13)
[2023-11-11] MEDS: Cholecalciferol (Vitamin D3) 1,000 UNIT TAB 1000 UNITS PO (09:01)
[2023-11-11] MEDS: Azithromycin 250 MG TAB PO (09:01)
[2023-11-11] MEDS: Multivitamin w/Minerals TAB 1 TAB PO (09:01)
[2023-11-11] MEDS: methylPREDNISolone SUCC 500 MG in Normal Saline 100 ML 200 MG IVPB ×2 (09:03→20:40)
[2023-11-11] MEDS: Normal Saline Flush 10 ML SYR IVP ×3 (09:03→20:44)
[2023-11-11] MEDS: cefTRIAXone 2 GM/50 ML BAG IVPB (09:06)
[2023-11-11] MEDS: Fluticasone NASAL SPRAY 16 GM BTL NS (09:52)
[2023-11-11] MEDS: Furosemide 20 MG/2 ML VIAL IVP (09:53)
--- NOTE | 2023-11-11 10:00 | W.PM.PROGNOT ---
Date of Service Date of service: 11/11/23 Time of Service: 10:00 Assessment and Plan Assessment and plan (1) Diffuse pulmonary alveolar hemorrhage: Status: Acute Assessment and plan: This is new and unexpected finding on bronchoscopy. Case reviewed with Dr. Quiroz. This does suggest an inflammatory/connective tissue disease etiololgy to his lung disease rather than strait forward IPF. CT disease labs sent along with infection assays from bronchial washings. He is tolerating high dose steroids methylprednisolone. Plan to touch base with [facility] [place]ology to help plan work up and follow up. (2) Severe sepsis: Status: Resolved Assessment and plan: hemodynamically stable after initial resuscitation. On cetriaxone and azithromycin to cover pneumonia. Was briefly on norepi post operatively, stable overnight off this. Still holding BP medication amlodipine and lisinopril. (3) Hypoxic respiratory failure: Status: Acute Assessment and plan: Increased oxygen need since bronchoscopy. Still on He did get fluids due to hypotension a/w his anesthesia. Will try furosemide x 1 this morning as his BP has been stable, might help oxygenation He is improving with IS Getting bronchodilators for bronchospasm. (4) Community acquired pneumonia: Status: Acute Assessment and plan: continue ceftriaxone and azithromycin day 3, bronchial washing (5) Idiopathic pulmonary fibrosis: Status: Acute Assessment and plan: Holding Ofev given hemorrhage as above. Diagnosis evolving as above. (6) Diabetes mellitus type 2, diet-controlled: Status: Acute Assessment and plan: was diet controlled with last A1C 5.8, but sugar >200 this morning on steroids. Will cover with insulin short term. (7) Discharge planning issues: Status: Acute Assessment and plan: Chemical DVT prophylaxis on hold secondary to hemoptysis PT consulted and recommendations for home health PT upon discharge Case management following for discharge planning, will need rheum and pulmonary f/u as above. He is anxoius about time off work. (8) Anemia: Status: Chronic Assessment and plan: Previous mild anemia felt relate to blood loss, negative work up. Iron studies in September c/w anemia chronic disease. Anemia worse now, more macrocytic. Lung hemorrhage could be contributing but likely more related to his inflammatory condition. Get b12/folate with labs to rule these out. Subjective Subjective Patient reports: no new complaints and voiding w/o difficulty; denies diarrhea, vomiting or fever Interval history since last seen: Efra still feels short of breath when moving around, but feels like he can breath deeper today. Using I.S. Still coughing up blood tinged sputum, more after nebulizer. He felt hungry for the first time in a while after steroids and ate some, he did sleep for a few hours last night. Exam Narrative Exam Narrative: Well-appearing male, sitting up in bed, NAD, A&O x 3. Head is atraumatic eyes nonicteric noninjected, MMM, neck is supple with no JVD. respirations are even and unlabored at rest. Has bilateral crackles 1/3 up bases (less wet sounding than yesterday evening), no wheezing. Cardiovascular regular rate and rhythm no murmurs appreciated. Abdomen is round soft nontender with positive bowel sounds bilateral lower extremities with no peripheral edema skin with no rashes or lesions. No joint swelling. Objective Last Vital Signs Temp 36.3 C L 11/11/23 07:39 Pulse 96 H 11/11/23 08:04 Resp 20 11/11/23 08:04 BP 123/67 11/11/23 07:39 Pulse Ox 95 11/11/23 08:04 Laboratory Results - last 24 hr 11/11/23 05:30 WBC 9.73 RBC 2.81 L Hgb 9.2 L Hct 28.0 L MCV 100 H D MCH 32.7 MCHC 32.9 D RDW 13.5 Plt Count 253 MPV 8.7 Immature Gran % 1.4 Neutrophils % 84.8 Lymphocytes % 10.7 Monocytes % 2.9 Eosinophils % 0.1 Basophils % 0.1 Nucleated RBC % 0.0 Absolute Neutrophils 8.25 H Absolute Lymphocytes 1.04 L Absolute Monocytes 0.28 Absolute Eosinophils 0.01 Absolute Basophils 0.01 Sodium 140 Potassium 4.2 Chloride 106 Carbon Dioxide 21.5 Anion Gap 12.5 H BUN 32 H Creatinine 1.3 Est GFR (CKD-EPI 2020) 60.96 Glucose 244 H Calcium 7.8 L Time Spent with Patient Time Spent with Patient: >50 minutes Time was spent: preparing to see the patient(eg.review tests), obtaining and/or reviewing separately otained hiistory, ordering medications,tests, procedures, referring, communicating with other health medicare contact specialist, indepentently interpreting results, counseling the patient and care coordination
[2023-11-11 11:30] LABS: Eosinophils Fluid Relative 4 %; Lymphocytes Fluid Relative 3 %; Mono/Macrophage Fluid Relative 9 %; Neutrophils Fluid Relative 84 %
--- NOTE | 2023-11-11 16:52 | CHAPLAIN ---
Efra was resting in bed when I visited late this afternoon, but he said he'd been up in the chair and moving around most of the day. He believes the steroids are kicking in and that is helping with breathing. He was able to get about four hours of sleep in one stretch last night, and he said that was good from him. Efra asked for prayers. Fr. Monson visited him yesterday. I will continue to visit. Efra seems to be well supported by his .
[2023-11-11] MEDS: Psyllium PKT 1 EACH PO (20:40)
[2023-11-11] MEDS: Famotidine 20 MG TAB 40 MG PO (20:41)
[2023-11-11] MEDS: Insulin Glargine 300 UNITS/3 ML PEN 18 UNITS SC (20:41)
[2023-11-11] MEDS: traZODone 50 MG TAB PO (23:01)
[2023-11-12] VITALS (41 sets, daily range): BP systolic 154–172; BP diastolic 77–87; PULSE 73–117; RESP 3–36; TEMP 31–37.1; O2SAT 86–98
[2023-11-12] MEDS: Levothyroxine 150 MCG TAB PO (06:00)
[2023-11-12] MEDS: Insulin Aspart 300 UNITS/3 ML PEN SC ×3 (08:15→16:46)
[2023-11-12] MEDS: Albuterol/Ipratropium 3 ML UPD VIAL UPD ×4 (08:30→20:14)
[2023-11-12 08:46] LABS: Gram Smear Result Neutrophils Present
[2023-11-12] MEDS: Fluticasone NASAL SPRAY 16 GM BTL NS (09:30)
[2023-11-12] MEDS: Azithromycin 250 MG TAB PO (09:30)
[2023-11-12] MEDS: cefTRIAXone 2 GM/50 ML BAG IVPB (09:30)
[2023-11-12] MEDS: Cholecalciferol (Vitamin D3) 1,000 UNIT TAB 1000 UNITS PO (09:30)
[2023-11-12] MEDS: Multivitamin w/Minerals TAB 1 TAB PO (09:30)
--- NOTE | 2023-11-12 09:38 | PUCC_ITS ---
General Date of Service Date of service: 11/12/23 Time of Service: 09:39 Reason for Admission to ICU: Respiratory failure Assessment and Plan Assessment and plan (1) Anemia: Status: Chronic (2) Diffuse pulmonary alveolar hemorrhage: Status: Acute (3) Community acquired pneumonia: Status: Acute (4) Hypoxic respiratory failure: Status: Acute (5) Idiopathic pulmonary fibrosis: Status: Acute (6) Diabetes mellitus type 2, diet-controlled: Status: Acute Assessment and plan: This is a 63 yo admitted to the ICU for respiratory failure due to diffuse alveolar hemorrhage diagnosed on bronchoscopy. The etiology of the DAH is still unclear, however a vasculitis work up is pending. I started him on 1g methylprednisilone daily with plans for a 3 day burst, ending tomorrow morning. We will start him on prednisone 60mg daily after this pulse dose is over. We will need to engage rheumatology to look for guidance on the possibility of a vasculitis, particularly given his hematuria on admission. He continues to have a drifting anemia - in part due to hospitalization, but I also do worry about the role the [facility] is playing in this. (7) Hematuria: Status: Acute Recommendations Pulmonary: Hypoxic respiratory failure - supplemental O2 for sats >90% - can switch HFNC to nasal cannula today - nebs QID Diffuse alveolar hemorrhage - methylpred 500mg IV bid x 6 doses - start prednisone 60mg daily tomorrow - vasculitis panel pending - rheumatology consultation recommended IPF - hold OFEV in setting of DAH Cardiac: Hypertension - post-op hypotension resolved - can start re-instituting home BP meds Renal: Hematuria - observe I&O: Intake & Output 11/09/23 11/10/23 11/11/23 11/12/23 23:59 23:59 23:59 23:59 Intake Total 850 / 850 1272.187 / 4589.332 5831 / 1830 Output Total 1050 / 1500 2525 / 2525 275 / 275 Balance 850 / 850 222.187 / -227.813 -695 / -695 -275 / -275 Weight 87.1 kg 83.7 kg Daily Fluid Goal:: even GI Nutrition: Ok for diet Date of Last Bowel Movement: 11/11/23 Infectious Disease: Possible CAP - can stop ceftriaxone and azithromycin after 5 days of therapy Hematologic: Anemia - continue to monitor Neurologic: No acute concerns Endocrine: Diabetes - glucose levels elevated now due to steroids Lines: PIV Prophylaxis: Hold chemical DVT ppx for now due to DAH Code Status: Resuscitation Status Full Code Subjective Critical and life-threatening events over the past 24 hours: Efra is looking good today His breathing has subjectively improved, he is coughing out some sputum which is blood tinged, but much improved from previous. His O2 needs are improving and can likely be transition to normal nasal cannula today. Exam Narrative Exam Narrative: Gen: NAD, normal respiratory effort, well-nourished HENT: PERRL Chest: No respiratory distress, normal appearance of chest, bilateral lower field crackles Heart: regular rate and rhythym, no murmurs, rubs or gallops Abdomen: Non-distended, soft, non tender Extremities: No clubbing, edema, cyanosis, rashes Neuro: AAOx3 , non focal Psych: cooperative, appropriate mental affect Most Recent VS/Results Last Vital Signs Temp 36.8 C 11/11/23 23:02 Pulse 113 H 11/11/23 21:05 Resp 22 11/12/23 03:00 BP 145/83 H 11/11/23 21:05 Pulse Ox 95 11/12/23 03:00 Laboratory Results - last 24 hr 11/10/23 12:37 BAL Neutrophils 84 BAL Lymphocytes 3 BAL Eosinophils 4 BAL Monocyte/Macrophage 9 Review of Systems All systems reviewed & are unremarkable except as noted in HPI and below Time spent with patient Time spent in Critical Care: 45 Time spent in Critical care included: Coordination of care, Chart review, Documenting critically ill care, Time at immediate bedside and Discussing critically ill care with other medical staff
[2023-11-12] MEDS: methylPREDNISolone SUCC 500 MG in Normal Saline 100 ML 200 MG IVPB ×2 (09:47→20:14)
[2023-11-12] MEDS: Normal Saline Flush 10 ML SYR IVP ×2 (09:48→20:17)
--- NOTE | 2023-11-12 09:51 | DI.RAD_ITS ---
Exam(s) XR PORTABLE CHEST AP EXAM: XR PORTABLE CHEST AP CLINICAL HISTORY: hypoxia, aveolar hemorrhage TECHNIQUE: 2D digital imaging was performed of the chest. Two images were obtained. AP views were obtained. COMPARISON: CR,XR XR PORTABLE CHEST AP from 11/08/2023 FINDINGS: MEDIASTINUM: Normal. HEART: Normal. PULMONARY VASCULATURE: Normal. LUNGS: There has been significant improvement in the bilateral basilar opacities. Mild opacities per sist particularly in the left lung base. No canal infiltrates are seen. PLEURAL SPACE: No pleural effusion or pneumothorax. BONE:Within normal limits for the patient's age. OTHER FINDINGS:Normal. IMPRESSION: Persistent but improved bilateral basilar opacities since 11/08/2023. DATA REPOSITORY: RADIATION DOSE DELIVERED:
--- NOTE | 2023-11-12 10:17 | PGE_ITS ---
Date of Service Date of service: 11/12/23 Time of Service: 10:18 Assessment and Plan Assessment and plan (1) Diffuse pulmonary alveolar hemorrhage: Status: Acute Assessment and plan: This is new and unexpected finding on bronchoscopy. Case reviewed with Dr. Quiroz. This does suggest an inflammatory/connective tissue disease etiololgy to his lung disease rather than strait forward IPF. CT disease/vasculitis labs sent along with infection assays from bronchial washings. He is tolerating high dose steroids methylprednisolone, appreciate updated recommendations. Plan to touch base with [facility] [place] [place] rheumatology to help plan work up and follow up. (2) Severe sepsis: Status: Resolved Assessment and plan: hemodynamically stable after initial resuscitation. On cetriaxone and azithromycin to cover pneumonia, plan to complete 5 days. Was briefly on norepi post operatively after bronchoscopy. Resuming lisinopril, amlodipine. (3) Hypoxic respiratory failure: Status: Acute Assessment and plan: Increased oxygen need since bronchoscopy. Still on HFNC. He did get fluids due to hypotension a/w his anesthesia. Tried furosemide x 1 11/10 with diuresis but no clear impact on oxygenation. Getting bronchodilators for bronchospasm, try weaning to NC today. (4) Community acquired pneumonia: Status: Acute Assessment and plan: continue ceftriaxone and azithromycin day 4, bronchial washing studies pending (5) Idiopathic pulmonary fibrosis: Status: Acute Assessment and plan: Holding Ofev given hemorrhage as above. Diagnosis evolving as above. (6) Diabetes mellitus type 2, diet-controlled: Status: Acute Assessment and plan: was diet controlled with last A1C 5.8, but sugar remains >200 this morning on steroids. Titrate insulin, I anticipate this is just short term. (7) Discharge planning issues: Status: Acute Assessment and plan: Chemical DVT prophylaxis on hold secondary to hemoptysis PT consulted and recommendations for home health PT upon discharge Case management following for discharge planning, will need rheum and pulmonary f/u as above. He is anxoius about time off work at [employer], needs a note. (8) Anemia: Status: Chronic Assessment and plan: Previous mild anemia felt relate to blood loss, negative work up. Iron studies in September c/w anemia chronic disease. Anemia worse now, more macrocytic, but stable day to day. Lung hemorrhage could be contributing but likely more related to his inflammatory condition. Get b12/folate with labs to rule these out with next cbc 11/12. Subjective Subjective Patient reports: tolerating a regular diet and voiding w/o difficulty; denies diarrhea, nausea, vomiting or fever Interval history since last seen: No events. Weaned FiO2 to 41%, still on HFNC Feels well, but still SOB with moving around the room, oxygen drops when he takes off HFNC. Less blood in sputum, streaks now. His energy has been up since going on steroids. Eating some. BM yesterday after metamucil. Exam Narrative Exam Narrative: Sitting up in bed, NAD, A&O x 3. Respirations are even and unlabored at rest, with HFNC in place. Has bilateral dry crackles 1/3 up bases, no wheezing. Cardiovascular regular rate and rhythm no murmurs appreciated. Abdomen is round soft nontender. bilateral lower extremities with no peripheral edema skin with no rashes or lesions. Objective Last Vital Signs Temp 36.8 C 11/11/23 23:02 Pulse 88 11/12/23 09:00 Resp 28 H 11/12/23 10:00 BP 158/83 H 11/12/23 07:06 Pulse Ox 92 11/12/23 10:00 Laboratory Results - last 24 hr 11/10/23 12:37 BAL Neutrophils 84 BAL Lymphocytes 3 BAL Eosinophils 4 BAL Monocyte/Macrophage 9 Time Spent with Patient Time Spent with Patient: >50 minutes Time was spent: preparing to see the patient(eg.review tests), obtaining and/or reviewing separately otained hiistory, ordering medications,tests, procedures, referring, communicating with other health health care / medical job titles, indepentently interpreting results, counseling the patient and care coordination
--- NOTE | 2023-11-12 11:57 | CMPROGNOTE_ITS ---
Date of service: 11/12/23 Time of Service: 11:58 Care Management Progress Note Progress Note Text Progress Note Text: S/O: Efra was sleeping when CM went to see him and chose not to disturb him. Clinically Efra is showing slow improvement. He is receiving high dose steroids and has more energy and an increased appetite. Efra is still short of breath and remains on high flow oxygen. He was seen by Dr. Valdes who made some recommendations for changes in his treatment plan. A: Efra is a 63 year old male admitted to [facility] on 11/08/23 with severe sepsis, CAP. P: Anticipate Efra will return home once medically cleared. His will drive him home via private vehicle when ready. He will follow up with his PCP and discharge plan of care. CM will continue to follow. SDOH(Care Management) Screening Will the Patient Participate in the Screening?: Yes Do you worry about having a steady place to live?: no Problems where you live: no known problems In the past 12 months, have you had to go without electric, gas, oil or water in your home?: no Have you or anyone in your house had to go without enough food to eat?: no Has lack of transportation kept you from medical appointments or from doing things needed for daily living?: no Has anyone in your support network made you feel unsafe for any reason?: no
[2023-11-12] MEDS: Lisinopril 20 MG TAB PO (12:06)
[2023-11-12] MEDS: amLODIPine 5 MG TAB PO (12:06)
[2023-11-12 18:27] LABS: Myeloperoxidase Ab IgG >8.0 U; Proteinase 3 Ab (PR3) <0.2 U
[2023-11-12] MEDS: Psyllium PKT 1 EACH PO (20:14)
[2023-11-12] MEDS: Insulin Glargine 300 UNITS/3 ML PEN 18 UNITS SC (20:15)
[2023-11-12] MEDS: Acetaminophen 325 MG TAB 650 MG PO (21:16)
[2023-11-12] MEDS: Famotidine 20 MG TAB 40 MG PO (22:15)
[2023-11-12] MEDS: traZODone 50 MG TAB PO (22:15)
[2023-11-12] MEDS: Atorvastatin 10 MG TAB PO (22:15)
[2023-11-13] VITALS (31 sets, daily range): BP systolic 149–162; BP diastolic 69–82; PULSE 63–123; RESP 2–35; TEMP 36.4–37; O2SAT 85–96
[2023-11-13] MEDS: Levothyroxine 150 MCG TAB PO (05:49)
[2023-11-13 06:53] LABS: HCT 27.6 % (40.0-50.0); HGB 9.1 g/dL (13.5-17.5); MCV 100 fL (80-95); MPV 8.7 fL (8.0-11.0); Platelet Count 320 10^3/uL (130-400); RBC 2.76 10^6/uL (4.36-5.78); RDW 13.7 % (11.8-14.1); RDW-SD 49.8 fL; WBC 16.38 10^3/uL (4.4-10.8)
--- NOTE | 2023-11-13 07:26 | W.PULMCC ---
General Date of Service Date of service: 11/13/23 Time of Service: 07:29 Reason for Admission to ICU: Respiratory failure Assessment and Plan Assessment and plan (1) Anemia: Status: Chronic (2) Diffuse pulmonary alveolar hemorrhage: Status: Acute (3) Community acquired pneumonia: Status: Acute (4) Hypoxic respiratory failure: Status: Acute (5) Vasculitis: Status: Acute (6) Idiopathic pulmonary fibrosis: Status: Acute (7) Hematuria: Status: Acute (8) Diabetes mellitus type 2, diet-controlled: Status: Acute Assessment and plan: This is a 63 yo admitted to the ICU for respiratory failure due to diffuse alveolar hemorrhage diagnosed on bronchoscopy. The etiology of the DAH seems to likely be vasculitis. I discussed his case with [facility] [place] rheumatology who agrees this is concerning for vasculitis. They agreed with the methylprednisilone pulse dose for 3-5 days depending on improvement. Given his improvement so far, I think we can stop the IV methylpred today and transition to a high dose prednisone regimen as I have outlined below. [facility] rheumatology did not think he needed to be started on Rituxan/cyclophosphamide if responding to steroids. He should get plugged in with rheumatology and he prefers [facility], so I will arrange for this. I have added more labs for work up as recommended by rheumatology. From my perspective he is safe to transfer from the ICU to Med-surg at any time. 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 - methylpred 500mg IV bid x 6 doses - start prednisone 60mg daily today - no indication to start Rituxan currently - vasculitis labs pending - rheumatology consultation appreciated IPF - hold OFEV in setting of DAH Cardiac: Hypertension - post-op hypotension resolved - can start re-instituting home BP meds: resuming metoprolol today Renal: Hematuria - observe I&O: Intake & Output 11/10/23 11/11/23 11/12/23 11/13/23 23:59 23:59 23:59 23:59 Intake Total 1272.187 / 6854.890 7094 / 1830 2210 / 2210 250 / 250 Output Total 1050 / 1500 2525 / 2525 2200 / 2200 775 / 775 Balance 222.187 / -227.813 -695 / -695 -525 / -525 Weight 87.1 kg 83.7 kg 84.2 kg Daily Fluid Goal:: even GI Nutrition: Ok for diet Date of Last Bowel Movement: 11/12/23 Infectious Disease: Possible CAP - can stop ceftriaxone and azithromycin after 5 days of therapy Hematologic: Anemia - continue to monitor Neurologic: No acute concerns Endocrine: Diabetes - glucose levels elevated now due to steroids - SSI Lines: PIV Prophylaxis: Hold chemical DVT ppx for now due to DAH - SCD's recommended Code Status: Resuscitation Status Full Code Subjective Critical and life-threatening events over the past 24 hours: His O2 requirements have improved and he subjectively is doing better. I discussed the case with [facility] rheumatology who gave more lab testing recommendations. They also stated that if he was having a favorable response to the methylprednisilone that after 3 days he can be transitioned to a high dose, prolonged steroid taper with rheumatology follow up to assess whether he would need Rituxan or if he is able to achieve remission with simply just steroids. Efra is feeling much improved and doing more and more each day. Exam Narrative Exam Narrative: Gen: NAD, normal respiratory effort, well-nourished HENT: PERRL Chest: No respiratory distress, normal appearance of chest, bilateral lower field crackles - improved from yesterday Heart: regular rate and rhythym, no murmurs, rubs or gallops Abdomen: Non-distended, soft, non tender Extremities: No clubbing, edema, cyanosis, rashes Neuro: AAOx3 , non focal Psych: cooperative, appropriate mental affect Most Recent VS/Results Last Vital Signs Temp 37 C 11/13/23 03:10 Pulse 106 H 11/12/23 22:19 Resp 26 H 11/13/23 03:00 BP 156/79 H 11/12/23 22:19 Pulse Ox 92 11/13/23 03:00 Laboratory Results - last 24 hr 11/10/23 11/10/23 11/10/23 12:37 12:37 12:37 WBC RBC Hgb Hct MCV MCH MCHC RDW Plt Count MPV Gram Stain Neutrophils Present A SEE BELOW A Aerobic Culture No Growth SEE BELOW Ref Test Specimen Type Not Applicable Ref Report Verification 11/10/23 11/10/23 11/13/23 12:37 12:37 06:19 WBC 16.38 H RBC 2.76 L Hgb 9.1 L Hct 27.6 L MCV 100 H MCH 33.0 MCHC 33.0 RDW 13.7 Plt Count 320 MPV 8.7 Gram Stain Aerobic Culture Ref Test Specimen Type Not Applicable Ref Report Verification Not Applicable Not Applicable Review of Systems All systems reviewed & are unremarkable except as noted in HPI and below Time spent with patient Time spent in Critical Care: 45 Time spent in Critical care included: Coordination of care, Chart review, Documenting critically ill care, Time at immediate bedside and Discussing critically ill care with other medical staff
[2023-11-13 07:35] LABS: Folate 17.1 ng/mL (8.6-20.0); Vitamin B12 1180 pg/mL (193-986)
[2023-11-13] MEDS: Albuterol/Ipratropium 3 ML UPD VIAL UPD ×3 (07:46→19:49)
[2023-11-13] MEDS: Insulin Aspart 300 UNITS/3 ML PEN SC ×3 (07:51→16:59)
[2023-11-13] MEDS: Lisinopril 20 MG TAB PO (07:52)
[2023-11-13] MEDS: Sulfameth/Trimeth DS TAB 1 TAB PO (07:52)
[2023-11-13] MEDS: Multivitamin w/Minerals TAB 1 TAB PO (07:52)
[2023-11-13] MEDS: Cholecalciferol (Vitamin D3) 1,000 UNIT TAB 1000 UNITS PO (07:53)
[2023-11-13] MEDS: amLODIPine 5 MG TAB PO (07:53)
[2023-11-13] MEDS: predniSONE 20 MG TAB 60 MG PO (07:53)
[2023-11-13] MEDS: Normal Saline Flush 10 ML SYR IVP ×2 (07:53→20:30)
[2023-11-13] MEDS: Fluticasone NASAL SPRAY 16 GM BTL NS (07:54)
[2023-11-13] MEDS: methylPREDNISolone SUCC 500 MG in Normal Saline 100 ML 200 MG IVPB (07:58)
[2023-11-13 08:28] LABS: ESR 41 mm/hr (0-20)
--- NOTE | 2023-11-13 09:37 | CMPROGNOTE_ITS ---
Date of service: 11/13/23 Time of Service: 09:38 Care Management Progress Note Progress Note Text Progress Note Text: S/O: Efra was sitting up in his chair when CM met with him. He stated that he just spoke to Dr. Valdes and was given a new diagnosis, which he has not had time to fully process. He reported that he is glad to have a diagnosis, and to know that there is a possibility of remission in the future. Efra asked CM to follow up on short term disability paperwork, which was sent to his PCP office today. CM called [facility], and was informed that it has been received, and his new PCP, Mickey Kamara, will be filling it out. CM will continue to follow. A: Efra is a 63 year old male admitted to [facility] on 11/08/23 with severe sepsis, CAP. P: Anticipate Efra will return home once medically cleared. His will drive him home via private vehicle when ready. He will follow up with his PCP and discharge plan of care. CM will continue to follow. SDOH(Care Management) Screening Will the Patient Participate in the Screening?: Yes Do you worry about having a steady place to live?: no Problems where you live: no known problems In the past 12 months, have you had to go without electric, gas, oil or water in your home?: no Have you or anyone in your house had to go without enough food to eat?: no Has lack of transportation kept you from medical appointments or from doing things needed for daily living?: no Has anyone in your support network made you feel unsafe for any reason?: no
--- NOTE | 2023-11-13 14:49 | RESPIRATORY ---
Efra has expressed interest in getting a portable concentrator for new home O2 if needed upon discharge. RT looked into flow restrictions today and found the following from [employer]: Machine: P2 Rhythm Concentrator. Maximum flow rate 5L auto-pulse dose. (Not patient triggered pulse dose. This machine gives automatic timed pulses instead of waiting for patient trigger). Patient will need to have an official exercise oximetry test done on RT's pulse-dose regulator to qualify for this machine before discharge.
--- NOTE | 2023-11-13 15:32 | CHAPLAIN ---
Efra is feeling better today, but said he's not out of the galo yet. Efra had blood in his lungs and was coughing up blood. He's now on oxygen, something new for him. He's please with the care that he's getting and plans to follow Dr. Stanley from [facility] when she moves her practice there. Efra said he'll also be referred to a elementary assistant principal at [facility]. This type of care is all new to him. Efra is a member of [employer] and has been visited by Fr. Monson. His is also very supportive. They have several dogs, and Efra said he is missing them. He asked about pet therapy here, so I'll look into that for him.
--- NOTE | 2023-11-13 17:23 | PGE_ITS ---
Date of Service Date of service: 11/13/23 Time of Service: 17:23 Assessment and Plan Assessment and plan (1) Diffuse pulmonary alveolar hemorrhage: Status: Acute Assessment and plan: This was a new and unexpected finding on bronchoscopy 11/10. 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 Steroids are appropriate treatment per rheumatology Dr. Quiroz following, plan to follow up with [facility] [place] rheumatology as outpatient. (2) Granulomatosis with polyangiitis: Status: Acute Assessment and plan: as above (3) Severe sepsis: Status: Resolved Assessment and plan: hemodynamically stable after initial resuscitation. On cetriaxone and azithromycin to cover pneumonia, completed 5 days 11/11 and now off. Was briefly on norepi post operatively after bronchoscopy BP meds were held, now back on them. (4) Hypoxic respiratory failure: Status: Acute Assessment and plan: Increased oxygen need since bronchoscopy. Now on NC, will likely need home 02, setting this up. (5) Community acquired pneumonia: Status: Acute Assessment and plan: s/p 5 days of ceftriaxone and azithromycin (6) Idiopathic pulmonary fibrosis: Status: Acute Assessment and plan: Holding Ofev given hemorrhage as above indefinitely. (7) Diabetes mellitus type 2, diet-controlled: Status: Acute Assessment and plan: was diet controlled with last A1C 5.8, but sugar remains >200 this morning on steroids. Titrate insulin, I anticipate this is just short term, but he may still need on discharge (8) Anemia: Status: Chronic Assessment and plan: Previous mild anemia felt relate to blood loss, negative work up. Iron studies in September c/w anemia chronic disease. Anemia worse now, more macrocytic, but stable day to day. Lung hemorrhage could be contributing but likely more related to his inflammatory condition. Get b12/folate pending (9) Discharge planning issues: Status: Acute Assessment and plan: PT consulted and recommendations for home health PT upon discharge Case management following for discharge planning, will need rheum and pulmonary f/u as above. 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 Subjective Subjective Patient reports: no new complaints and feels better; denies nausea, vomiting or fever Interval history since last seen: Weaned to nasal canula. Breathing feeling better. Now just brown in sputum, no red blood. Exam Narrative Exam Narrative: Sitting up in bed, NAD, A&O x 3. Respirations are even and unlabored at rest, with NC in place, speaking full sentences without difficulty. Has bilateral dry crackles 1/3 up bases, no wheezing. Cardiovascular regular rate and rhythm no murmurs appreciated. bilateral lower extremities with no peripheral edema skin with no rashes or lesions. Objective Last Vital Signs Temp 36.5 C 11/13/23 14:51 Pulse 108 H 11/13/23 14:51 Resp 22 11/13/23 14:49 BP 162/80 H 11/13/23 14:49 Pulse Ox 91 L 11/13/23 14:49 Laboratory Results - last 24 hr 11/10/23 11/13/23 11/13/23 06:32 06:14 06:19 WBC 16.38 H RBC 2.76 L Hgb 9.1 L Hct 27.6 L MCV 100 H MCH 33.0 MCHC 33.0 RDW 13.7 Plt Count 320 MPV 8.7 ESR 41 H C-Reactive Protein 2.40 H Vitamin B12 1180 H Folate 17.1 Proteinase 3 (PR3) <0.2 Myeloperoxidase Ab >8.0 H Time Spent with Patient Time Spent with Patient: 35-49 minutes Time was spent: preparing to see the patient(eg.review tests), obtaining and/or reviewing separately otained hiistory, ordering medications,tests, procedures, referring, communicating with other health child care sitter, indepentently interpreting results, counseling the patient and care coordination
[2023-11-13] MEDS: Psyllium PKT 1 EACH PO (20:29)
[2023-11-13] MEDS: Insulin Glargine 300 UNITS/3 ML PEN 22 UNITS SC (20:31)
[2023-11-13] MEDS: traZODone 50 MG TAB PO (23:16)
[2023-11-13] MEDS: Famotidine 20 MG TAB 40 MG PO (23:16)
[2023-11-14] VITALS (28 sets, daily range): BP systolic 149–150; BP diastolic 74–77; PULSE 64–98; RESP 2–31; TEMP 36.6–36.7; O2SAT 86–95
[2023-11-14] MEDS: Levothyroxine 150 MCG TAB PO (06:09)
[2023-11-14] MEDS: Cholecalciferol (Vitamin D3) 1,000 UNIT TAB 1000 UNITS PO (08:00)
[2023-11-14] MEDS: predniSONE 20 MG TAB 60 MG PO (08:00)
[2023-11-14] MEDS: Multivitamin w/Minerals TAB 1 TAB PO (08:00)
[2023-11-14] MEDS: Lisinopril 20 MG TAB PO (08:00)
[2023-11-14] MEDS: Sulfameth/Trimeth DS TAB 1 TAB PO (08:02)
[2023-11-14] MEDS: amLODIPine 5 MG TAB PO (08:02)
[2023-11-14] MEDS: Metoprolol CR 50 MG TABCR PO (08:02)
[2023-11-14] MEDS: Normal Saline Flush 10 ML SYR IVP ×2 (08:03→22:34)
[2023-11-14] MEDS: Insulin Aspart 300 UNITS/3 ML PEN SC ×3 (08:08→17:05)
[2023-11-14] MEDS: Albuterol/Ipratropium 3 ML UPD VIAL UPD ×4 (08:15→20:24)
--- NOTE | 2023-11-14 10:33 | PGE_ITS ---
Date of Service Date of service: 11/14/23 Time of Service: 10:33 Assessment and Plan Assessment and plan (1) Diffuse pulmonary alveolar hemorrhage: Status: Acute Assessment and plan: This was a new and unexpected finding on bronchoscopy 11/10. 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 Steroids are appropriate treatment per rheumatology, will need prolonged taper SMX/TMP added for PJP prophylaxis with prolonged steroid need. Dr. Quiroz following, plan to follow up with [facility] [place] rheumatology as outpatient. (2) Granulomatosis with polyangiitis: Status: Acute Assessment and plan: as above Some hematuria but renal function has been stable, will need monitoring of this as outpatient along with lung disease. (3) Severe sepsis: Status: Resolved Assessment and plan: hemodynamically stable after initial resuscitation. S/p ceftriaxone and azithromycin to cover pneumonia, completed 5 days 11/11 and now off. Was briefly on norepi post operatively after bronchoscopy BP meds were held, now back on them. (4) Hypoxic respiratory failure: Status: Acute Assessment and plan: Increased oxygen need since bronchoscopy. Now on NC down to 3L, home 02 getting set up. (5) Community acquired pneumonia: Status: Acute Assessment and plan: s/p 5 days of ceftriaxone and azithromycin (6) Idiopathic pulmonary fibrosis: Status: Acute Assessment and plan: Holding Ofev given hemorrhage as above indefinitely. (7) Diabetes mellitus type 2, diet-controlled: Status: Acute Assessment and plan: was diet controlled with last A1C 5.8, but sugars high on high dose IV steroids so insulin started. BS good this morning, watch and consider cutting back/stopping as he may not need them on just prednisone. (8) Anemia: Status: Chronic Assessment and plan: Previous mild anemia felt relate to blood loss, negative work up. Iron studies in September c/w anemia chronic disease. Anemia worse now, more macrocytic, but stable. Lung hemorrhage could be contributing but likely more related to his inflammatory condition. Get b12/folate good. (9) Discharge planning issues: Status: Acute Assessment and plan: PT consulted and recommendations for home health PT upon discharge Case management following for discharge planning, will need rheum and pulmonary f/u as above. 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 Subjective Subjective Patient reports: tolerating a regular diet and voiding w/o difficulty; denies diarrhea, nausea or fever Interval history since last seen: Continues to feel better, mentally feels good. Still gets SOB with activity and saturation drops to 88%. He would like to shower. cough better Exam Narrative Exam Narrative: Sitting up in bed, NAD, A&O x 3. Respirations are even and unlabored at rest, with NC in place, speaking full sentences without difficulty. Has bilateral dry crackles 1/3 up bases, no wheezing. Cardiovascular regular rate and rhythm no murmurs appreciated. bilateral lower extremities with no peripheral edema skin with no rashes or lesions. Objective Last Vital Signs Temp 36.6 C 11/14/23 07:43 Pulse 91 H 11/14/23 08:22 Resp 28 H 11/14/23 09:00 BP 150/74 H 11/14/23 07:43 Pulse Ox 90 L 11/14/23 09:00 Laboratory Results - last 24 hr 11/10/23 06:32 Proteinase 3 (PR3) <0.2 Myeloperoxidase Ab >8.0 H Time Spent with Patient Time Spent with Patient: 35-49 minutes Time was spent: preparing to see the patient(eg.review tests), obtaining and/or reviewing separately otained hiistory, ordering medications,tests, procedures, referring, communicating with other health interior plant caretaker, indepentently interpreting results, counseling the patient and care coordination
[2023-11-14] MEDS: Psyllium PKT 1 EACH PO (20:15)
[2023-11-14] MEDS: Atorvastatin 10 MG TAB PO (22:33)
[2023-11-14] MEDS: Insulin Glargine 300 UNITS/3 ML PEN 22 UNITS SC (22:33)
[2023-11-14] MEDS: traZODone 50 MG TAB PO (22:33)
[2023-11-14] MEDS: Famotidine 20 MG TAB 40 MG PO (22:33)
[2023-11-15] VITALS (8 sets, daily range): BP systolic 127–129; BP diastolic 73; PULSE 75–83; RESP 2–20; TEMP 36.6–36.7; O2SAT 92–96
[2023-11-15] MEDS: Levothyroxine 150 MCG TAB PO (06:13)
[2023-11-15] MEDS: Albuterol/Ipratropium 3 ML UPD VIAL UPD ×4 (07:53→20:32)
[2023-11-15] MEDS: Normal Saline Flush 10 ML SYR IVP ×2 (08:56→19:58)
[2023-11-15] MEDS: amLODIPine 5 MG TAB PO (08:57)
[2023-11-15] MEDS: Sulfameth/Trimeth DS TAB 1 TAB PO (08:57)
[2023-11-15] MEDS: Lisinopril 20 MG TAB PO (08:57)
[2023-11-15] MEDS: Metoprolol CR 50 MG TABCR PO (08:58)
[2023-11-15] MEDS: Cholecalciferol (Vitamin D3) 1,000 UNIT TAB 1000 UNITS PO (08:58)
[2023-11-15] MEDS: Multivitamin w/Minerals TAB 1 TAB PO (08:58)
[2023-11-15] MEDS: predniSONE 20 MG TAB 60 MG PO (08:58)
--- NOTE | 2023-11-15 10:38 | W.PM.PROGNOT ---
Date of Service Date of service: 11/15/23 Time of Service: 10:38 Assessment and Plan Assessment and plan (1) Diffuse pulmonary alveolar hemorrhage: Status: Acute Assessment and plan: This was a new and unexpected finding on bronchoscopy 11/10. 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 continue prednisone high dose, slow taper w/ TMP/SMX for PJP prophylaxis; follow up w/ Dr. Valdes and [facility] [place] rheumatology (Dr. Valdes indicated she is arranging and patient says that he has already had a call from them. Patient may need to go home on supplemental oxygen, however he has improved considerably from his hypoxemia after his initial hemorrhage and bronchoscopy (2) Granulomatosis with polyangiitis: Status: Acute Assessment and plan: as above Some hematuria but renal function has been stable, will need monitoring of this as outpatient along with lung disease. (3) Severe sepsis: Status: Resolved Assessment and plan: hemodynamically stable after initial resuscitation. S/p ceftriaxone and azithromycin to cover pneumonia, completed 5 days 11/11 and now off. Blood cultures no growth. sputum NOF. Was briefly on norepi post operatively after bronchoscopy BP meds were held, now back on them. (4) Hypoxic respiratory failure: Status: Acute Assessment and plan: patient was not on home oxygen but required supplemental oxygen post bronchoscopy, continues to improve. down to 2 lpm. Qualifiers: Chronicity: acute Qualified Code(s): J96.01 - Acute respiratory failure with hypoxia (5) Community acquired pneumonia: Status: Suspected Assessment and plan: s/p 5 days of ceftriaxone and azithromycin for suspected CAP however, it has now been learned that he actually had diffuse alveolar hemorrhage from granulomatosis w/ polyangitis (6) Idiopathic pulmonary fibrosis: Status: Acute Assessment and plan: Holding Ofev given hemorrhage as above indefinitely. (7) Diabetes mellitus type 2, diet-controlled: Status: Acute Assessment and plan: was diet controlled with last A1C 5.8, but sugars high on high dose IV steroids so insulin started. Blood sugars improving since coming off high dose methylprednisolone. Glucose 113 this morning and 220 at lunch time. I will start him on NPH. this should be given daily w/ his prednisone. dosing is usually 0.5 units per 1 mg prednisone. this should blunt his hyperglycemic response to prednisone. (8) Anemia: Status: Chronic Assessment and plan: macrocytic anemia; prior anemia workup c/w anemia of chronic disease, rpeeat folate and B12 levels were checked and found to be normal, will need close follow up; consider hematology referral as outpatient. Qualifiers: Anemia type: unspecified type Qualified Code(s): D64.9 - Anemia, unspecified (9) Discharge planning issues: Status: Acute Assessment and plan: still needs P.T. evaluation to determination of home needs. last P.T. visit was 11/08. Also will need RT to look into home oxygen setup if he still requires oxygen at the time of discharge. I anticipate dc home either tomorrow or Thursday. will confer w/ Dr. Valdes regarding steroid taper, close pulmonary and rheumatology follow up. Patient asking when he can go back to work. I told him to give it at least a week at home to see what his stamina and oxygen levels are doing. 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 Subjective Subjective Interval history since last seen: Efra continues to improve. Dyspnea is improving. No further hemoptysis. He denies any hematuria, although he did have microscopic hematuria and proteinuria on admission. He denies any skin lesions/purpura and denies any ocular involvement from his granulomatosis w/ polyangitis. Exam Narrative Exam Narrative: efra is sitting up in his chair, he is on2 lpm and oxygen saturation is 93 to 94% Lungs: clear Heart: RRR Extremities: no purpura or edema Objective Last Vital Signs Temp 36.6 C 11/15/23 08:02 Pulse 75 11/15/23 08:02 Resp 19 11/15/23 08:02 BP 127/73 11/15/23 08:02 Pulse Ox 93 11/15/23 08:02 Time Spent with Patient Time Spent with Patient: 35-49 minutes Time was spent: preparing to see the patient(eg.review tests), ordering medications,tests, procedures, referring, communicating with other health career education teacher, indepentently interpreting results, counseling the patient and care coordination
[2023-11-15] MEDS: Insulin Aspart 300 UNITS/3 ML PEN SC ×2 (11:52→17:32)
[2023-11-15] MEDS: Insulin NPH-Human 300 UNITS/3 ML PEN 15 UNIT SC (13:45)
[2023-11-15] MEDS: Psyllium PKT 1 EACH PO (19:57)
[2023-11-15] MEDS: Insulin Glargine 300 UNITS/3 ML PEN 15 UNITS SC (19:58)
[2023-11-15] MEDS: traZODone 50 MG TAB PO (22:13)
[2023-11-15] MEDS: Famotidine 20 MG TAB 40 MG PO (22:13)
[2023-11-16] MEDS: Levothyroxine 150 MCG TAB PO (05:43)
[2023-11-16 07:04] LABS: Absolute Basophil Count 0.04 10^3/uL (0.0-0.2); Absolute Eosinophil Count 0.14 10^3/uL (0.0-0.7); Basophils % 0.2 %; Eosinophils % 0.8 %; Immature Grans % 2.8 %; Lymphocytes % 12.8 %; MCH 33.2 pg (27.0-33.0); MCHC 33.3 % (32.0-36.0); MCV 100 fL (80-95); MPV 8.7 fL (8.0-11.0); Monocytes % 5.1 %; Neutrophils % 78.3 %; Nucleated RBC 0.1 % (0.0-0.3); Platelet Count 304 10^3/uL (130-400); RBC 2.71 10^6/uL (4.36-5.78); RDW 13.7 % (11.8-14.1); RDW-SD 49.1 fL; WBC 17.96 10^3/uL (4.4-10.8)
[2023-11-16 07:11] LABS: Absolute Monocyte Count 0.92 10^3/uL (0.1-0.8); Absolute Neutrophil Count 14.06 10^3/uL (1.2-6.7)
[2023-11-16 07:12] LABS: Anion Gap 9.9 mmol/L (3-11); BUN 38 mg/dL (7-18); CO2 22.1 mmol/L (21.0-32.0); CREATININE 1.3 mg/dL (0.70-1.30); Chloride 105 mmol/L (98-107); Estimated GFR 60.96 (mL/min/1.73m2); Glucose 161 mg/dL (74-106); Potassium 4.3 mmol/L (3.5-5.1); Sodium 137 mmol/L (136-145)
--- NOTE | 2023-11-16 07:38 | W.PULMPROG ---
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 He completed 3 days of high dose methylprednisilone 1g daily and is now on prednisone 60mg daily, which he has continued to do very well on. I have outlined the prednisone taper below that I recommend. He has an upcoming rheumatology appointment on November 22. He will not need nebs on discharge, but I would send him home with an albuterol inhaler to use prn. He should have a walk completed to see what support he needs with a POC for discharge. I discussed with him working with his PCP on insulin dosing, since as his prednisone dose decreases, he likely will not need as much insulin, and will likely come off it once on much lower prednisone doses. Granulomatosis with polyangiitis - prednisone 60mg for 2 weeks, 50mg for 1 week, 40mg for 1 week, 30mg for 2 weeks, 25 mg for 2 weeks, 20mg for 2 weeks, 15mg for 2 weeks, 12.5mg for 2 weeks, 10mg for 2 weeks, 7.5mg for 2 weeks, 5mg for 4 weeks - ok to prescribe the 2 weeks of 60 and 1 week of 50 mg as I will see him for short term follow up and rheum appointment is soon - Bactrim while on 20mg prednisone or higher - hold OFEV until rheumatology ok with restarting it - will plan for repeat chest CT in 2 months IPF - hold OFEV as above Hypoxic respiratory failure - walk test today prior to D/C General Date Of Service Date of service: 11/16/23 Time of Service: 07:38 Reason for Consult: Concern for Pneumonia found to be granulomatosis with polyangiitis Subjective Note Note: Efra is doing very well today. He has responded very favorably to the steroid regimen. He is down to 2LPM which can likely be further weaned. Exam Narrative Exam Narrative: Gen: NAD, normal respiratory effort, well-nourished HENT: PERRL Chest: No respiratory distress, normal appearance of chest, bibasilar crackles Heart: regular rate and rhythym, no murmurs, rubs or gallops Abdomen: Non-distended, soft, non tender Extremities: No clubbing, edema, cyanosis, rashes Neuro: AAOx3 , non focal Psych: cooperative, appropriate mental affect Objective Last Vital Signs Temp 36.7 C 11/15/23 20:09 Pulse 80 11/15/23 20:42 Resp 18 11/15/23 20:42 BP 129/73 11/15/23 20:09 Pulse Ox 96 11/15/23 20:42 Laboratory Results - last 24 hr 11/16/23 06:16 WBC 17.96 H RBC 2.71 L Hgb 9.0 L Hct 27.0 L MCV 100 H MCH 33.2 H MCHC 33.3 RDW 13.7 Plt Count 304 MPV 8.7 Immature Gran % 2.8 Neutrophils % 78.3 Lymphocytes % 12.8 Monocytes % 5.1 Eosinophils % 0.8 Basophils % 0.2 Nucleated RBC % 0.1 Absolute Neutrophils 14.06 H Absolute Lymphocytes 2.30 Absolute Monocytes 0.92 H Absolute Eosinophils 0.14 Absolute Basophils 0.04 Sodium 137 Potassium 4.3 Chloride 105 Carbon Dioxide 22.1 Anion Gap 9.9 BUN 38 H Creatinine 1.3 Est GFR (CKD-EPI 2020) 60.96 Glucose 161 H Calcium 8.0 L Results Medications Medications: Active Medications Generic Name Dose Route Start Last Admin Trade Name Freq PRN Reason Stop Dose Admin Acetaminophen 650 mg 11/08/23 23:00 11/12/23 21:16 Acetaminophen 325 Mg Tab PO 650 mg Q4H PRN PRN Administration Albuterol Sulfate 2.5 mg 11/08/23 13:04 11/08/23 16:07 Albuterol 2.5 Mg/3 Ml Inh Soln Vial UPD 2.5 mg Q2H PRN PRN Administration Albuterol/Ipratropium 3 ml 11/09/23 08:30 11/15/23 20:32 Albuterol/Ipratropium 3 Ml Upd Vial UPD 3 ml QID ARIEL Administration Amlodipine Besylate 5 mg 11/09/23 08:30 11/15/23 08:57 Amlodipine 5 Mg Tab PO 5 mg DAILY ARIEL Administration Atorvastatin Calcium 10 mg 11/08/23 22:00 11/14/23 22:33 Atorvastatin 10 Mg Tab PO 10 mg Q48H [facility] Administration Carboxymethylcellulose Sodium 0 each 11/11/23 19:02 Refresh Plus Eye Drops 0.4ml OU PRN PRN Cholecalciferol 1,000 units 11/09/23 08:30 11/15/23 08:58 Cholecalciferol (Vitamin D3) 1,000 Unit Tab PO 1,000 units DAILY ARIEL Administration Dextrose 0 gm 11/11/23 08:50 Glucose Oral Gel 15 Gm/37.5 Gm Tube PO DIRECTED PRN Dextrose/Water 0 gm 11/11/23 08:50 Dextrose 50%-Water 25 Gm/50 Ml Syr IVP DIRECTED PRN Famotidine 40 mg 11/08/23 22:00 11/15/23 22:13 Famotidine 20 Mg Tab PO 40 mg DAILY@2200 [facility] Administration Fluticasone Propionate 0 gm 11/09/23 08:30 11/15/23 09:02 Fluticasone Nasal [place] 16 Gm Btl NS Not Given DAILY [facility] IV Miscellaneous Supplies 1 each 11/08/23 10:30 Iv Access IV DIRECTED [facility] Insulin Aspart 0 units 11/11/23 12:00 11/15/23 17:32 Insulin Aspart 300 Units/3 Ml Pen SC 4 units 0800,1200,1700 [facility] Administration Protocol Insulin Glargine 15 units 11/15/23 20:00 11/15/23 19:58 Insulin Glargine 300 Units/3 Ml Pen SC 15 unit HS [facility] Administration Insulin Human NPH 30 unit 11/17/23 08:30 Insulin Nph-Human 300 Units/3 Ml Pen SC DAILY [facility] Iron/Minerals/Multivitamins 1 tab 11/09/23 08:30 11/15/23 08:58 Multivitamin W/Minerals Tab PO 1 tab DAILY [facility] Administration Levothyroxine Sodium 150 mcg 11/09/23 06:00 11/16/23 05:43 Levothyroxine 150 Mcg Tab PO 150 mcg DAILY@0600 [facility] Administration Lisinopril 20 mg 11/12/23 10:00 11/15/23 08:57 Lisinopril 20 Mg Tab PO 20 mg DAILY ARIEL Administration Loperamide HCl 2 mg 11/09/23 08:30 Loperamide 2 Mg Cap PO DAILY PRN PRN Loratadine 10 mg 11/08/23 13:04 Loratidine 10 Mg Tab PO DAILY PRN PRN Metoprolol Succinate 50 mg 11/09/23 08:30 11/15/23 08:58 Metoprolol Cr 50 Mg Tabcr PO 50 mg DAILY ARIEL Administration Olopatadine HCl 0 ml 11/08/23 13:04 Olopatadine 0.1% Ophth [place] 5 Ml Btl OP BID PRN PRN Prednisone 60 mg 11/13/23 08:30 11/15/23 08:58 Prednisone 20 Mg Tab PO 60 mg DAILY ARIEL Administration Psyllium Hydrophilic Mucilloid 1 each 11/09/23 20:00 11/15/23 19:57 Psyllium Pkt PO 1 each QPM ARIEL Administration Sodium Chloride 0 ml 11/08/23 20:00 11/15/23 19:58 Normal Saline Flush 10 Ml Syr IVP 10 ml BID ARIEL Administration Sodium Chloride 0 ml 11/08/23 10:26 Normal Saline 10 Ml Vial IJ DIRECTED PRN Trazodone HCl 50 mg 11/08/23 22:00 11/15/23 22:13 Trazodone 50 Mg Tab PO 50 mg DAILY@2200 ARIEL Administration Trimethoprim/Sulfamethoxazole 1 tab 11/13/23 08:30 11/15/23 08:57 Sulfameth/Trimeth Ds Tab PO 1 tab DAILY ARIEL Administration Allergies seasonal Allergy (Mild, Uncoded 11/08/23 10:21) Itching Labs 11/16/23 06:16 11/16/23 06:16 Labs: 11/08/23 11:40 Blood Blood Culture - Final NO GROWTH 120 HOURS 11/08/23 11:00 Blood Blood Culture - Final NO GROWTH 120 HOURS 11/09/23 09:36 Sputum Sputum Culture - Final Normal Jennifer 11/09/23 09:36 Sputum Gram Stain - Final Laboratory Tests Range/Units 11/08/23 11/08/23 11/08/23 10:26 10:30 10:45 WBC (4.4-10.8) 10^3/uL 7.60 RBC (4.36-5.78) 10^6/uL 3.24 L Hgb (13.5-17.5) g/dL 10.7 L Hct (40.0-50.0) % 32.0 L MCV (80-95) fL 99 H MCH (27.0-33.0) pg 33.0 MCHC (32.0-36.0) % 33.4 RDW (11.8-14.1) % 13.2 Plt Count (130-400) 10^3/uL 210 MPV (8.0-11.0) fL 8.4 Immature Gran % % 0.3 Neutrophils % % 71.9 Band Neutrophils % % Lymphocytes % % 12.1 Monocytes % % 12.8 Eosinophils % % 2.2 Basophils % % 0.7 Nucleated RBC % (0.0-0.3) % 0.0 Absolute Neutrophils (1.2-6.7) 10^3/uL 5.47 Absolute Lymphocytes (1.2-3.4) 10^3/uL 0.92 L Absolute Monocytes (0.1-0.8) 10^3/uL 0.97 H Absolute Eosinophils (0.0-0.7) 10^3/uL 0.17 Absolute Basophils (0.0-0.2) 10^3/uL 0.05 RBC Morphology ESR (0-20) mm/hr PT (9.1-11.1) sec 11.1 INR (0.9-1.1) 1.1 APTT (23.6-32.8) sec 29.2 VBG pH (7.31-7.41) 7.43 H VBG pCO2 (41-51) mmHg 35 L VBG pO2 mmHg 42 VBG HCO3 (23-28) mmol/L 23 VBG Total CO2 (24-29) mmol/L 21 L VBG O2 Saturation % 79 VBG Base Excess (-2-3) mmol/L -2 VBG Lactate (0.6-1.4) mmol/L 1.7 H Sodium Cancelled 140 Potassium Cancelled 3.8 Chloride Cancelled 102 Carbon Dioxide Cancelled 23.6 Anion Gap Cancelled 14.4 H BUN Cancelled 26 H Creatinine Cancelled 1.4 H Est GFR (CKD-EPI 2020) Cancelled 55.78 Glucose Cancelled 148 H Calcium Cancelled 8.6 Magnesium (1.8-2.4) mg/dL 1.9 Total Bilirubin Cancelled 1.6 H AST Cancelled 33 ALT Cancelled 29 Alkaline Phosphatase Cancelled 128 H C-Reactive Protein (<or=0.5) mg/dL Total Protein Cancelled 7.9 Albumin Cancelled 3.1 L Vitamin B12 (193-986) pg/mL Folate (8.6-20.0) ng/mL Procalcitonin ng/mL 0.2 TSH (0.36-3.74) uIU/mL 0.59 Urine Color (Yellow) Urine Clarity (Clear) Urine pH (5-8) Ur Specific [place] (1.005-1.025) Urine Protein (Neg-Trace) mg/dL Urine Ketones (Negative) mg/dL Urine Blood (Negative) Urine Nitrite (Negative) Urine Bilirubin (Negative) Urine Urobilinogen (Up to 0.2) mg/dL Ur Leukocyte Esterase (Negative) Urine RBC (0-2) HPF Urine WBC (0-5) HPF Ur Epithelial Cells (Negative) HPF Urine Crystals (Negative) HPF Urine Bacteria (Negative) HPF Urine Mucus (Negative) Ur Culture Indicated? Urine Glucose (Negative) mg/dL BAL Neutrophils % BAL Lymphocytes % BAL Eosinophils % BAL Monocyte/Macrophage % Proteinase 3 (PR3) U Myeloperoxidase Ab U Gram Stain COVID-19 Source Nasopharynx SARS-CoV-2 (PCR) (Negative) Negative Influenza Type A (PCR) (Negative) Negative Influenza Type B (PCR) (Negative) Negative RSV (PCR) (Negative) Negative Aerobic Culture Ref Test Specimen Type Ref Report Verification Range/Units 11/08/23 11/08/23 11/09/23 14:10 16:26 06:11 WBC (4.4-10.8) 10^3/uL 11.47 H RBC (4.36-5.78) 10^6/uL 3.03 L Hgb (13.5-17.5) g/dL 10.3 L Hct (40.0-50.0) % 29.1 L MCV (80-95) fL 96 H MCH (27.0-33.0) pg 34.0 H MCHC (32.0-36.0) % 35.4 RDW (11.8-14.1) % 13.2 Plt Count (130-400) 10^3/uL 250 MPV (8.0-11.0) fL 8.5 Immature Gran % % 0.8 Neutrophils % % 76.4 Band Neutrophils % % Lymphocytes % % 12.6 Monocytes % % 9.9 Eosinophils % % 0.0 Basophils % % 0.3 Nucleated RBC % (0.0-0.3) % 0.0 Absolute Neutrophils (1.2-6.7) 10^3/uL 8.76 H Absolute Lymphocytes (1.2-3.4) 10^3/uL 1.45 Absolute Monocytes (0.1-0.8) 10^3/uL 1.14 H Absolute Eosinophils (0.0-0.7) 10^3/uL 0.00 Absolute Basophils (0.0-0.2) 10^3/uL 0.03 RBC Morphology ESR (0-20) mm/hr PT (9.1-11.1) sec INR (0.9-1.1) APTT (23.6-32.8) sec VBG pH (7.31-7.41) VBG pCO2 (41-51) mmHg VBG pO2 mmHg VBG HCO3 (23-28) mmol/L VBG Total CO2 (24-29) mmol/L VBG O2 Saturation % VBG Base Excess (-2-3) mmol/L VBG Lactate (0.6-1.4) mmol/L 1.6 H Sodium 139 Potassium 4.2 Chloride 105 Carbon Dioxide 21.6 Anion Gap 12.4 H BUN 31 H Creatinine 1.3 Est GFR (CKD-EPI 2020) 60.96 Glucose 160 H Calcium 8.3 L Magnesium (1.8-2.4) mg/dL Total Bilirubin 0.9 AST 35 ALT 31 Alkaline Phosphatase 121 H C-Reactive Protein (<or=0.5) mg/dL Total Protein 7.7 Albumin 2.8 L Vitamin B12 (193-986) pg/mL Folate (8.6-20.0) ng/mL Procalcitonin ng/mL TSH (0.36-3.74) uIU/mL Urine Color (Yellow) Yellow Urine Clarity (Clear) Clear Urine pH (5-8) 5.5 Ur Specific [place] (1.005-1.025) 1.015 Urine Protein (Neg-Trace) mg/dL 30 H Urine Ketones (Negative) mg/dL Negative Urine Blood (Negative) Large H Urine Nitrite (Negative) Negative Urine Bilirubin (Negative) Negative Urine Urobilinogen (Up to 0.2) mg/dL 1.0 H Ur Leukocyte Esterase (Negative) Negative Urine RBC (0-2) HPF 10-20 H Urine WBC (0-5) HPF 0-2 Ur Epithelial Cells (Negative) HPF Negative Urine Crystals (Negative) HPF Negative Urine Bacteria (Negative) HPF Negative Urine Mucus (Negative) Trace Ur Culture Indicated? No Urine Glucose (Negative) mg/dL 100 H BAL Neutrophils % BAL Lymphocytes % BAL Eosinophils % BAL Monocyte/Macrophage % Proteinase 3 (PR3) U Myeloperoxidase Ab U Gram Stain COVID-19 Source SARS-CoV-2 (PCR) (Negative) Influenza Type A (PCR) (Negative) Influenza Type B (PCR) (Negative) RSV (PCR) (Negative) Aerobic Culture Ref Test Specimen Type Ref Report Verification Range/Units 11/10/23 11/10/23 11/10/23 06:31 06:32 12:37 WBC (4.4-10.8) 10^3/uL 14.71 H RBC (4.36-5.78) 10^6/uL 2.88 L Hgb (13.5-17.5) g/dL 9.9 L Hct (40.0-50.0) % 27.7 L MCV (80-95) fL 96 H MCH (27.0-33.0) pg 34.4 H MCHC (32.0-36.0) % 35.7 RDW (11.8-14.1) % 13.5 Plt Count (130-400) 10^3/uL 260 MPV (8.0-11.0) fL 8.3 Immature Gran % % See Differential Neutrophils % % 72.0 Band Neutrophils % % 1 Lymphocytes % % 16.0 Monocytes % % 9.0 Eosinophils % % 1.0 Basophils % % 1.0 Nucleated RBC % (0.0-0.3) % 0.0 Absolute Neutrophils (1.2-6.7) 10^3/uL 10.74 H Absolute Lymphocytes (1.2-3.4) 10^3/uL 2.35 Absolute Monocytes (0.1-0.8) 10^3/uL 1.32 H Absolute Eosinophils (0.0-0.7) 10^3/uL 0.15 Absolute Basophils (0.0-0.2) 10^3/uL 0.15 RBC Morphology Normal ESR (0-20) mm/hr PT (9.1-11.1) sec INR (0.9-1.1) APTT (23.6-32.8) sec VBG pH (7.31-7.41) VBG pCO2 (41-51) mmHg VBG pO2 mmHg VBG HCO3 (23-28) mmol/L VBG Total CO2 (24-29) mmol/L VBG O2 Saturation % VBG Base Excess (-2-3) mmol/L VBG Lactate (0.6-1.4) mmol/L Sodium 142 Potassium 3.9 Chloride 107 Carbon Dioxide 21.7 Anion Gap 13.3 H BUN 30 H Creatinine 1.2 Est GFR (CKD-EPI 2020) 67.11 Glucose 148 H Calcium 8.4 L Magnesium (1.8-2.4) mg/dL Total Bilirubin AST ALT Alkaline Phosphatase C-Reactive Protein (<or=0.5) mg/dL Total Protein Albumin Vitamin B12 (193-986) pg/mL Folate (8.6-20.0) ng/mL Procalcitonin ng/mL TSH (0.36-3.74) uIU/mL Urine Color (Yellow) Urine Clarity (Clear) Urine pH (5-8) Ur Specific [place] (1.005-1.025) Urine Protein (Neg-Trace) mg/dL Urine Ketones (Negative) mg/dL Urine Blood (Negative) Urine Nitrite (Negative) Urine Bilirubin (Negative) Urine Urobilinogen (Up to 0.2) mg/dL Ur Leukocyte Esterase (Negative) Urine RBC (0-2) HPF Urine WBC (0-5) HPF Ur Epithelial Cells (Negative) HPF Urine Crystals (Negative) HPF Urine Bacteria (Negative) HPF Urine Mucus (Negative) Ur Culture Indicated? Urine Glucose (Negative) mg/dL BAL Neutrophils % 84 BAL Lymphocytes % 3 BAL Eosinophils % 4 BAL Monocyte/Macrophage % 9 Proteinase 3 (PR3) U <0.2 Myeloperoxidase Ab U >8.0 H Gram Stain Neutrophils Present A COVID-19 Source SARS-CoV-2 (PCR) (Negative) Influenza Type A (PCR) (Negative) Influenza Type B (PCR) (Negative) RSV (PCR) (Negative) Aerobic Culture Ref Test Specimen Type Ref Report Verification Range/Units 11/10/23 11/10/23 11/10/23 12:37 12:37 12:37 WBC (4.4-10.8) 10^3/uL RBC (4.36-5.78) 10^6/uL Hgb (13.5-17.5) g/dL Hct (40.0-50.0) % MCV (80-95) fL MCH (27.0-33.0) pg MCHC (32.0-36.0) % RDW (11.8-14.1) % Plt Count (130-400) 10^3/uL MPV (8.0-11.0) fL Immature Gran % % Neutrophils % % Band Neutrophils % % Lymphocytes % % Monocytes % % Eosinophils % % Basophils % % Nucleated RBC % (0.0-0.3) % Absolute Neutrophils (1.2-6.7) 10^3/uL Absolute Lymphocytes (1.2-3.4) 10^3/uL Absolute Monocytes (0.1-0.8) 10^3/uL Absolute Eosinophils (0.0-0.7) 10^3/uL Absolute Basophils (0.0-0.2) 10^3/uL RBC Morphology ESR (0-20) mm/hr PT (9.1-11.1) sec INR (0.9-1.1) APTT (23.6-32.8) sec VBG pH (7.31-7.41) VBG pCO2 (41-51) mmHg VBG pO2 mmHg VBG HCO3 (23-28) mmol/L VBG Total CO2 (24-29) mmol/L VBG O2 Saturation % VBG Base Excess (-2-3) mmol/L VBG Lactate (0.6-1.4) mmol/L Sodium Potassium Chloride Carbon Dioxide Anion Gap BUN Creatinine Est GFR (CKD-EPI 2020) Glucose Calcium Magnesium (1.8-2.4) mg/dL Total Bilirubin AST ALT Alkaline Phosphatase C-Reactive Protein (<or=0.5) mg/dL Total Protein Albumin Vitamin B12 (193-986) pg/mL Folate (8.6-20.0) ng/mL Procalcitonin ng/mL TSH (0.36-3.74) uIU/mL Urine Color (Yellow) Urine Clarity (Clear) Urine pH (5-8) Ur Specific [place] (1.005-1.025) Urine Protein (Neg-Trace) mg/dL Urine Ketones (Negative) mg/dL Urine Blood (Negative) Urine Nitrite (Negative) Urine Bilirubin (Negative) Urine Urobilinogen (Up to 0.2) mg/dL Ur Leukocyte Esterase (Negative) Urine RBC (0-2) HPF Urine WBC (0-5) HPF Ur Epithelial Cells (Negative) HPF Urine Crystals (Negative) HPF Urine Bacteria (Negative) HPF Urine Mucus (Negative) Ur Culture Indicated? Urine Glucose (Negative) mg/dL BAL Neutrophils % BAL Lymphocytes % BAL Eosinophils % BAL Monocyte/Macrophage % Proteinase 3 (PR3) U Myeloperoxidase Ab U Gram Stain SEE BELOW A COVID-19 Source SARS-CoV-2 (PCR) (Negative) Influenza Type A (PCR) (Negative) Influenza Type B (PCR) (Negative) RSV (PCR) (Negative) Aerobic Culture No Growth SEE BELOW Ref Test Specimen Type Not Applicable Not Applicable Ref Report Verification Not Applicable Range/Units 11/10/23 11/11/23 11/13/23 12:37 05:30 06:14 WBC (4.4-10.8) 10^3/uL 9.73 RBC (4.36-5.78) 10^6/uL 2.81 L Hgb (13.5-17.5) g/dL 9.2 L Hct (40.0-50.0) % 28.0 L MCV (80-95) fL 100 H D MCH (27.0-33.0) pg 32.7 MCHC (32.0-36.0) % 32.9 D RDW (11.8-14.1) % 13.5 Plt Count (130-400) 10^3/uL 253 MPV (8.0-11.0) fL 8.7 Immature Gran % % 1.4 Neutrophils % % 84.8 Band Neutrophils % % Lymphocytes % % 10.7 Monocytes % % 2.9 Eosinophils % % 0.1 Basophils % % 0.1 Nucleated RBC % (0.0-0.3) % 0.0 Absolute Neutrophils (1.2-6.7) 10^3/uL 8.25 H Absolute Lymphocytes (1.2-3.4) 10^3/uL 1.04 L Absolute Monocytes (0.1-0.8) 10^3/uL 0.28 Absolute Eosinophils (0.0-0.7) 10^3/uL 0.01 Absolute Basophils (0.0-0.2) 10^3/uL 0.01 RBC Morphology ESR (0-20) mm/hr 41 H PT (9.1-11.1) sec INR (0.9-1.1) APTT (23.6-32.8) sec VBG pH (7.31-7.41) VBG pCO2 (41-51) mmHg VBG pO2 mmHg VBG HCO3 (23-28) mmol/L VBG Total CO2 (24-29) mmol/L VBG O2 Saturation % VBG Base Excess (-2-3) mmol/L VBG Lactate (0.6-1.4) mmol/L Sodium 140 Potassium 4.2 Chloride 106 Carbon Dioxide 21.5 Anion Gap 12.5 H BUN 32 H Creatinine 1.3 Est GFR (CKD-EPI 2020) 60.96 Glucose 244 H Calcium 7.8 L Magnesium (1.8-2.4) mg/dL Total Bilirubin AST ALT Alkaline Phosphatase C-Reactive Protein (<or=0.5) mg/dL 2.40 H Total Protein Albumin Vitamin B12 (193-986) pg/mL Folate (8.6-20.0) ng/mL Procalcitonin ng/mL TSH (0.36-3.74) uIU/mL Urine Color (Yellow) Urine Clarity (Clear) Urine pH (5-8) Ur Specific [place] (1.005-1.025) Urine Protein (Neg-Trace) mg/dL Urine Ketones (Negative) mg/dL Urine Blood (Negative) Urine Nitrite (Negative) Urine Bilirubin (Negative) Urine Urobilinogen (Up to 0.2) mg/dL Ur Leukocyte Esterase (Negative) Urine RBC (0-2) HPF Urine WBC (0-5) HPF Ur Epithelial Cells (Negative) HPF Urine Crystals (Negative) HPF Urine Bacteria (Negative) HPF Urine Mucus (Negative) Ur Culture Indicated? Urine Glucose (Negative) mg/dL BAL Neutrophils % BAL Lymphocytes % BAL Eosinophils % BAL Monocyte/Macrophage % Proteinase 3 (PR3) U Myeloperoxidase Ab U Gram Stain COVID-19 Source SARS-CoV-2 (PCR) (Negative) Influenza Type A (PCR) (Negative) Influenza Type B (PCR) (Negative) RSV (PCR) (Negative) Aerobic Culture Ref Test Specimen Type Ref Report Verification Not Applicable Range/Units 11/13/23 11/16/23 06:19 06:16 WBC (4.4-10.8) 10^3/uL 16.38 H 17.96 H RBC (4.36-5.78) 10^6/uL 2.76 L 2.71 L Hgb (13.5-17.5) g/dL 9.1 L 9.0 L Hct (40.0-50.0) % 27.6 L 27.0 L MCV (80-95) fL 100 H 100 H MCH (27.0-33.0) pg 33.0 33.2 H MCHC (32.0-36.0) % 33.0 33.3 RDW (11.8-14.1) % 13.7 13.7 Plt Count (130-400) 10^3/uL 320 304 MPV (8.0-11.0) fL 8.7 8.7 Immature Gran % % 2.8 Neutrophils % % 78.3 Band Neutrophils % % Lymphocytes % % 12.8 Monocytes % % 5.1 Eosinophils % % 0.8 Basophils % % 0.2 Nucleated RBC % (0.0-0.3) % 0.1 Absolute Neutrophils (1.2-6.7) 10^3/uL 14.06 H Absolute Lymphocytes (1.2-3.4) 10^3/uL 2.30 Absolute Monocytes (0.1-0.8) 10^3/uL 0.92 H Absolute Eosinophils (0.0-0.7) 10^3/uL 0.14 Absolute Basophils (0.0-0.2) 10^3/uL 0.04 RBC Morphology ESR (0-20) mm/hr PT (9.1-11.1) sec INR (0.9-1.1) APTT (23.6-32.8) sec VBG pH (7.31-7.41) VBG pCO2 (41-51) mmHg VBG pO2 mmHg VBG HCO3 (23-28) mmol/L VBG Total CO2 (24-29) mmol/L VBG O2 Saturation % VBG Base Excess (-2-3) mmol/L VBG Lactate (0.6-1.4) mmol/L Sodium 137 Potassium 4.3 Chloride 105 Carbon Dioxide 22.1 Anion Gap 9.9 BUN 38 H Creatinine 1.3 Est GFR (CKD-EPI 2020) 60.96 Glucose 161 H Calcium 8.0 L Magnesium (1.8-2.4) mg/dL Total Bilirubin AST ALT Alkaline Phosphatase C-Reactive Protein (<or=0.5) mg/dL Total Protein Albumin Vitamin B12 (193-986) pg/mL 1180 H Folate (8.6-20.0) ng/mL 17.1 Procalcitonin ng/mL TSH (0.36-3.74) uIU/mL Urine Color (Yellow) Urine Clarity (Clear) Urine pH (5-8) Ur Specific [place] (1.005-1.025) Urine Protein (Neg-Trace) mg/dL Urine Ketones (Negative) mg/dL Urine Blood (Negative) Urine Nitrite (Negative) Urine Bilirubin (Negative) Urine Urobilinogen (Up to 0.2) mg/dL Ur Leukocyte Esterase (Negative) Urine RBC (0-2) HPF Urine WBC (0-5) HPF Ur Epithelial Cells (Negative) HPF Urine Crystals (Negative) HPF Urine Bacteria (Negative) HPF Urine Mucus (Negative) Ur Culture Indicated? Urine Glucose (Negative) mg/dL BAL Neutrophils % BAL Lymphocytes % BAL Eosinophils % BAL Monocyte/Macrophage % Proteinase 3 (PR3) U Myeloperoxidase Ab U Gram Stain COVID-19 Source SARS-CoV-2 (PCR) (Negative) Influenza Type A (PCR) (Negative) Influenza Type B (PCR) (Negative) RSV (PCR) (Negative) Aerobic Culture Ref Test Specimen Type Ref Report Verification
[2023-11-16 07:41] VITALS: PULSE 68; RESP 17; RESP 3; RESP 9; O2SAT 96
[2023-11-16] MEDS: Albuterol/Ipratropium 3 ML UPD VIAL UPD (07:41)
[2023-11-16 07:45] VITALS: PULSE 69; RESP 17; RESP 3; RESP 9; O2SAT 95
[2023-11-16 07:46] VITALS: O2SAT 93; O2SAT 96
[2023-11-16 08:07] VITALS: BP 134/75; PULSE 84; RESP 19; TEMP 36.9; O2SAT 92
[2023-11-16] MEDS: Insulin Aspart 300 UNITS/3 ML PEN SC ×2 (09:09→12:36)
[2023-11-16] MEDS: Cholecalciferol (Vitamin D3) 1,000 UNIT TAB 1000 UNITS PO (09:11)
[2023-11-16] MEDS: amLODIPine 5 MG TAB PO (09:11)
[2023-11-16] MEDS: Sulfameth/Trimeth DS TAB 1 TAB PO (09:11)
[2023-11-16] MEDS: Multivitamin w/Minerals TAB 1 TAB PO (09:11)
[2023-11-16] MEDS: Metoprolol CR 50 MG TABCR PO (09:11)
[2023-11-16] MEDS: Lisinopril 20 MG TAB PO (09:11)
[2023-11-16] MEDS: predniSONE 20 MG TAB 60 MG PO (09:11)
[2023-11-16] MEDS: Normal Saline Flush 10 ML SYR IVP (09:12)
[2023-11-16 09:54] LABS: C4 Complement 9 mg/dL (13-39)
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
[2023-11-16 12:00] VITALS: O2SAT 93
--- NOTE | 2023-11-16 12:32 | W.INDIABCONS ---
Date of service: 11/16/23 Time of Service: 12:40 Diabetes Inpatient Consult Reason for Visit: Diabetes education, insulin teaching, glucometer education DESCRIPTION/ASSESSMENT: Received consult above on this 63yo male pt who was admitted after coming in with flu symptoms and found to be in hypoxic resp failure with alveolar hemorrhage and granulomatosis with polyangitis. PMH significant for anemia, GERD, diet controlled DMII. PT being d/c's today on prednisone taper and has had hyperglycemic response - discharging on 30units Humulin to cover hyperglycemia from steroid. REviewed with patient to follow the prednisone taper with 1/2 the amount of insulin in units (15units for 30mg prednisone, etc...) Nursing was in the room at the time of visit and was providing insulin administration education using his correction dose for lunch. I asked about glucometer and he has a acutcheck lite at home with strips and states he knows how to use it. REcommended he check glucose at fasting and then ~2-3 hours after taking the prednisone and insulin as it peaks 2-4 hours after meal. Also recommneded checking if feeling sx of hypo/hyper glycemia. INTERVENTION: gave my contact info for outpatient nutrition services PLAN: pt will call if desiring outpt dieabetes education/mgt Time Spent in Nutritional Counseling and Treatment: 15 minutes
[2023-11-16 13:36] VITALS: PULSE 79; PULSE 88; RESP 28; O2SAT 88; O2SAT 93
--- NOTE | 2023-11-16 13:39 | RESPIRATORY ---
Exercise Oximetry Test Rest SPO2 on RA 93%, HR 79, RR 28 Pt exercised 450ft on RA; SPO2 ranged 88-90% on RA during exercise Recovery period, pt remained on RA, 93% SPO2 Pt does not qualify for home O2 based on these results.
--- NOTE | 2023-11-16 13:49 | IN_ITS ---
Date of service: 11/16/23 Time of Service: 13:55 PT Notes Visit Reasons: Severe Sepsis, Community Acquired Pneumonia Date: 11/16/23 Referring Doctor: Jose Farrell PT Orders: PT CONSULT: Safety consult for D/C Precautions: Standard Patient Profile/Admitting Diagnosis: 63 yo admitted for respiratory failure initially thought to have pneumonia, but found to have DAH on bronchoscopy leading to a diagnosis of GPA. He completed 3 days of high dose methylprednisilone 1g daily and is now on prednisone 60mg daily, being discharged home today. Referred to PT for safety consultation prior to discharge. Social History/Home Situation: Private home with , no AD at baseline. Two story home, bedroom on second floor with rail on stairway. will be home to support him. Equipment Owned/DME: None Subjective: Feels winded and short of breath, but can control it with his movement speed. He feels confident in his abilities and has been moving about the room independently, and climbed stairs yesterday with nursing w no problem when going to diagnostic imaging. Objective: General Observation: Sitting stable in hospital chair, regular close, present. Ready for discharge. Mental Status: A&Ox3 Vitals stable ROM: Right Upper Extremity: WNL Left Upper Extremity: WNL Right Lower Extremity: WNL Left Lower Extremity:WNL Strength: Right Upper Extremity: Grossly 5/5 Left Upper Extremity: Grossly 5/5 Right Lower Extremity: Grossly 5/5 Left Lower Extremity: Grossly 5/5 Bed Mobility/Transfers: Independent bed mobility, transfers Gait: WNL, slow, no AD, stable Balance: Static Sitting: Good Dynamic Sitting: Good Static Standing: Good Dynamic Standing: Good Gonzales 56/56, winded Special Tests: Mobility Limitations Standardized Measure [facility] AM-PAC 6 clicks Basic Mobility Inpatient Short Form: 0% disability Informed Consent/Education: Patient instructed in purpose of PT consult and plan of care. Treatment: Initial evaluation [id number] Assessment: Patient is a 63year old male referred to physical therapy services with reason for PT evaluation of safety consult for discharge, w/ admitted diagnosis of GPA on for primary limitations of shortness of breath with physical exertion, but despite this patient is demonstrating safety and steadiness with dynamic ADLs and transfers, household movements allowing for safe discharge home with supervision. Outpatient physical therapy referral required upon discharge to improve endurance, and pulmonary performance to progress toward baseline level of activity and support improved quality of life. Patient is assessed as low complexity based on the following: History: Lives in a private home with his , medical list in EMR, no acute GPA. Examination: Appropriate for discharge home, independent with all self-care, ADLs, and functional transfers Presentation: Stable Decision Making: Easy Plan: Discharged DISCHARGE RECOMMENDATIONS: Outpatient PT referral strongly recommended TREATMENT CODE/TIME: 15 minutes, 01999, 1 55-2 10 Sandra Islas, MPT [facility]
[2023-11-16 15:36] LABS: C4 Complement,Functional 40 U/mL (22 - 45)
--- NOTE | 2023-11-16 15:44 | CMDISCH_ITS ---
Date of service: 11/16/23 Time of Service: 15:44 LACE Index Scoring Tool Questions: Length of Stay (in days): 7 - 13 Was the patient admitted via the E.D.?: Yes Comorbidities: Diabetes w/o Complication E.D. Visits: 0 Answers: Total Score: 9 Risk of Readmission: Low Risk Care Management Discharge Plan Reason for Hospitalization: severe sepsis, CAP Discharge Plan: Efra returned home today with no new services. He was on room ai r, and did not qualify for home O2 at this time. provided a return to work letter, as requested by MD. His drove him home via private vehicle. He will follow up with his PCP and discharge plan of care. Patient/Family Education Needs: Review discharge instructions and limitations, discussion of self care needs including ask me three. SDOH Health Related Social Needs: No Data to Display
--- NOTE | 2023-11-16 15:47 | CMDISCH_ITS ---
Date of service: 11/16/23 Time of Service: 15:48 LACE Index Scoring Tool Questions: Length of Stay (in days): 7 - 13 Was the patient admitted via the E.D.?: Yes Comorbidities: Diabetes w/o Complication E.D. Visits: 0 Answers: Total Score: 9 Risk of Readmission: Low Risk Care Management Discharge Plan Reason for Hospitalization: severe sepsis, CAP Discharge Plan: Efra will return home once medically cleared with new medication s and close outpatient follow up. Anticipated new home O2; Jamal RT reports that Efra passed his exercise oximetry test and she recommended to him that he purchase a pulse oximetry for home use instead of relying on the tracker on his watch. Efra will follow up with outpatient PT; per recommendations. He will follow up with his PCP, Pulmonology and discharge plan of care as prescribed. His will drive him home via private vehicle. Patient/Family Education Needs: Review discharge instructions, self care needs upon discharge; Ask Me Three. Services Needed at Discharge: Outpatient Therapy (PT) and Respiratory Care Services (Close follow up with Pulmonology ) SDOH Health Related Social Needs: No Data to Display Care Management Referrals: PCP CCC (Efra asked CM to follow up on short term disability paperwork, which was sent to his PCP office. CM called [facility], and was informed that it has been received, and his new PCP, Mickey Kamara, will be filling it out. )
[2023-11-17 09:03] LABS: Complement C1q, S 12 mg/dL (12 - 22)
[2023-11-17 13:49] LABS: Glomerular Basement Membr Ab <0.2 U
[2023-11-18 16:30] LABS: Activated Partial Thrombo Time 27 sec (25-37); DRVVT Screen Ratio 1.26 ratio (<1.20); INR 1.2 (0.9-1.1); Prothrombin Time (PT) 13.4 sec (9.4-12.5)
[2023-11-18 16:32] LABS: Lupus Anticoagulant Tech Inter See Comments
[2023-11-19 01:33] LABS: Anti-IgA 135 U/mL (<99)
[2023-11-20 09:14] LABS: Parainfluenza Type1 RNA Result Undetected; Specimen Description BAL
[2023-11-20 09:15] LABS: Adenovirus DNA Result Undetected; Metapneumovirus RNA Result Undetected; Parainfluenza Type2 RNA Result Undetected; Parainfluenza Type3 RNA Result Undetected; Parainfluenza Type4 RNA Result Undetected
[2023-11-20 09:28] LABS: Rhinovirus RNA Result Undetected
[2023-12-25 16:11] LABS: AFB Culture Result See Comments
[2023-12-25 16:14] LABS: AFB Culture Result See Comments
[2024-01-04 09:56] LABS: HEX LA 6 sec (<13)
[2024-01-04 10:09] LABS: Reviewed By See Comments
[2024-01-04 10:15] LABS: DRVVT Confirmation 0.83 ratio (<1.20); Thrombin Time (Bovine) 22.1 sec (15.8-24.9)
== END 2023-11-16 14:05 | disposition home or self-care (01) | DRG 542 ==
LOC: ER 12:21 → MS 13:02 → ICU 11-10 13:52 → MS 11-14 16:54
PROVIDERS: Internal Medicine; Nurse Practitioner Acute Care; Student in an Organized Health Care Education/Training Program; Admitting Provider Family Medicine; Emergency Provider Emergency Medicine; PCP Family Medicine; Visit Provider Family Medicine
PROC: 0BJ08ZZ Inspection of Tracheobronchial Tree, Via Natural or Artificial Opening Endoscopic (ICD-10-PCS; CPT 31622; principal; 2023-11-10 12:00)
DX: M31.30 Wegener's granulomatosis without renal involvement (principal); J96.01 Acute respiratory failure with hypoxia; R04.89 Hemorrhage from other sites in respiratory passages; J84.112 Idiopathic pulmonary fibrosis; E11.65 Type 2 diabetes mellitus with hyperglycemia; R31.9 Hematuria, unspecified; I77.6 Arteritis, unspecified; D50.0 Iron deficiency anemia secondary to blood loss (chronic); K21.9 Gastro-esophageal reflux disease without esophagitis; L80 Vitiligo; G47.00 Insomnia, unspecified; E78.1 Pure hyperglyceridemia; E55.9 Vitamin D deficiency, unspecified; I87.8 Other specified disorders of veins; Z87.891 Personal history of nicotine dependence; T38.0X5A Adverse effect of glucocorticoids and synthetic analogues, initial encounter
CPT/HCPCS: 31624; 00123; 36415; 71250; 80048; 80053; 80162; 82805; 83520; 84145; 85027; 85390; 85598; 85610; 85613; 85652; 85670; 85730; 86157; 86161; 87040; 87070; 87102; 87116; 87205; 87206; 87632; 87637; 94618; 94640; 96361; 96365; 96367; 96375; 97161; 97162; 97530; 99285; 71045; 81003; 81015; 82595; 82607; 82746; 83516; 83605; 83735; 84443; 85025; 86140; 86160; 88104; 88312; 94760; 99222; 99232; 99233; 99238; 99291; J0456; J0696; J1100; J1790; J1815; J1941; J2001; J2003; J2371; J2405; J2704; J2919; J3010; J7512; J7613; J7620

== ENCOUNTER 2023-12-23 04:50 | Outpatient (CLI) | payer OTHER, SELFPAY ==
[2023-12-23 16:12] LABS: Abs Immature Grans 0.41 10^3/uL (0.0-0.06); Absolute Eosinophil Count 0.01 10^3/uL (0.0-0.7); Absolute Lymphocyte Count 0.49 10^3/uL (1.2-3.4); Basophils % 0.2 %; Eosinophils % 0.1 %; HCT 35.1 % (40.0-50.0); Immature Grans % 3.4 %; Lymphocytes % 4.1 %; MCH 34.9 pg (27.0-33.0); MCHC 34.2 % (32.0-36.0); MCV 102 fL (80-95); MPV 8.5 fL (8.0-11.0); Monocytes % 3.7 %; Neutrophils % 88.5 %; Platelet Count 186 10^3/uL (130-400); RBC 3.44 10^6/uL (4.36-5.78); RDW 14.6 % (11.8-14.1); RDW-SD 54.9 fL; WBC 12.05 10^3/uL (4.4-10.8)
[2023-12-23 16:16] LABS: Absolute Basophil Count 0.02 10^3/uL (0.0-0.2); Absolute Monocyte Count 0.45 10^3/uL (0.1-0.8); Absolute Neutrophil Count 10.66 10^3/uL (1.2-6.7)
[2023-12-23 16:41] LABS: ALT 51 U/L (16-63); AST 19 U/L (15-37); Albumin 3.2 g/dL (3.4-5.0); Alkaline Phosphatase 73 U/L (46-116); BUN 42 mg/dL (7-18); Bilirubin, Total 0.42 mg/dL (0.2-1.0); CREATININE 1.7 mg/dL (0.70-1.30); Calcium 8.4 mg/dL (8.5-10.1); Chloride 100 mmol/L (98-107); Estimated GFR 44.18 (mL/min/1.73m2); Glucose 307 mg/dL (74-106); Potassium 4.8 mmol/L (3.5-5.1); Sodium 133 mmol/L (136-145); Total Protein 6.1 g/dL (6.4-8.2)
== END 2023-12-23 04:51 | disposition home or self-care (01) ==
LOC: LBO 04:50
PROVIDERS: Student in an Organized Health Care Education/Training Program; PCP Student in an Organized Health Care Education/Training Program; Visit Provider Student in an Organized Health Care Education/Training Program
DX: J84.112 Idiopathic pulmonary fibrosis (principal); Z51.81 Encounter for therapeutic drug level monitoring; K21.9 Gastro-esophageal reflux disease without esophagitis
CPT/HCPCS: 36415; 80053; 85025

== ENCOUNTER 2023-12-28 14:33 | Outpatient (REF) | payer OTHER, SELFPAY ==
[2023-12-28 16:19] LABS: Hemoglobin A1C 7.8 % (<5.7)
[2023-12-28 17:29] LABS: Calculated LDL 54 mg/dL (<100); Cholesterol 140 mg/dL (<200); HDL Cholesterol 59 mg/dL (40-60); Triglyceride 135 mg/dL (<150)
== END 2023-12-28 14:34 | disposition home or self-care (01) ==
LOC: NCHCN 14:33
PROVIDERS: PCP Student in an Organized Health Care Education/Training Program; Visit Provider Student in an Organized Health Care Education/Training Program
DX: E78.1 Pure hyperglyceridemia (principal); E11.9 Type 2 diabetes mellitus without complications
CPT/HCPCS: 80061; 83036

== ENCOUNTER 2024-01-01 01:39 | Outpatient (CLI) | payer OTHER, SELFPAY ==
[2024-01-01 11:52] LABS: ESR 5 mm/hr (0-20)
[2024-01-01 11:53] LABS: Abs Immature Grans 0.47 10^3/uL (0.0-0.06); Absolute Basophil Count 0.04 10^3/uL (0.0-0.2); Basophils % 0.3 %; Eosinophils % 0.2 %; HCT 35.2 % (40.0-50.0); HGB 12.3 g/dL (13.5-17.5); Immature Grans % 3.8 %; Lymphocytes % 6.5 %; MCH 34.5 pg (27.0-33.0); MCHC 34.9 % (32.0-36.0); MCV 99 fL (80-95); MPV 8.6 fL (8.0-11.0); Monocytes % 8.1 %; Neutrophils % 81.1 %; Platelet Count 185 10^3/uL (130-400); RBC 3.57 10^6/uL (4.36-5.78); RDW 14.6 % (11.8-14.1); RDW-SD 53.3 fL; WBC 12.37 10^3/uL (4.4-10.8)
[2024-01-01 11:54] LABS: Absolute Eosinophil Count 0.02 10^3/uL (0.0-0.7); Absolute Neutrophil Count 10.03 10^3/uL (1.2-6.7)
[2024-01-01 12:03] LABS: Bilirubin Negative (Negative); Blood Moderate (Negative); Clarity Clear (Clear); Glucose Negative (Negative); Ketones Negative (Negative); Leukocyte Esterase Negative (Negative); Nitrite Negative (Negative); Specific Gravity 1.015 (1.005-1.025); Urobilinogen 0.2 mg/dL (Up to 0.2)
[2024-01-01 12:08] LABS: ALT 52 U/L (16-63); AST 15 U/L (15-37); Albumin 3.2 g/dL (3.4-5.0); Alkaline Phosphatase 66 U/L (46-116); Anion Gap 11.1 mmol/L (3-11); BUN 37 mg/dL (7-18); Bilirubin, Total 0.45 mg/dL (0.2-1.0); CO2 21.9 mmol/L (21.0-32.0); CREATININE 1.5 mg/dL (0.70-1.30); Calcium 8.7 mg/dL (8.5-10.1); Chloride 103 mmol/L (98-107); Estimated GFR 51.35 (mL/min/1.73m2); Glucose 109 mg/dL (74-106); Potassium 4.6 mmol/L (3.5-5.1); Sodium 136 mmol/L (136-145); Total Protein 6.4 g/dL (6.4-8.2)
[2024-01-01 12:08] LABS: Epithelial Cells Rare HPF (Negative); WBC 0-2 HPF (0-5)
[2024-01-01 12:09] LABS: Bacteria Rare HPF (Negative); C & S Indicated? No; Casts Negative LPF (Negative); Crystals Negative HPF (Negative); Mucus Negative (Negative)
[2024-01-01 12:11] LABS: C-Reactive Protein < 0.50 mg/dL (<or=0.5)
[2024-01-01 12:41] LABS: COMMENT (LAB VIEW ONLY) 51.46 mg/dL; PROTEIN 19.4 mg/dL; Prot/Crea Ur Ratio 0.37
[2024-01-04 12:07] LABS: Myeloperoxidase Ab IgG 5.7 U; Proteinase 3 Ab (PR3) <0.2 U
[2024-02-11 12:17] LABS: c-ANCA Negative (Negative); p-ANCA Positive (Negative)
== END 2024-01-01 01:40 | disposition home or self-care (01) ==
PROVIDERS: PCP Student in an Organized Health Care Education/Training Program; Visit Provider Student in an Organized Health Care Education/Training Program
DX: I77.82 Antineutrophilic cytoplasmic antibody [ANCA] vasculitis (principal); M31.7 Microscopic polyangiitis
CPT/HCPCS: 36415; 80053; 85652; 81003; 81015; 82565; 83516; 84156; 85025; 86140; 86255

== ENCOUNTER 2024-01-13 10:34 | Outpatient (CLI) | payer OTHER, SELFPAY ==
[2024-01-13 11:12] LABS: Abs Immature Grans 0.55 10^3/uL (0.0-0.06); HCT 35.9 % (40.0-50.0); HGB 12.2 g/dL (13.5-17.5); MCH 34.4 pg (27.0-33.0); MCV 101 fL (80-95); MPV 8.4 fL (8.0-11.0); Platelet Count 166 10^3/uL (130-400); RBC 3.55 10^6/uL (4.36-5.78); RDW 15.2 % (11.8-14.1); RDW-SD 56.9 fL; WBC 11.12 10^3/uL (4.4-10.8)
[2024-01-13 11:44] LABS: ALT 51 U/L (16-63); AST 17 U/L (15-37); Absolute Lymphocyte Count 1.45 10^3/uL (1.2-3.4); Absolute Monocyte Count 0.78 10^3/uL (0.1-0.8); Absolute Neutrophil Count 8.45 10^3/uL (1.2-6.7); Albumin 3.1 g/dL (3.4-5.0); Alkaline Phosphatase 63 U/L (46-116); Anion Gap 6.4 mmol/L (3-11); Atypical Lymphocytes % 0 %; BUN 31 mg/dL (7-18); Bands % 0 %; Bilirubin, Total 0.55 mg/dL (0.2-1.0); CO2 26.6 mmol/L (21.0-32.0); CREATININE 1.2 mg/dL (0.70-1.30); Calcium 8.7 mg/dL (8.5-10.1); Chloride 103 mmol/L (98-107); Estimated GFR 67.11 (mL/min/1.73m2); Glucose 107 mg/dL (74-106); Metamyelocytes % 2; Myelocytes % 2; Other Cells % 0; Potassium 4.1 mmol/L (3.5-5.1); Promyelocytes % 0; Sodium 136 mmol/L (136-145); TSH (W/Ref FT4) 0.41 uIU/mL (0.36-3.74); Total Protein 6.1 g/dL (6.4-8.2)
[2024-01-13 11:45] LABS: Diff Comment Manual Differential; RBC Morphology Normal
== END 2024-01-13 10:35 | disposition home or self-care (01) ==
LOC: LBO 10:34
PROVIDERS: PCP Student in an Organized Health Care Education/Training Program; Visit Provider Student in an Organized Health Care Education/Training Program
DX: R55 Syncope and collapse (principal)
CPT/HCPCS: 36415; 80053; 84443; 85025

== ENCOUNTER 2024-01-29 11:21 | Outpatient (RCR) | payer OTHER, SELFPAY ==
--- NOTE | 2024-01-29 11:24 | HOLTER_ITS ---
APPROVED REPORT Conclusion This is a 48-hour Holter monitor Rhythm throughout was sinus with an average heart rate of 78. Minimum was 57, maximum 106 There were very rare isolated ventricular ectopic beats There was 1 atrial premature contraction There was no atrial fibrillation, no high-grade AV block, no pauses greater than 3 seconds Symptoms were reported which did not correspond to any dysrhythmia
== END 2024-02-03 23:59 | disposition home or self-care (01) ==
LOC: CARDOPNVT 11:21
PROVIDERS: PCP Student in an Organized Health Care Education/Training Program; Visit Provider Student in an Organized Health Care Education/Training Program
DX: R55 Syncope and collapse (principal); I49.1 Atrial premature depolarization
CPT/HCPCS: 93225; 93226

== ENCOUNTER 2024-02-09 03:17 | Outpatient (CLI) | payer OTHER, SELFPAY ==
[2024-02-09] MEDS: Inhaler, Assist Device 1 EACH MC (11:59)
[2024-02-09] MEDS: Levalbuterol HFA 15 GM INH 4 PUFF IH (11:59)
--- NOTE | 2024-02-09 15:06 | W.PFT ---
Date of service: 02/09/24 Time of Service: 10:32 Pulmonary Function Test Result Requesting Provider Leila Gongora Indications: ILD Impression Spirometry shows normal FEV1/FVC at 83%. A mild decrease in FEV1 and a moderate decrease in FVC. Moderate decrease in total lung capacity and vital capacity with no air trapping. Moderate decrease in diffusion. Flow volume curves suggest restriction. Impression Moderate restrictive ventilatory defect with no air trapping and a moderate decrease in diffusion. Clinical Correlation therefore is recommended.
--- NOTE | 2024-02-10 10:17 | W.6MWT ---
Date of service: 02/09/24 Time of Service: 14:00 6 Minute Walk Test Note: Baseline O2 saturation of 93% on room air. Patient walked 221 m and demonstrated desaturations down to 84% going up flight of stairs..
== END 2024-02-09 03:18 | disposition home or self-care (01) ==
LOC: RT 03:17
PROVIDERS: PCP Student in an Organized Health Care Education/Training Program; Visit Provider Physician Assistant Surgical
DX: J84.89 Other specified interstitial pulmonary diseases (principal)
CPT/HCPCS: 00123; 94060; 94618; 94726; 94729

== ENCOUNTER 2024-02-16 08:13 | Outpatient (CLI) | payer OTHER, SELFPAY ==
--- NOTE | 2024-02-16 08:00 | RT.EKG_ITS ---
APPROVED REPORT Exam: Resting ECG Reason for Exam: syncope Patient Location: O HR:78 bpm ECG Measurements Heart Rate [address] 181 P 34 QRSd 86 QRS 8 QT 358 T 54 QTc 408 Conclusion Sinus rhythm...normal P axis, V-rate 50- 99 Normal Electrocardiogram Baseline wander in lead(s) III
== END 2024-02-16 08:14 | disposition home or self-care (01) ==
LOC: DI.CARD 08:14
PROVIDERS: PCP Student in an Organized Health Care Education/Training Program; Visit Provider Internal Medicine Cardiovascular Disease
DX: R55 Syncope and collapse (principal)
CPT/HCPCS: 93010

== ENCOUNTER 2024-03-18 01:26 | Outpatient (CLI) | payer OTHER, SELFPAY ==
[2024-03-18 09:45] LABS: Abs Immature Grans 0.21 10^3/uL (0.0-0.06); Absolute Basophil Count 0.06 10^3/uL (0.0-0.2); Absolute Eosinophil Count 0.24 10^3/uL (0.0-0.7); Absolute Lymphocyte Count 1.77 10^3/uL (1.2-3.4); Basophils % 0.5 %; Eosinophils % 2.1 %; HCT 37.1 % (40.0-50.0); HGB 12.5 g/dL (13.5-17.5); Immature Grans % 1.8 %; Lymphocytes % 15.3 %; MCH 35.4 pg (27.0-33.0); MCHC 33.7 % (32.0-36.0); MCV 105 fL (80-95); MPV 8.3 fL (8.0-11.0); Monocytes % 12.1 %; Neutrophils % 68.2 %; Nucleated RBC 0.2 % (0.0-0.3); Platelet Count 205 10^3/uL (130-400); RBC 3.53 10^6/uL (4.36-5.78); RDW 14.3 % (11.8-14.1); RDW-SD 55.1 fL; WBC 11.58 10^3/uL (4.4-10.8)
[2024-03-18 09:47] LABS: Bilirubin Negative (Negative); Blood Small (Negative); Clarity Clear (Clear); Glucose Negative (Negative); Ketones Negative (Negative); Leukocyte Esterase Negative (Negative); Nitrite Negative (Negative); Specific Gravity 1.015 (1.005-1.025); Urobilinogen 0.2 mg/dL (Up to 0.2)
[2024-03-18 09:56] LABS: Bacteria Rare HPF (Negative); C & S Indicated? No; Crystals Negative HPF (Negative); Epithelial Cells Negative HPF (Negative); Mucus Negative (Negative); RBC 0-2 HPF (0-2); WBC Negative HPF (0-5)
[2024-03-18 09:58] LABS: ESR 5 mm/hr (0-20)
[2024-03-18 10:03] LABS: ALT 32 U/L (16-63); AST 16 U/L (15-37); Albumin 3.4 g/dL (3.4-5.0); Alkaline Phosphatase 79 U/L (46-116); Anion Gap 8.8 mmol/L (3-11); BUN 25 mg/dL (7-18); Bilirubin, Total 0.58 mg/dL (0.2-1.0); CO2 27.2 mmol/L (21.0-32.0); CREATININE 1.3 mg/dL (0.70-1.30); Chloride 104 mmol/L (98-107); Estimated GFR 60.96 (mL/min/1.73m2); Glucose 120 mg/dL (74-106); Potassium 3.9 mmol/L (3.5-5.1); Sodium 140 mmol/L (136-145); Total Protein 6.6 g/dL (6.4-8.2)
[2024-03-18 10:05] LABS: C-Reactive Protein < 0.50 mg/dL (<or=0.5)
[2024-03-18 10:06] LABS: Diff Comment RBC Morph Reviewed; Macrocytosis 2+; Polychromasia Present
[2024-03-18 10:28] LABS: COMMENT (LAB VIEW ONLY) 91.81 mg/dL; PROTEIN 6.5 mg/dL; Prot/Crea Ur Ratio 0.07
[2024-03-21 13:43] LABS: Myeloperoxidase Ab IgG 4.4 U (>=0.4); Proteinase 3 Ab (PR3) <0.2 U
[2024-06-16 09:20] LABS: c-ANCA Negative (Negative); p-ANCA Positive (Negative)
== END 2024-03-18 01:27 | disposition home or self-care (01) ==
PROVIDERS: PCP Student in an Organized Health Care Education/Training Program; Visit Provider Student in an Organized Health Care Education/Training Program
DX: I77.82 Antineutrophilic cytoplasmic antibody [ANCA] vasculitis (principal); M31.7 Microscopic polyangiitis
CPT/HCPCS: 36415; 80053; 85652; 81003; 81015; 82565; 83516; 84156; 85025; 86140; 86255

== ENCOUNTER 2024-05-09 01:47 | Outpatient (CLI) | payer OTHER, SELFPAY ==
--- NOTE | 2024-05-09 | DI.DEXA_ITS ---
Exam(s) XR DEXA BONE DENSITY W/WO OWEN EXAM: XR DEXA BONE DENSITY W/WO OWEN CLINICAL HISTORY: Chronic prednisone use, Z79.52-current chronic use of systemic steroids; TECHNIQUE: COMPARISON: No exams were available for comparison FINDINGS: Lateral Spine Image: Unremarkable. No compression deformities identified. Left hip: Total T-Score: -0.2 Total Z-Score: 0.3 T- and Z-scores: Within normal limits. Lumbar Spine: Total T-Score: 0.4 Total Z-Score: 1.2 T- and Z-scores: Within normal limits. IMPRESSION: No evidence of osteoporosis.
== END 2024-05-09 02:07 ==
LOC: DI 01:47
PROVIDERS: PCP Student in an Organized Health Care Education/Training Program; Visit Provider Student in an Organized Health Care Education/Training Program
DX: Z79.52 Long term (current) use of systemic steroids (principal); Z13.820 Encounter for screening for osteoporosis
CPT/HCPCS: 77080

== ENCOUNTER 2024-05-09 11:24 | Outpatient (CLI) | payer OTHER, SELFPAY ==
[2024-05-09 12:07] LABS: Abs Immature Grans 0.07 10^3/uL (0.0-0.06); Absolute Basophil Count 0.05 10^3/uL (0.0-0.2); Absolute Eosinophil Count 0.38 10^3/uL (0.0-0.7); Absolute Lymphocyte Count 1.36 10^3/uL (1.2-3.4); Absolute Monocyte Count 1.68 10^3/uL (0.1-0.8); Absolute Neutrophil Count 7.06 10^3/uL (1.2-6.7); Basophils % 0.5 %; Eosinophils % 3.6 %; HCT 38.2 % (40.0-50.0); HGB 13.3 g/dL (13.5-17.5); Immature Grans % 0.7 %; Lymphocytes % 12.8 %; MCH 34.5 pg (27.0-33.0); MCHC 34.8 % (32.0-36.0); MCV 99 fL (80-95); MPV 8.9 fL (8.0-11.0); Monocytes % 15.8 %; Neutrophils % 66.6 %; Platelet Count 246 10^3/uL (130-400); RBC 3.85 10^6/uL (4.36-5.78); RDW 12.7 % (11.8-14.1); RDW-SD 45.6 fL
[2024-05-09 12:26] LABS: Bilirubin Negative (Negative); Blood Small (Negative); Clarity Clear (Clear); Glucose Negative (Negative); Ketones Negative (Negative); Leukocyte Esterase Negative (Negative); Nitrite Negative (Negative); Specific Gravity 1.015 (1.005-1.025); Urobilinogen 0.2 mg/dL (Up to 0.2); pH 5.5 (5-8)
[2024-05-09 12:27] LABS: Bacteria Negative HPF (Negative); C & S Indicated? No; Casts Negative LPF (Negative); Crystals Negative HPF (Negative); Epithelial Cells Rare HPF (Negative); Mucus Trace (Negative); WBC 0-2 HPF (0-5)
[2024-05-09 12:36] LABS: ALT 29 U/L (16-63); AST 22 U/L (15-37); Albumin 3.5 g/dL (3.4-5.0); Alkaline Phosphatase 103 U/L (46-116); Anion Gap 6.3 mmol/L (3-11); BUN 18 mg/dL (7-18); CO2 25.7 mmol/L (21.0-32.0); CREATININE 1.2 mg/dL (0.70-1.30); Calcium 8.8 mg/dL (8.5-10.1); Chloride 111 mmol/L (98-107); Estimated GFR 67.11 (mL/min/1.73m2); Glucose 99 mg/dL (74-106); Potassium 3.9 mmol/L (3.5-5.1); Sodium 143 mmol/L (136-145)
[2024-05-09 12:37] LABS: C-Reactive Protein < 0.50 mg/dL (<or=0.5); Diff Comment Agrees w/ Instrument; RBC Morphology Normal
[2024-05-09 12:49] LABS: ESR 14 mm/hr (0-20)
[2024-05-09 13:12] LABS: PROTEIN 14.8 mg/dL; Prot/Crea Ur Ratio 0.08
[2024-05-11 11:55] LABS: Myeloperoxidase Ab IgG 4.1 U (>=0.4); Proteinase 3 Ab (PR3) <0.2 U
== END 2024-05-09 11:25 | disposition home or self-care (01) ==
LOC: LBO 11:24
PROVIDERS: PCP Student in an Organized Health Care Education/Training Program; Visit Provider Student in an Organized Health Care Education/Training Program
DX: I77.82 Antineutrophilic cytoplasmic antibody [ANCA] vasculitis (principal); M31.7 Microscopic polyangiitis
CPT/HCPCS: 36415; 80053; 85652; 81003; 81015; 82565; 83516; 84156; 85025; 86140

== ENCOUNTER 2024-07-18 03:12 | Outpatient (CLI) | payer OTHER, SELFPAY ==
[2024-07-18 08:45] LABS: Abs Immature Grans 0.04 10^3/uL (0.0-0.06); Absolute Basophil Count 0.07 10^3/uL (0.0-0.2); Absolute Eosinophil Count 0.32 10^3/uL (0.0-0.7); Absolute Lymphocyte Count 1.76 10^3/uL (1.2-3.4); Absolute Monocyte Count 1.39 10^3/uL (0.1-0.8); Absolute Neutrophil Count 5.11 10^3/uL (1.2-6.7); Basophils % 0.8 %; Eosinophils % 3.7 %; HCT 40.2 % (40.0-50.0); HGB 13.8 g/dL (13.5-17.5); Immature Grans % 0.5 %; Lymphocytes % 20.3 %; MCH 33.1 pg (27.0-33.0); MCHC 34.3 % (32.0-36.0); MCV 96 fL (80-95); MPV 8.6 fL (8.0-11.0); Neutrophils % 58.7 %; Platelet Count 250 10^3/uL (130-400); RBC 4.17 10^6/uL (4.36-5.78); RDW 13.1 % (11.8-14.1); RDW-SD 46.6 fL; WBC 8.69 10^3/uL (4.4-10.8)
[2024-07-18 08:47] LABS: ESR 10 mm/hr (0-20)
[2024-07-18 08:47] LABS: Bilirubin Negative (Negative); Blood Negative (Negative); Clarity Clear (Clear); Glucose Negative (Negative); Ketones Negative (Negative); Leukocyte Esterase Negative (Negative); Nitrite Negative (Negative); Urobilinogen 0.2 mg/dL (Up to 0.2); pH 5.5 (5-8)
[2024-07-18 09:20] LABS: ALT 29 U/L (16-63); AST 20 U/L (15-37); Albumin 3.4 g/dL (3.4-5.0); Alkaline Phosphatase 117 U/L (46-116); Anion Gap 10.1 mmol/L (3-11); BUN 23 mg/dL (7-18); Bilirubin, Total 0.47 mg/dL (0.2-1.0); CO2 25.9 mmol/L (21.0-32.0); CREATININE 1.2 mg/dL (0.70-1.30); Calcium 9.2 mg/dL (8.5-10.1); Chloride 108 mmol/L (98-107); Estimated GFR 67.11 (mL/min/1.73m2); Glucose 102 mg/dL (74-106); Potassium 3.8 mmol/L (3.5-5.1); Sodium 144 mmol/L (136-145); Total Protein 6.7 g/dL (6.4-8.2)
[2024-07-18 09:23] LABS: C-Reactive Protein < 0.50 mg/dL (<or=0.5)
[2024-07-18 09:31] LABS: Calculated LDL 57 mg/dL (<100); Cholesterol 139 mg/dL (<200); HDL Cholesterol 40 mg/dL (40-60); Triglyceride 210 mg/dL (<150)
[2024-07-18 09:34] LABS: PROTEIN 21.4 mg/dL; Prot/Crea Ur Ratio 0.21
[2024-07-20 19:19] LABS: Myeloperoxidase Ab IgG 3.1 U (>=0.4); Proteinase 3 Ab (PR3) <0.2 U
[2024-08-12 11:32] LABS: c-ANCA Negative (Negative); p-ANCA Positive (Negative)
== END 2024-07-18 03:13 | disposition home or self-care (01) ==
PROVIDERS: PCP Student in an Organized Health Care Education/Training Program; Visit Provider Student in an Organized Health Care Education/Training Program
DX: Z13.220 Encounter for screening for lipoid disorders (principal); I77.82 Antineutrophilic cytoplasmic antibody [ANCA] vasculitis; M31.7 Microscopic polyangiitis
CPT/HCPCS: 36415; 80053; 80061; 85652; 81003; 82565; 83516; 84156; 85025; 86140; 86255

== ENCOUNTER 2024-10-07 11:34 | Outpatient (CLI) | payer OTHER, SELFPAY ==
[2024-10-07 12:00] LABS: Abs Immature Grans 0.03 10^3/uL (0.0-0.06); Absolute Basophil Count 0.04 10^3/uL (0.0-0.2); Absolute Eosinophil Count 0.34 10^3/uL (0.0-0.7); Absolute Lymphocyte Count 1.07 10^3/uL (1.2-3.4); Absolute Monocyte Count 1.35 10^3/uL (0.1-0.8); Absolute Neutrophil Count 6.93 10^3/uL (1.2-6.7); Basophils % 0.4 %; Eosinophils % 3.5 %; HCT 41.8 % (40.0-50.0); HGB 14.5 g/dL (13.5-17.5); Immature Grans % 0.3 %; MCH 34.3 pg (27.0-33.0); MCHC 34.7 % (32.0-36.0); MCV 99 fL (80-95); MPV 8.8 fL (8.0-11.0); Monocytes % 13.8 %; Platelet Count 230 10^3/uL (130-400); RBC 4.23 10^6/uL (4.36-5.78); RDW-SD 46.7 fL; WBC 9.76 10^3/uL (4.4-10.8)
[2024-10-07 12:02] LABS: ESR 9 mm/hr (0-20)
[2024-10-07 12:04] LABS: Bilirubin Negative (Negative); Blood Negative (Negative); Clarity Clear (Clear); Glucose Negative (Negative); Ketones Negative (Negative); Leukocyte Esterase Negative (Negative); Nitrite Negative (Negative); Urobilinogen 0.2 mg/dL (Up to 0.2); pH 5.5 (5-8)
[2024-10-07 12:19] LABS: COMMENT (LAB VIEW ONLY) 135.19 mg/dL; Prot/Crea Ur Ratio 0.06
[2024-10-07 12:25] LABS: ALT 34 U/L (16-63); AST 23 U/L (15-37); Albumin 3.6 g/dL (3.4-5.0); Alkaline Phosphatase 122 U/L (46-116); Anion Gap 10.2 mmol/L (3-11); BUN 23 mg/dL (7-18); Bilirubin, Total 0.5 mg/dL (0.2-1.0); CO2 25.8 mmol/L (21.0-32.0); CREATININE 1.2 mg/dL (0.70-1.30); Calcium 9.1 mg/dL (8.5-10.1); Chloride 107 mmol/L (98-107); Glucose 81 mg/dL (74-106); Potassium 3.9 mmol/L (3.5-5.1); Sodium 143 mmol/L (136-145); Total Protein 6.9 g/dL (6.4-8.2)
[2024-10-07 12:29] LABS: C-Reactive Protein < 0.50 mg/dL (<or=0.5)
[2024-10-10 08:34] LABS: IgA 222 mg/dL (85-499); IgG 698 mg/dL (610-1616); IgM 26 mg/dL (35-242)
[2024-10-10 18:05] LABS: Myeloperoxidase Ab IgG 3.9 U (>=0.4); Proteinase 3 Ab (PR3) <0.2 U
== END 2024-10-07 11:35 | disposition home or self-care (01) ==
LOC: LBO 11:35
PROVIDERS: PCP Student in an Organized Health Care Education/Training Program; Visit Provider Student in an Organized Health Care Education/Training Program
DX: I77.82 Antineutrophilic cytoplasmic antibody [ANCA] vasculitis (principal); M31.7 Microscopic polyangiitis
CPT/HCPCS: 36415; 80053; 82784; 85652; 81003; 82565; 83516; 84156; 85025; 86140

== ENCOUNTER 2024-12-23 01:12 | Outpatient (CLI) | payer OTHER, SELFPAY ==
[2024-12-23 09:23] LABS: Abs Immature Grans 0.04 10^3/uL (0.0-0.06); Absolute Basophil Count 0.06 10^3/uL (0.0-0.2); Absolute Eosinophil Count 0.36 10^3/uL (0.0-0.7); Absolute Lymphocyte Count 2.12 10^3/uL (1.2-3.4); Absolute Monocyte Count 1.49 10^3/uL (0.1-0.8); Absolute Neutrophil Count 4.35 10^3/uL (1.2-6.7); Basophils % 0.7 %; Eosinophils % 4.3 %; HCT 41.9 % (40.0-50.0); HGB 14.6 g/dL (13.5-17.5); Immature Grans % 0.5 %; Lymphocytes % 25.2 %; MCH 34.1 pg (27.0-33.0); MCHC 34.8 % (32.0-36.0); MCV 98 fL (80-95); MPV 8.9 fL (8.0-11.0); Monocytes % 17.7 %; Neutrophils % 51.6 %; Platelet Count 210 10^3/uL (130-400); RBC 4.28 10^6/uL (4.36-5.78); RDW-SD 43.6 fL; WBC 8.42 10^3/uL (4.4-10.8)
[2024-12-23 09:25] LABS: ESR 5 mm/hr (0-20)
[2024-12-23 09:26] LABS: Bilirubin Negative (Negative); Blood Negative (Negative); Clarity Clear (Clear); Glucose Negative (Negative); Ketones Negative (Negative); Leukocyte Esterase Negative (Negative); Nitrite Negative (Negative); Urobilinogen 0.2 mg/dL (Up to 0.2); pH 5.5 (5-8)
[2024-12-23 09:43] LABS: ALT 38 U/L (16-63); AST 22 U/L (15-37); Albumin 3.8 g/dL (3.4-5.0); Alkaline Phosphatase 128 U/L (46-116); BUN 28 mg/dL (7-18); Bilirubin, Total 0.5 mg/dL (0.2-1.0); CREATININE 1.4 mg/dL (0.70-1.30); Calcium 8.9 mg/dL (8.5-10.1); Chloride 105 mmol/L (98-107); Estimated GFR 55.43 (mL/min/1.73m2); Glucose 105 mg/dL (74-106); Potassium 3.9 mmol/L (3.5-5.1); Sodium 140 mmol/L (136-145); Total Protein 6.9 g/dL (6.4-8.2)
[2024-12-23 09:45] LABS: C-Reactive Protein < 0.50 mg/dL (<or=0.5)
[2024-12-23 10:14] LABS: COMMENT (LAB VIEW ONLY) 92.71 mg/dL
[2024-12-23 10:18] LABS: PROTEIN < 6.0 mg/dL
[2024-12-26 10:05] LABS: IgA 226 mg/dL (85-499); IgG 722 mg/dL (610-1616); IgM 30 mg/dL (35-242)
[2024-12-27 15:40] LABS: Misc Referral (UVM) See Comments
== END 2024-12-23 01:13 | disposition home or self-care (01) ==
LOC: LBO 01:12
PROVIDERS: PCP Student in an Organized Health Care Education/Training Program; Visit Provider Student in an Organized Health Care Education/Training Program
DX: I77.82 Antineutrophilic cytoplasmic antibody [ANCA] vasculitis (principal); Z79.52 Long term (current) use of systemic steroids; M31.7 Microscopic polyangiitis; Z79.899 Other long term (current) drug therapy
CPT/HCPCS: 36415; 80053; 82784; 85652; 86255; 81003; 82565; 83516; 84156; 85025; 86140

== ENCOUNTER 2024-12-23 01:20 | Outpatient (CLI) | payer OTHER, SELFPAY ==
--- NOTE | 2025-01-08 09:38 | W.PFT ---
Date of service: 12/23/24 Time of Service: 08:00 Pulmonary Function Test Result Indications: ILD Interpretation Spirometry: There is no airflow limitation. Diffusion Capacity: Reduced diffusion Impression Reduced diffusion Note: When compared to 02/09/24, the FVC and FEV1 have improved, however the DLCO remains unchanged. Clinical Correlation therefore is recommended.
== END 2024-12-23 01:21 | disposition home or self-care (01) ==
LOC: RT 01:20
PROVIDERS: PCP Student in an Organized Health Care Education/Training Program; Visit Provider Student in an Organized Health Care Education/Training Program
DX: J84.9 Interstitial pulmonary disease, unspecified (principal)
CPT/HCPCS: 94729; 94010

== ENCOUNTER 2025-03-24 01:04 | Outpatient (CLI) | payer OTHER, SELFPAY ==
[2025-03-24 09:21] LABS: Abs Immature Grans 0.03 10^3/uL (0.0-0.06); HCT 43.1 % (40.0-50.0); HGB 15.2 g/dL (13.5-17.5); Immature Grans % 0.4 %; MCH 34.4 pg (27.0-33.0); MCHC 35.3 % (32.0-36.0); MCV 98 fL (80-95); MPV 9.0 fL (8.0-11.0); Platelet Count 225 10^3/uL (130-400); RBC 4.42 10^6/uL (4.36-5.78); RDW 11.6 % (11.8-14.1); RDW-SD 41.7 fL; WBC 6.72 10^3/uL (4.4-10.8)
[2025-03-24 09:23] LABS: ESR 6 mm/hr (0-20)
[2025-03-24 09:26] LABS: Glucose Negative (Negative)
[2025-03-24 10:20] LABS: PROTEIN 9.0 mg/dL; Prot/Crea Ur Ratio 0.07
[2025-03-24 10:20] LABS: ALT 41 U/L (16-63); AST 31 U/L (15-37); Albumin 3.6 g/dL (3.4-5.0); Alkaline Phosphatase 139 U/L (46-116); Anion Gap 9.3 mmol/L (3-11); BUN 19 mg/dL (7-18); Bilirubin, Total 0.5 mg/dL (0.2-1.0); CO2 24.7 mmol/L (21.0-32.0); Calcium 9.0 mg/dL (8.5-10.1); Chloride 106 mmol/L (98-107); Estimated GFR 60.59 (mL/min/1.73m2); Glucose 115 mg/dL (74-106); Potassium 3.9 mmol/L (3.5-5.1); Sodium 140 mmol/L (136-145); Total Protein 6.7 g/dL (6.4-8.2)
[2025-03-24 10:21] LABS: C-Reactive Protein < 0.50 mg/dL (<or=0.5)
[2025-03-27 11:51] LABS: Myeloperoxidase Ab IgG 4.3 U (>=0.4)
== END 2025-03-24 01:05 | disposition home or self-care (01) ==
LOC: LBO 01:04
PROVIDERS: PCP Student in an Organized Health Care Education/Training Program; Visit Provider Student in an Organized Health Care Education/Training Program
DX: I77.82 Antineutrophilic cytoplasmic antibody [ANCA] vasculitis (principal); Z79.52 Long term (current) use of systemic steroids; M31.7 Microscopic polyangiitis; Z79.899 Other long term (current) drug therapy
CPT/HCPCS: 36415; 80053; 85652; 81003; 82565; 83516; 84156; 85025; 86140

== ENCOUNTER 2025-05-22 08:16 | Outpatient (RCR) | payer OTHER, SELFPAY | END 2025-06-04 23:59 | disposition home or self-care (01) | LOC: PRC 08:16 | PROVIDERS: PCP Student in an Organized Health Care Education/Training Program; Visit Provider Internal Medicine Pulmonary Disease | DX: J84.89 Other specified interstitial pulmonary diseases (principal); Z51.89 Encounter for other specified aftercare; R04.89 Hemorrhage from other sites in respiratory passages | CPT/HCPCS: 94626 ==

== ENCOUNTER 2025-06-23 14:00 | Outpatient (RCR) | payer OTHER, SELFPAY | END 2025-07-05 23:59 | disposition home or self-care (01) | LOC: PRC 14:00 | PROVIDERS: PCP Student in an Organized Health Care Education/Training Program; Visit Provider Internal Medicine Pulmonary Disease | DX: M31.7 Microscopic polyangiitis (principal); R04.89 Hemorrhage from other sites in respiratory passages; Z51.89 Encounter for other specified aftercare | CPT/HCPCS: 94626 ==

== ENCOUNTER 2025-06-26 01:16 | Outpatient (RCR) | payer OTHER, SELFPAY ==
[2025-06-26] VITALS (9 sets, daily range): BP systolic 130–164; BP diastolic 66–99; PULSE 63–74; RESP 18; TEMP 36.3–37; O2SAT 95–97
[2025-06-26] MEDS: methylPREDNISolone SUCC 40 MG VIAL (09:49)
[2025-06-26] MEDS: riTUXimab-PVVR 1,000 MG in Normal Saline 150 ML 62.5 MG IVPB (09:50)
[2025-06-26] MEDS: Normal Saline Flush 10 ML SYR IVP (09:50)
== END 2025-07-05 23:59 | disposition home or self-care (01) ==
LOC: INF 01:16
PROVIDERS: PCP Student in an Organized Health Care Education/Training Program; Visit Provider Family Medicine
DX: I77.82 Antineutrophilic cytoplasmic antibody [ANCA] vasculitis (principal)
CPT/HCPCS: 96365; 96366; J2919; Q5119